=== PATIENT | male | born 1955 | race Hispanic/Latino ===

== ENCOUNTER → 2018-03-30 | Outpatient (CLI) | payer MEDICARE ==
[~2018-03-30] VITALS: Ht 175.3 cm; Wt 90.7 kg
[~2018-03-30] MED LIST: ASPI-1181 PO; CARV3.12 PO; CLOP75TA14 PO; DOXY100T2 PO; INSLAN SQ; LINA5TAB PO; LISI-617 PO; METF-444 PO; METO10TA41 PO; PANT40TA25 PO; PRAV80TA21 PO; REGADENOSON 0.4 MG/5 ML PF SYG IVP SCH; TAMS0.4C32 PO; TRAM50TA4 PO
== END | disposition home or self-care (01) ==
LOC: SHCH 08:31
PROVIDERS: ATTEND Internal Medicine Cardiovascular Disease
DX: I25.119 Atherosclerotic heart disease of native coronary artery with unspecified angina pectoris (principal)
CPT/HCPCS: 78452; 93017; 96374; A9500 ×2; J2785

== ENCOUNTER 2018-04-05 10:32 | Day surgery (SDC) | payer MEDICARE ==
[2018-04-03 17:13] VITALS: BP 111/73
[2018-04-03 17:26] LABS: BASOPHILS % (AUTO) 0.8 % (0.0-5.0); EOSINOPHILS % (AUTO) 2.6 % (0.0-8.0); HEMATOCRIT 47.6 % (42-54); LYMPHOCYTES % (AUTO) 16.3 % (21.0-51.0); MEAN CORPUSCULAR HGB CONC 32.9 g/dL (32.0-36.0); MEAN CORPUSCULAR VOLUME 94.1 fL (79-99); MONOCYTES % (AUTO) 9.7 % (3.0-13.0); NEUTROPHILS % (AUTO) 70.6 % (40.0-77.0); PLATELET COUNT (AUTO) 307 K/uL (130-400); RED BLOOD CELL COUNT(AUTO) 5.06 MIL/uL (4.50-6.20)
[2018-04-03 17:40] LABS: CREATININE 1.5 mg/dL (0.5-1.5); POTASSIUM 4.6 mmol/L (3.5-5.1)
[2018-04-03 17:42] LABS: INR 0.92 (0.85-1.15); PROTHROMBIN TIME 9.7 SEC (9.6-11.6)
[2018-04-03 17:58] LABS: APPEARANCE,URINE SL CLOUDY (CLEAR); BILIRUBIN,URINE NEGATIVE (NEGATIVE); COLOR,URINE YELLOW (YELLOW); GLUCOSE, URINE (UA) NEGATIVE (NEGATIVE); KETONES,URINE 5 mg/dL (NEGATIVE); LEUKOCYTE ESTERASE ,URINE SMALL (NEGATIVE); NITRATE,URINE NEGATIVE (NEGATIVE); OCCULT BLOOD,URINE TRACE-INTACT (NEGATIVE); PROTEIN,URINE 30 (NEGATIVE); UROBILINOGEN,URINE 0.2 mg/dL (0.2-1.0)
[2018-04-03 18:08] LABS: BACTERIA,URINE Few /HPF (None Seen); CALCIUM PHOSPHATE CRYSTALS,UR Few /LPF (None Seen); SQUAMOUS EPITHELIAL CELL,UR Few /HPF (0-2)
[2018-04-03 18:09] LABS: MUCUS,URINE Few LPF (None Seen)
[~2018-04-05] VITALS: Ht 175.3 cm; Wt 92.1 kg
[2018-04-05] VITALS (10 sets, daily range): BP systolic 98–121; BP diastolic 62–79
[~2018-04-05 10:32] MED LIST changes: -DOXY100T2 PO; -REGADENOSON 0.4 MG/5 ML PF SYG IVP SCH; -TRAM50TA4 PO
[2018-04-05 10:57] LABS: BASOPHILS % (AUTO) 0.9 % (0.0-5.0); EOSINOPHILS % (AUTO) 2.3 % (0.0-8.0); HEMATOCRIT 44.7 % (42-54); LYMPHOCYTES % (AUTO) 14.9 % (21.0-51.0); MEAN CORPUSCULAR HEMOGLOBIN 31.6 pg (27.0-33.0); MEAN CORPUSCULAR HGB CONC 33.9 g/dL (32.0-36.0); MEAN CORPUSCULAR VOLUME 93.2 fL (79-99); NEUTROPHILS % (AUTO) 74.9 % (40.0-77.0); PLATELET COUNT (AUTO) 259 K/uL (130-400); RED CELL DISTRIBUTION WIDTH 13.9 % (11.0-15.5); WHITE BLOOD COUNT (AUTO) 10.2 K/uL (4.8-10.8)
[2018-04-05] MEDS ORDERED: SODIUM CHLORIDE 0.9% 1000ML 1,000 ML IV ONE (12:40)
[2018-04-05] MEDS ORDERED: LIDOCAINE HCL-MPF 2% 5ML VIAL ONE ×2 (14:34→15:04)
[2018-04-05] MEDS ORDERED: IOHEXOL 350 MG/ML 100ML INFUS..BTL IV ONE (14:35)
[2018-04-05] MEDS ORDERED: HEPARIN SODIUM 1000UNIT/ML 10ML VIAL ONE (14:35)
[2018-04-05] MEDS ORDERED: BIVALIRUDIN 250 MG/VIAL IV ONE (14:35)
[2018-04-05] MEDS ORDERED: IOHEXOL-350 50ML VIAL IV ONE (14:35)
[2018-04-05] MEDS ORDERED: NITROGLYCERIN 5 MG/ML 10 ML VIAL IV ONE (14:35)
[2018-04-05] MEDS ORDERED: MIDAZOLAM HCL 1 MG/ML 2ML VIAL ONE (14:58)
[2018-04-05] MEDS ORDERED: FENTANYL CITRATE PF 50 MCG/1 ML 2ML VIAL ONE (14:58)
[2018-04-05] MEDS ORDERED: SODIUM CHLORIDE 0.9% 1000ML 1,000 ML IV SCH (15:34)
[2018-04-05] MEDS ORDERED: NITROGLYCERIN 0.4 MG SL TAB SL PRN (15:45)
[2018-04-05] MEDS ORDERED: DEXTROSE 50%-WATER 50 ML DISP.SYRIN IV PRN (15:45)
[2018-04-05] MEDS ORDERED: GLUCAGON 1MG KIT 1 MG ML IM PRN (15:45)
[2018-04-05] MEDS ORDERED: INSULIN HUMULIN R 100 UNIT/ML 3ML SQ SCH (16:30)
== END 2018-04-05 20:12 | disposition home or self-care (01) ==
LOC: DAH 10:32
PROVIDERS: ATTEND Internal Medicine Cardiovascular Disease
DX: I25.10 Atherosclerotic heart disease of native coronary artery without angina pectoris (principal); Z98.890 Other specified postprocedural states; E11.9 Type 2 diabetes mellitus without complications; E78.5 Hyperlipidemia, unspecified; Z93.2 Ileostomy status; I25.2 Old myocardial infarction
CPT/HCPCS: 36415 ×2; 71045; 80048; 81001; 82948 ×2; 85025 ×2; 85610; 85730; 93005; 93458; A4606; C1894 ×2; J1644; J2250; J3490 ×3; J7030; Q9965; Q9967 ×2; 99156; 99157; J0583; J3010

== ENCOUNTER 2018-04-07 21:51 | Observation (INO) | payer MEDICARE ==
[~2018-04-07] VITALS: Ht 175.3 cm; Wt 89.1 kg
[2018-04-07 22:05] LABS: BASOPHILS % (AUTO) 0.6 % (0.0-5.0); EOSINOPHILS % (AUTO) 1.4 % (0.0-8.0); HEMATOCRIT 41.1 % (42-54); LYMPHOCYTES % (AUTO) 11.7 % (21.0-51.0); MEAN CORPUSCULAR HEMOGLOBIN 31.2 pg (27.0-33.0); MEAN CORPUSCULAR HGB CONC 33.6 g/dL (32.0-36.0); MEAN CORPUSCULAR VOLUME 92.9 fL (79-99); MONOCYTES % (AUTO) 6.7 % (3.0-13.0); NEUTROPHILS % (AUTO) 79.6 % (40.0-77.0); NUCLEATED RED BLOOD CELLS 0.1 % (0.0-0.19); PLATELET COUNT (AUTO) 284 K/uL (130-400); RED BLOOD CELL COUNT(AUTO) 4.42 MIL/uL (4.50-6.20); RED CELL DISTRIBUTION WIDTH 13.8 % (11.0-15.5); WHITE BLOOD COUNT (AUTO) 14.1 K/uL (4.8-10.8)
[2018-04-07 22:18] LABS: CREATININE 1.8 mg/dL (0.5-1.5); POTASSIUM 3.9 mmol/L (3.5-5.1)
[2018-04-07 22:22] LABS: BILIRUBIN,TOTAL 0.2 mg/dL (0.2-1.0)
[2018-04-07 22:24] LABS: INR 0.89 (0.85-1.15); PARTIAL THROMBOPLASTIN TIME 28.8 SEC (26.3-35.5); PROTHROMBIN TIME 9.4 SEC (9.6-11.6)
[2018-04-07] MEDS: SODIUM CHLORIDE 0.9% 1000ML 1,000 ML IV SCH (23:15)
[2018-04-07] MEDS ORDERED: ONDANSETRON HCL 4 MG/2 ML VIAL IVP PRN (23:15)
[2018-04-07] MEDS ORDERED: PANTOPRAZOLE 40 MG/VIAL IVP SCH (23:15)
[2018-04-08] VITALS (23 sets, daily range): BP systolic 86–118; BP diastolic 50–100
[2018-04-08] MEDS ORDERED: METOCLOPRAMIDE 10 MG TABLET PO PRN
[2018-04-08] MEDS ORDERED: INSULIN GLARGINE 100 UNITS/ML 10 ML VIAL SQ PRN
[2018-04-08] MEDS ORDERED: SODIUM CHLORIDE 0.9% 100 ML IV ONE (00:17)
[2018-04-08 01:17] LABS: HEMATOCRIT 38.1 % (42-54)
[2018-04-08] MEDS: SODIUM CHLORIDE 0.9% 1000ML 1,000 ML IV SCH (07:15)
[2018-04-08] MEDS ORDERED: PROPOFOL 10 MG/ML 20ML VIAL IV ONE (08:00)
[2018-04-08] MEDS: METFORMIN HCL 500 MG TABLET PO SCH (08:00)
[2018-04-08] MEDS: CARVEDILOL 3.125 MG TABLET PO SCH (09:00)
[2018-04-08] MEDS: LISINOPRIL 5 MG TABLET PO SCH (09:00)
[2018-04-08] MEDS: PANTOPRAZOLE SODIUM 80 MG in NS 100ML IVP SCH ×3 (10:00)
[2018-04-08 10:20] LABS: HEMATOCRIT 32.7 % (42-54)
[2018-04-08] MEDS ORDERED: MORPHINE SULFATE 2 MG/ML 1ML SYG IVP PRN (12:00)
[2018-04-08] MEDS ORDERED: ACETAMINOPHEN EXTENDED RELEASE 650 MG TABLET PO PRN (12:00)
[2018-04-08] MEDS: ATORVASTATIN CALCIUM 20 MG TABLET PO SCH ×2 (12:18→20:27)
[2018-04-08] MEDS: TAMSULOSIN HCL 0.4 MG CAP.ER.24H PO SCH (12:29)
[2018-04-08] MEDS: LINAGLIPTIN 5 MG TABLET PO SCH (12:29)
[2018-04-08] MEDS: PEG 3350/NA SULF,BICARB,CL/KCL 4000 ML SOLN PO SCH ×2 (20:27)
[2018-04-09] VITALS (14 sets, daily range): BP systolic 83–117; BP diastolic 55–73
[2018-04-09 03:57] LABS: HEMATOCRIT 29.8 % (42-54); MEAN CORPUSCULAR HEMOGLOBIN 31.6 pg (27.0-33.0); PLATELET COUNT (AUTO) 209 K/uL (130-400); RED BLOOD CELL COUNT(AUTO) 3.21 MIL/uL (4.50-6.20); RED CELL DISTRIBUTION WIDTH 13.8 % (11.0-15.5); WHITE BLOOD COUNT (AUTO) 14.1 K/uL (4.8-10.8)
[2018-04-09 04:01] LABS: CREATININE 1.2 mg/dL (0.5-1.5); POTASSIUM 4.1 mmol/L (3.5-5.1)
[2018-04-09] MEDS: METFORMIN HCL 500 MG TABLET PO SCH (08:00)
[2018-04-09] MEDS: LINAGLIPTIN 5 MG TABLET PO SCH (08:06)
[2018-04-09] MEDS: LISINOPRIL 5 MG TABLET PO SCH (08:46)
[2018-04-09] MEDS: PANTOPRAZOLE SODIUM 40 MG TABLET.DR PO SCH (08:46)
[2018-04-09] MEDS: TAMSULOSIN HCL 0.4 MG CAP.ER.24H PO SCH (08:47)
[2018-04-09] MEDS: CARVEDILOL 3.125 MG TABLET PO SCH (08:47)
[2018-04-09] MEDS ORDERED: SODIUM CHLORIDE 0.9% 1000ML 1,000 ML IV ONE (11:56)
[2018-04-09] MEDS ORDERED: PROPOFOL 10 MG/ML 20ML VIAL IV ONE (13:18)
[2018-04-09] MEDS ORDERED: PHENYLEPHRINE HCL 10 MG/ML 1ML VIAL IV ONE (13:36)
[2018-04-09] MEDS: ATORVASTATIN CALCIUM 20 MG TABLET PO SCH (21:20)
[2018-04-10 03:14] VITALS: BP 94/66
[2018-04-10 07:25] VITALS: BP 98/68
[2018-04-10] MEDS: LINAGLIPTIN 5 MG TABLET PO SCH (07:42)
[2018-04-10] MEDS: TAMSULOSIN HCL 0.4 MG CAP.ER.24H PO SCH (07:42)
[2018-04-10] MEDS: PANTOPRAZOLE SODIUM 40 MG TABLET.DR PO SCH (07:42)
[2018-04-10] MEDS: METFORMIN HCL 500 MG TABLET PO SCH (07:42)
[2018-04-10] MEDS: LISINOPRIL 5 MG TABLET PO SCH (07:43)
[2018-04-10] MEDS: CARVEDILOL 3.125 MG TABLET PO SCH (07:43)
[2018-04-10 11:30] VITALS: BP 110/70
[2018-05-03] MEDS ORDERED: NITR0.4T50 SL (16:19)
[2018-05-08] MEDS ORDERED: LISI-617 PO (09:58)
[2018-05-08] MEDS ORDERED: CARV3.12 PO (09:58)
[2018-05-13] MEDS ORDERED: CARV3.1262 PO (16:28)
[2018-05-13] MEDS ORDERED: FURO20TA6 PO (16:28)
[2018-05-13] MEDS ORDERED: ATOR20TA65 PO (16:28)
[2018-05-13] MEDS ORDERED: ASPI-891 PO (16:28)
[2018-05-13] MEDS ORDERED: LEVO500T2 PO (16:28)
[2018-05-13] MEDS ORDERED: TRAM50TA4 PO (16:30)
== END 2018-04-10 15:15 | disposition home or self-care (01) ==
LOC: EDH 21:51 → INTOOBSV 22:55 → EDHIP 22:55 → 2AH 04-08 00:50
PROVIDERS: ADMIT Hospitalist; ATTEND Hospitalist
DX: K21.0 Gastro-esophageal reflux disease with esophagitis (principal); K29.01 Acute gastritis with bleeding; D62 Acute posthemorrhagic anemia; N17.9 Acute kidney failure, unspecified; I25.10 Atherosclerotic heart disease of native coronary artery without angina pectoris; E11.65 Type 2 diabetes mellitus with hyperglycemia; I10 Essential (primary) hypertension; D72.829 Elevated white blood cell count, unspecified; E78.5 Hyperlipidemia, unspecified; M10.9 Gout, unspecified; F12.90 Cannabis use, unspecified, uncomplicated; Z95.1 Presence of aortocoronary bypass graft; Z95.5 Presence of coronary angioplasty implant and graft; Z93.3 Colostomy status; Z93.2 Ileostomy status; Z79.4 Long term (current) use of insulin; Z83.3 Family history of diabetes mellitus; Z82.5 Family history of asthma and other chronic lower respiratory diseases; Z82.49 Family history of ischemic heart disease and other diseases of the circulatory system; Z82.0 Family history of epilepsy and other diseases of the nervous system; Z82.3 Family history of stroke
CPT/HCPCS: 36415 ×5; 43235; 44360; 71045 ×2; 80048 ×2; 80053; 81001; 82948 ×7; 83880; 84484; 85014 ×2; 85018 ×2; 85025 ×3; 85027; 85610 ×2; 85730 ×2; 86677; 86850; 86900; 86901; 93005 ×2; 93458; 96374; 99291; A4606; C1894 ×2; C9113 ×2; G0378 ×64; J1644; J2250; J2370; J2704 ×2; J3490 ×3; J7030 ×2; Q9965; Q9967 ×2; 99156; 99157; J0583; J3010

== ENCOUNTER 2018-11-21 08:38 | Emergency (ER) | payer MEDICARE ==
[~2018-11-21 08:38] MED LIST changes: -ASPI-1181 PO; +ASPI-891 PO; +ATOR20TA65 PO; -CARV3.12 PO; +CARV3.1262 PO; +FURO20TA6 PO; +LEVO500T2 PO; -LISI-617 PO; +NITR0.4T50 SL; -PRAV80TA21 PO; +TRAM50TA4 PO
[2018-11-21] MEDS ORDERED: ONDANSETRON HCL 4 MG/2 ML VIAL ONE (08:55)
[2018-11-21] MEDS ORDERED: MORPHINE SULFATE 4 MG/1ML SYG ONE (08:55)
[2018-11-21] MEDS ORDERED: SODIUM CHLORIDE 0.9% 1000ML 1,000 ML IV ONE (08:56)
[2018-11-21 08:59] LABS: BASOPHILS % (AUTO) 0.4 % (0.0-5.0); EOSINOPHILS % (AUTO) 0.2 % (0.0-8.0); HEMATOCRIT 37.8 % (42-54); LYMPHOCYTES % (AUTO) 6.9 % (21.0-51.0); MEAN CORPUSCULAR HEMOGLOBIN 21.2 pg (27.0-33.0); MEAN CORPUSCULAR HGB CONC 30.3 g/dL (32.0-36.0); MEAN CORPUSCULAR VOLUME 69.8 fL (79-99); MONOCYTES % (AUTO) 3.7 % (3.0-13.0); NEUTROPHILS % (AUTO) 88.8 % (40.0-77.0); PLATELET COUNT (AUTO) 283 K/uL (130-400); RED BLOOD CELL COUNT(AUTO) 5.41 MIL/uL (4.50-6.20); RED CELL DISTRIBUTION WIDTH 22.5 % (11.0-15.5); WHITE BLOOD COUNT (AUTO) 11.5 K/uL (4.8-10.8)
[2018-11-21 09:09] LABS: CREATININE 1.2 mg/dL (0.5-1.5); INR 0.93 (0.85-1.15); PARTIAL THROMBOPLASTIN TIME 27.7 SEC (26.3-35.5); POTASSIUM 4.1 mmol/L (3.5-5.1); PROTHROMBIN TIME 9.8 SEC (9.6-11.6)
[2018-11-21 09:14] LABS: ALBUMIN 3.7 g/dL (3.5-5.0); BILIRUBIN,DIRECT 0.1 mg/dL (0.0-0.3); BILIRUBIN,TOTAL 0.6 mg/dL (0.2-1.0); TOTAL PROTEIN, SERUM 8.2 g/dL (6.0-8.3)
== END 2018-11-21 11:16 | disposition home or self-care (01) ==
LOC: EDH 08:38
DX: R10.9 Unspecified abdominal pain (principal); R11.2 Nausea with vomiting, unspecified; I10 Essential (primary) hypertension; E11.9 Type 2 diabetes mellitus without complications
CPT/HCPCS: 36415; 74176; 80048; 80076; 83690; 84484; 85025; 85610; 85730; 93005; 96361; 96374; 96375; 99285; J2270; J2405; J7030

== ENCOUNTER → 2019-03-08 | Outpatient (CLI) | payer MEDICARE ==
[2019-03-08 15:17] LABS: BASOPHILS % (AUTO) 0.9 % (0.0-5.0); HEMATOCRIT 40.3 % (42-54); LYMPHOCYTES % (AUTO) 15.7 % (21.0-51.0); MEAN CORPUSCULAR HEMOGLOBIN 24.3 pg (27.0-33.0); MEAN CORPUSCULAR HGB CONC 31.5 g/dL (32.0-36.0); MEAN CORPUSCULAR VOLUME 77.1 fL (79-99); MONOCYTES % (AUTO) 7.7 % (3.0-13.0); NEUTROPHILS % (AUTO) 71.7 % (40.0-77.0); PLATELET COUNT (AUTO) 307 K/uL (130-400); RED BLOOD CELL COUNT(AUTO) 5.23 MIL/uL (4.50-6.20); RED CELL DISTRIBUTION WIDTH 21.8 % (11.0-15.5); WHITE BLOOD COUNT (AUTO) 11.4 K/uL (4.8-10.8)
[2019-03-08 15:29] LABS: ALBUMIN 3.7 g/dL (3.5-5.0); BILIRUBIN,TOTAL 0.3 mg/dL (0.2-1.0); CREATININE 1.6 mg/dL (0.5-1.5); POTASSIUM 4.1 mmol/L (3.5-5.1)
== END | disposition home or self-care (01) ==
LOC: LAB 14:58
PROVIDERS: ATTEND Internal Medicine Gastroenterology
DX: K43.2 Incisional hernia without obstruction or gangrene (principal)
CPT/HCPCS: 36415; 80053; 85025

== ENCOUNTER 2019-03-12 07:05 | Day surgery (SDC) | payer MEDICARE ==
[~2019-03-12 07:05] MED LIST changes: +SODIUM CHLORIDE 0.9% 1000ML 1,000 ML IV SCH
[2019-03-12] MEDS ORDERED: SODIUM CHLORIDE 0.9% 1000ML 1,000 ML IV ONE (07:17)
[2019-03-12 08:10] VITALS: BP 148/86
[2019-03-12] MEDS ORDERED: IOHEXOL-350 75 ML VIAL IV ONE (13:29)
[2019-03-12 13:55] VITALS: BP 134/66
== END 2019-03-12 15:00 | disposition home or self-care (01) ==
LOC: DAH 07:05 → RAH 07:16 → EDSTATUS 09:00 → DAH 15:00
PROVIDERS: ATTEND Internal Medicine Gastroenterology
DX: K43.2 Incisional hernia without obstruction or gangrene (principal); M47.895 Other spondylosis, thoracolumbar region; K43.9 Ventral hernia without obstruction or gangrene; N13.30 Unspecified hydronephrosis; I10 Essential (primary) hypertension; E11.9 Type 2 diabetes mellitus without complications
CPT/HCPCS: 74178; 82948 ×2; A4215; A4216; A4221; A4222; A4223 ×3; J7030; Q9967; 96360; 96361

== ENCOUNTER 2019-10-03 04:11 | Inpatient (IN) | payer OTHER, MEDICARE ==
[~2019-10-03] VITALS: Ht 170.2 cm; Wt 79.8 kg
[~2019-10-03 04:11] MED LIST changes: +AMOX-429 PO; -LEVO500T2 PO; -SODIUM CHLORIDE 0.9% 1000ML 1,000 ML IV SCH; -TRAM50TA4 PO
[2019-10-03] MEDS ORDERED: METOCLOPRAMIDE 10 MG/2 ML VIAL ONE (04:17)
[2019-10-03 04:50] LABS: BASOPHILS % (AUTO) 0.3 % (0.0-5.0); EOSINOPHILS % (AUTO) 0.1 % (0.0-8.0); HEMATOCRIT 46.8 % (42-54); MEAN CORPUSCULAR HEMOGLOBIN 27.7 pg (27.0-33.0); MEAN CORPUSCULAR VOLUME 81.7 fL (79-99); MONOCYTES % (AUTO) 7.6 % (3.0-13.0); NEUTROPHILS % (AUTO) 84.4 % (40.0-77.0); PLATELET COUNT (AUTO) 366 K/uL (130-400); RED BLOOD CELL COUNT(AUTO) 5.73 MIL/uL (4.50-6.20); RED CELL DISTRIBUTION WIDTH 15.9 % (11.0-15.5); WHITE BLOOD COUNT (AUTO) 18.8 K/uL (4.8-10.8)
[2019-10-03] MEDS ORDERED: ONDANSETRON HCL 4 MG/2 ML VIAL ONE ×2 (04:56→08:27)
[2019-10-03] MEDS ORDERED: FAMOTIDINE/PF 20 MG/2 ML VIAL IV ONE ×2 (04:58→08:28)
[2019-10-03 05:04] LABS: INR 0.93 (0.85-1.15); PROTHROMBIN TIME 10.1 SEC (9.6-11.6)
[2019-10-03 05:09] LABS: ALANINE AMINOTRANSFERASE 28 U/L (12-78); ALBUMIN 3.9 g/dL (3.5-5.0); ASPARTATE AMINOTRANSFERASE 22 U/L (10-37); BILIRUBIN,TOTAL 0.6 mg/dL (0.2-1.0); CARBON DIOXIDE 20 mmol/L (21-32); CREATINE KINASE, TOTAL 199 U/L (21-232); CREATININE 4.9 mg/dL (0.5-1.5); GLOMERULAR FILTR. RATE CALC 13 mL/min (>60); GLUCOSE,RANDOM 197 mg/dL (70-105); LIPASE 176 U/L (114-286); POTASSIUM 3.5 mmol/L (3.5-5.1); SODIUM SERUM 129 mmol/L (136-145); TOTAL PROTEIN, SERUM 8.2 g/dL (6.0-8.3); UREA NITROGEN, BLOOD 52 mg/dL (7-18)
[2019-10-03 05:13] LABS: ALCOHOL, BLOOD < 3 mg/dL (0-10); CHLORIDE 90 mmol/L (101-111)
[2019-10-03] MEDS ORDERED: IOHEXOL-350 75 ML VIAL IV ONE (05:14)
[2019-10-03 05:23] LABS: B-TYPE NATRIURETIC PEPTIDE 29 pg/mL (0-100)
[2019-10-03 05:51] LABS: APPEARANCE,URINE Turbid (CLEAR); BILIRUBIN,URINE Negative (NEGATIVE); COLOR,URINE Dark Yellow (YELLOW); GLUCOSE, URINE (UA) Negative (NEGATIVE); KETONES,URINE Trace mg/dL (NEGATIVE); LEUKOCYTE ESTERASE ,URINE Moderate (NEGATIVE); NITRATE,URINE Negative (NEGATIVE); OCCULT BLOOD,URINE Large (NEGATIVE); PROTEIN,URINE POS 1+ mg/dL (NEGATIVE)
[2019-10-03 05:57] LABS: BACTERIA,URINE Few /HPF (None Seen)
[2019-10-03 05:58] LABS: SQUAMOUS EPITHELIAL CELL,UR Moderate /HPF (0-2)
[2019-10-03 06:13] LABS: AMPHET/METH SCREEN,URINE NEGATIVE (NEGATIVE); BARBITURATE SCREEN, URINE NEGATIVE (NEGATIVE); BENZODIAZEPINES SCREEN,URINE NEGATIVE (NEGATIVE); CANNABINOID SCREEN,URINE POSITIVE (NEGATIVE); COCAINE SCREEN,URINE POSITIVE (NEGATIVE); OPIATE SCREEN,URINE POSITIVE (NEGATIVE); PHENCYCLIDINE SCREEN,URINE NEGATIVE (NEGATIVE)
[2019-10-03] MEDS: SODIUM CHLORIDE 0.9% 1000ML 1,000 ML IV SCH ×2 (07:30→17:37)
[2019-10-03] MEDS ORDERED: ONDANSETRON HCL 4 MG/2 ML VIAL IVP PRN (07:30)
[2019-10-03] MEDS ORDERED: ZOSYN 3.375GM+NS 50ML 50 ML IV SCH (07:30)
[2019-10-03] MEDS ORDERED: SODIUM CHLORIDE 0.9% 1000ML 1,000 ML IV SCH (07:30)
[2019-10-03] MEDS ORDERED: DEXTROSE 50%-WATER 50 ML DISP.SYRIN IV PRN (07:45)
[2019-10-03] MEDS ORDERED: CHLORDIAZEPOXIDE HCL 25 MG CAP PO PRN (07:45)
[2019-10-03] MEDS ORDERED: PHARMACY COMMUNICATION MISC PRN (07:45)
[2019-10-03] MEDS ORDERED: GLUCAGON 1MG KIT 1 MG ML IM PRN (07:45)
[2019-10-03] MEDS ORDERED: LORAZEPAM 2 MG/ML 1 ML VIAL IVP PRN (07:45)
[2019-10-03] MEDS ORDERED: LIDOCAINE HCL 2% VISCOUS 15 ML UDCUP ONE (08:26)
[2019-10-03] MEDS ORDERED: ZOSYN 3.375GM+NS 50ML 50 ML IV ONE (08:27)
[2019-10-03] MEDS: FAMOTIDINE/PF 20 MG/2 ML VIAL IV SCH (09:00)
[2019-10-03 09:15] VITALS: BP 104/72
--- NOTE | 2019-10-03 09:20 | NUR ---
DR RUBALCAVA IN TO SEE PT REGARDING CONSULT. STATED CONTINUE FLUIDS AND HE WILL MONITOR LABS
--- NOTE | 2019-10-03 09:20 | NUR ---
dr juan PAGED REGARDING CONSULT. PENDING CB
--- NOTE | 2019-10-03 09:27 | NUR ---
DR MORAN IS EDITOR CONTINUITY AND SCRIPT. STATED HE WILL BE BY TO SEE PATIENT.
[2019-10-03] MEDS: INSULIN HUMULIN R 100 UNIT/ML 3ML SQ SCH ×3 (11:30→21:10)
[2019-10-03 11:33] VITALS: BP 115/66
[2019-10-03 14:29] LABS: SODIUM,URINE RANDOM 27 mmol/l (40-220)
[2019-10-03 14:44] LABS: CREATININE,URINE RANDOM 383 mg/dL (30-135)
--- NOTE | 2019-10-03 15:48 | NUR ---
CM NOTE/INITIAL ASSESSMENT MEET WITH PATIENT IN ROOM. PER PATIENT, IS INDEPENDENT WITH ADLS, LIVES WITH SON, HAS WHEELCHAIR, WALKER AND CANE IN USE, NO HH OR PROVIDER SERVICES, AND FEELS SAFE TO RETURN HOME ONCE MEDICALLY CLEARED. Addendum: 10/03/19 at 1549 by MAYURI MCCARTHY RN CM Amended: Links added.
[2019-10-03] MEDS ORDERED: POTASSIUM CHLORIDE 20MEQ/100ML 100 ML IV PRN (16:00)
--- NOTE | 2019-10-03 16:01 | NUR ---
POTASSIUM SPOKE WITH Adriel FARFAN FILTER BED PLACER REGARDING BORDERLINE POTASSIUM OF 3.5. PER BRENNAN CANTU TO PLACE PT ON PROTOCOL AND ADMINISTER 20MEQ IV DUE TO NPO STATUS
[2019-10-03 17:08] VITALS: BP 121/75
[2019-10-03] MEDS: LIDOCAINE HCL-MPF 1% 2ML VIAL IV PRN (17:44)
[2019-10-03 19:49] VITALS: BP 96/68
[2019-10-03] MEDS: ZOSYN 3.375GM+NS 50ML 50 ML IV SCH (21:46)
[2019-10-03] MEDS: PHENOL 177 ML BOTTLE PO PRN ×2 (22:11→23:57)
[2019-10-03 23:39] VITALS: BP 96/55
--- NOTE | 2019-10-04 02:32 | NUR ---
10/03/19 4450: HAD PAGED JM BROOKE TO INFORMED HER OF PATIENT COMPLAINING OF SORE THROAT, RETURNED CALL AT THIS TIME. INFORMED JM BROOKE OF PATIENT'S COMPLAIN, ORDERS FOR THROAT SPRAY FOR PAIN, ENTERED AND PATIENT MADE AWARE, WOULD ADMINISTER SOON AVAILABLE, VERBALIZED UNDERSTANDING. 10/04/19 0232: INFORMED JM DECORATIVE CUTTING MACHINE TENDER OF PATIENT BLOOD CULTURE CALLED IN BY LAB RESULT OF GRAM + COCCI IN CLUSTERS, AND PAIRS. NO NEW ORDERS, JUST STATED TO CONTINUE WITH THE ZOYSN. I INFORMED DR. PHAN IS ON THE CASE.
[2019-10-04 04:00] VITALS: BP 107/66
[2019-10-04] MEDS: SODIUM CHLORIDE 0.9% 1000ML 1,000 ML IV SCH ×3 (04:37→22:38)
[2019-10-04] MEDS: PHENOL 177 ML BOTTLE PO PRN ×2 (04:38→06:34)
[2019-10-04 05:09] LABS: BASOPHILS % (AUTO) 0.4 % (0.0-5.0); EOSINOPHILS % (AUTO) 0.6 % (0.0-8.0); HEMATOCRIT 42.5 % (42-54); LYMPHOCYTES % (AUTO) 12.6 % (21.0-51.0); MEAN CORPUSCULAR HEMOGLOBIN 27.4 pg (27.0-33.0); MEAN CORPUSCULAR HGB CONC 31.8 g/dL (32.0-36.0); MEAN CORPUSCULAR VOLUME 86.2 fL (79-99); MONOCYTES % (AUTO) 9.6 % (3.0-13.0); NEUTROPHILS % (AUTO) 76.3 % (40.0-77.0); PLATELET COUNT (AUTO) 272 K/uL (130-400); RED BLOOD CELL COUNT(AUTO) 4.93 MIL/uL (4.50-6.20); RED CELL DISTRIBUTION WIDTH 16.6 % (11.0-15.5); WHITE BLOOD COUNT (AUTO) 10.6 K/uL (4.8-10.8)
[2019-10-04] MEDS: INSULIN HUMULIN R 100 UNIT/ML 3ML SQ SCH ×4 (05:31→20:11)
[2019-10-04 05:41] LABS: CREATININE 2.1 mg/dL (0.5-1.5); POTASSIUM 3.6 mmol/L (3.5-5.1)
[2019-10-04] MEDS: LIDOCAINE HCL-MPF 1% 2ML VIAL IV PRN (06:32)
[2019-10-04 08:17] VITALS: BP 95/53
[2019-10-04] MEDS: FAMOTIDINE/PF 20 MG/2 ML VIAL IV SCH (09:34)
[2019-10-04] MEDS: ZOSYN 3.375GM+NS 50ML 50 ML IV SCH ×2 (09:34→20:22)
[2019-10-04 11:30] VITALS: BP 116/69
--- NOTE | 2019-10-04 16:38 | NUR ---
RE: HOME MEDS REPORTS FAMILY WILL DROP OFF; INSTRUCTED TO TELL FAMILY TO DROP OFF HOME MEDICATIONS IN ER ENTRANCE WITH SECURITY, VERBALIZED UNDERSTANDING.
[2019-10-04 17:03] VITALS: BP 125/78
[2019-10-04] MEDS ORDERED: LISI40TA4 PO (19:17)
[2019-10-04] MEDS ORDERED: INSULIN (19:17)
[2019-10-04 20:00] VITALS: BP 126/77
[2019-10-04 23:57] VITALS: BP 113/60
[2019-10-05 04:00] VITALS: BP 107/60
[2019-10-05 05:54] LABS: BASOPHILS % (AUTO) 0.8 % (0.0-5.0); EOSINOPHILS % (AUTO) 1.7 % (0.0-8.0); HEMATOCRIT 39.6 % (42-54); LYMPHOCYTES % (AUTO) 15.9 % (21.0-51.0); MEAN CORPUSCULAR HEMOGLOBIN 27.2 pg (27.0-33.0); MEAN CORPUSCULAR HGB CONC 31.6 g/dL (32.0-36.0); MEAN CORPUSCULAR VOLUME 86.3 fL (79-99); MONOCYTES % (AUTO) 9.8 % (3.0-13.0); NEUTROPHILS % (AUTO) 71.5 % (40.0-77.0); PLATELET COUNT (AUTO) 229 K/uL (130-400); RED BLOOD CELL COUNT(AUTO) 4.59 MIL/uL (4.50-6.20); WHITE BLOOD COUNT (AUTO) 7.7 K/uL (4.8-10.8)
[2019-10-05 06:08] LABS: CREATININE 1.4 mg/dL (0.5-1.5); MAGNESIUM 1.5 mg/dL (1.80-2.40); POTASSIUM 3.6 mmol/L (3.5-5.1)
[2019-10-05] MEDS ORDERED: MAGNESIUM 2GM PREMIX 50ML 50 ML IV ONE (06:18)
[2019-10-05] MEDS: INSULIN HUMULIN R 100 UNIT/ML 3ML SQ SCH ×4 (06:40→21:00)
[2019-10-05 08:00] VITALS: BP 117/71
[2019-10-05] MEDS ORDERED: MAGNESIUM 2GM PREMIX 50ML 50 ML IV PRN (09:06)
[2019-10-05] MEDS: ZOSYN 3.375GM+NS 50ML 50 ML IV SCH (09:20)
[2019-10-05] MEDS: FAMOTIDINE/PF 20 MG/2 ML VIAL IV SCH (09:20)
[2019-10-05 11:30] VITALS: BP 138/73
[2019-10-05] MEDS: CEFUROXIME AXETIL 250 MG TABLET PO SCH ×2 (14:50→21:44)
[2019-10-05 16:00] VITALS: BP 128/94
[2019-10-05 20:00] VITALS: BP 114/76
[2019-10-05] MEDS ORDERED: LIDOCAINE HCL-MPF 1% 2ML VIAL IV PRN (20:15)
[2019-10-05] MEDS ORDERED: POTASSIUM CHLORIDE 10% ELIXIR 20 MEQ/15 ML UDCUP PO PRN (20:15)
[2019-10-05] MEDS ORDERED: POTASSIUM CHLORIDE 20MEQ/100ML 100 ML IV PRN (20:15)
[2019-10-05] MEDS: POTASSIUM CHLORIDE 20 MEQ ERTAB PO PRN (21:53)
[2019-10-06] VITALS: BP 90/60
[2019-10-06] MEDS: POTASSIUM CHLORIDE 20 MEQ ERTAB PO PRN ×2 (00:29→06:32)
[2019-10-06 04:48] VITALS: BP 123/67
[2019-10-06 06:02] LABS: CREATININE 1.4 mg/dL (0.5-1.5); MAGNESIUM 1.7 mg/dL (1.80-2.40); POTASSIUM 3.8 mmol/L (3.5-5.1)
[2019-10-06] MEDS: INSULIN HUMULIN R 100 UNIT/ML 3ML SQ SCH ×2 (07:08→11:57)
[2019-10-06] MEDS ORDERED: PANTOPRAZOLE SODIUM 40 MG TABLET.DR PO SCH (07:30)
--- NOTE | 2019-10-06 08:00 | NUR ---
AM ROUNDS, ASSESSMENT.
[2019-10-06 08:51] VITALS: BP 142/81
[2019-10-06] MEDS ORDERED: ASPIRIN 81MG TAB.CHEW PO SCH (09:00)
[2019-10-06] MEDS ORDERED: CLOPIDOGREL BISULFATE 75 MG TAB PO SCH (09:00)
[2019-10-06] MEDS: FAMOTIDINE/PF 20 MG/2 ML VIAL IV SCH (09:04)
[2019-10-06] MEDS: CEFUROXIME AXETIL 250 MG TABLET PO SCH (09:05)
--- NOTE | 2019-10-06 09:12 | NUR ---
ASST. TO BR. EMPTIED ILEOILEOSTOMY BAG.
[2019-10-06 12:04] VITALS: BP 149/77
[2019-10-06 17:44] VITALS: BP 121/85
--- NOTE | 2019-10-06 19:20 | NUR ---
discharged now using teach back. rx. for ceftin po given, inst to call dr. juan on tuesday for a 2 week appt. telemonitor removed, saline lock dcd.
== END 2019-10-06 19:45 | disposition home or self-care (01) | DRG 872 ==
LOC: EDH 04:11 → EDHIP 07:24 → 3CH 09:32
PROVIDERS: ADMIT Internal Medicine; ATTEND Internal Medicine
PROC: 0D9670Z Drainage of Stomach with Drainage Device, Via Natural or Artificial Opening (ICD-10-PCS; principal; 2019-10-03)
DX: A41.9 Sepsis, unspecified organism (principal); N39.0 Urinary tract infection, site not specified; E87.1 Hypo-osmolality and hyponatremia; N17.9 Acute kidney failure, unspecified; K56.609 Unspecified intestinal obstruction, unspecified as to partial versus complete obstruction; F10.10 Alcohol abuse, uncomplicated; E11.9 Type 2 diabetes mellitus without complications; K52.9 Noninfective gastroenteritis and colitis, unspecified; E86.9 Volume depletion, unspecified; E86.0 Dehydration; I10 Essential (primary) hypertension; Y90.0 Blood alcohol level of less than 20 mg/100 ml; F14.10 Cocaine abuse, uncomplicated; F12.10 Cannabis abuse, uncomplicated; I25.10 Atherosclerotic heart disease of native coronary artery without angina pectoris; Z82.0 Family history of epilepsy and other diseases of the nervous system; Z82.3 Family history of stroke; Z82.49 Family history of ischemic heart disease and other diseases of the circulatory system; Z82.5 Family history of asthma and other chronic lower respiratory diseases; Z83.3 Family history of diabetes mellitus; Z90.49 Acquired absence of other specified parts of digestive tract; Z93.3 Colostomy status; Z95.1 Presence of aortocoronary bypass graft
CPT/HCPCS: 36415; 71045; 74176; 80048; 80053; 80305; 81001; 82550; 82570; 82948; 83605; 83690; 83735; 83880; 84300; 84484; 85025; 85610; 85730; 87040; 87077; 87088; 87186; 87804; 93005; 99291; G0378; G0480; J1815; J2405; J2543; J2765; J3475; J3480; J3490; J7030; Q9967

== ENCOUNTER 2019-10-22 19:32 | Inpatient (IN) | payer OTHER, MEDICARE ==
[2019-10-22] VITALS (7 sets, daily range): BP systolic 80–98; BP diastolic 54–67
[~2019-10-22] VITALS: Ht 170.2 cm; Wt 79.7 kg
[~2019-10-22 19:32] MED LIST changes: -AMOX-429 PO; -ASPI-891 PO; -ATOR20TA65 PO; -CARV3.1262 PO; -FURO20TA6 PO; -INSLAN SQ; +INSULIN; -LINA5TAB PO; -NITR0.4T50 SL; -PANT40TA25 PO; +PANT40TA54 PO
[2019-10-22] MEDS ORDERED: HEPARIN SODIUM 5000UNIT/ML 1ML VIAL ONE (19:37)
[2019-10-22] MEDS ORDERED: CLOPIDOGREL BISULFATE 300 MG TAB ONE (19:43)
[2019-10-22] MEDS ORDERED: IOHEXOL-350 50ML VIAL IV ONE (19:47)
[2019-10-22] MEDS ORDERED: LIDOCAINE HCL 2% 20ML ONE (19:47)
[2019-10-22] MEDS ORDERED: BIVALIRUDIN 250 MG/VIAL IV ONE (19:47)
[2019-10-22] MEDS ORDERED: NITROGLYCERIN 2 MG/VIAL VIAL IV ONE ×2 (19:47→19:56)
[2019-10-22] MEDS ORDERED: HEPARIN SODIUM 1000UNIT/ML 10ML VIAL ONE (19:47)
[2019-10-22] MEDS ORDERED: ATROPINE SULFATE 0.1 MG/ML 10 ML SYG IVP ONE (19:47)
[2019-10-22] MEDS ORDERED: IOHEXOL 350 MG/ML 100ML INFUS..BTL IV ONE (19:47)
[2019-10-22] MEDS ORDERED: EPTIFIBATIDE 2 MG/ML 10 ML VIAL IVP ONE (19:48)
[2019-10-22] MEDS ORDERED: EPTIFIBATIDE 75MG/100ML BOTTLE 0 ML IV ONE (19:48)
[2019-10-22] MEDS ORDERED: DOPAMINE HCL 400 MG/D5%-WATER 250 ML IV ONE (19:48)
[2019-10-22 19:59] LABS: BASOPHILS % (AUTO) 0.2 % (0.0-5.0); EOSINOPHILS % (AUTO) 0.1 % (0.0-8.0); HEMATOCRIT 50.1 % (42-54); LYMPHOCYTES % (AUTO) 6.8 % (21.0-51.0); MEAN CORPUSCULAR HEMOGLOBIN 28.8 pg (27.0-33.0); MEAN CORPUSCULAR HGB CONC 34.3 g/dL (32.0-36.0); MEAN CORPUSCULAR VOLUME 83.9 fL (79-99); MONOCYTES % (AUTO) 3.8 % (3.0-13.0); NEUTROPHILS % (AUTO) 88.3 % (40.0-77.0); PLATELET COUNT (AUTO) 345 K/uL (130-400); RED BLOOD CELL COUNT(AUTO) 5.97 MIL/uL (4.50-6.20); RED CELL DISTRIBUTION WIDTH 15.8 % (11.0-15.5); WHITE BLOOD COUNT (AUTO) 21.5 K/uL (4.8-10.8)
[2019-10-22 20:21] LABS: INR 1.04 (0.85-1.15); PROTHROMBIN TIME 11.2 SEC (9.6-11.6)
[2019-10-22 20:23] LABS: ALBUMIN 3.6 g/dL (3.5-5.0); BILIRUBIN,TOTAL 0.7 mg/dL (0.2-1.0); CREATININE 4.1 mg/dL (0.5-1.5); POTASSIUM 3.3 mmol/L (3.5-5.1); TOTAL PROTEIN, SERUM 7.6 g/dL (6.0-8.3)
[2019-10-22 20:37] LABS: PARTIAL THROMBOPLASTIN TIME > 120.0 SEC (26.3-35.5)
[2019-10-22] MEDS ORDERED: GLUCAGON 1MG KIT 1 MG ML IM PRN (21:30)
[2019-10-22] MEDS ORDERED: DEXTROSE 50%-WATER 50 ML DISP.SYRIN IV PRN (21:30)
[2019-10-22 23:25] LABS: APPEARANCE,URINE Clear (CLEAR); BILIRUBIN,URINE Negative (NEGATIVE); COLOR,URINE Yellow (YELLOW); GLUCOSE, URINE (UA) 250 mg/dL (NEGATIVE); KETONES,URINE Negative (NEGATIVE); LEUKOCYTE ESTERASE ,URINE Small (NEGATIVE); NITRATE,URINE Negative (NEGATIVE); OCCULT BLOOD,URINE Small (NEGATIVE); PROTEIN,URINE Trace mg/dL (NEGATIVE); UROBILINOGEN,URINE 0.2 mg/dL (0.2-1.0)
--- NOTE | 2019-10-22 23:25 | NUR ---
MD CALL DR PHAN BEEPED AND INFORMED OF CONSULT. ORDER RECEIVED TO PLACE ON [facility] AND IT WAS CARRIED OUT.
--- NOTE | 2019-10-22 23:30 | NUR ---
MD CALL CALL PLACED TO DR HUBBARD AND INFORMED OF CONSULT AND AND ORDER RECEIVED TO PLACE ON HIS CENSUS AND HE WILL SEE IN AM.
[2019-10-22 23:32] LABS: AMPHET/METH SCREEN,URINE NEGATIVE (NEGATIVE); BARBITURATE SCREEN, URINE NEGATIVE (NEGATIVE); BENZODIAZEPINES SCREEN,URINE NEGATIVE (NEGATIVE); CANNABINOID SCREEN,URINE POSITIVE (NEGATIVE); COCAINE SCREEN,URINE POSITIVE (NEGATIVE); OPIATE SCREEN,URINE NEGATIVE (NEGATIVE); PHENCYCLIDINE SCREEN,URINE NEGATIVE (NEGATIVE)
[2019-10-22 23:40] LABS: BACTERIA,URINE Rare /HPF (None Seen); MUCUS,URINE Rare LPF (None Seen); SQUAMOUS EPITHELIAL CELL,UR 0-2 /HPF (0-2)
--- NOTE | 2019-10-22 23:55 | NUR ---
STAFF DEVELOPMENT COORDINATOR CALL LACTIC ACID OF 4 CALLED TO AJ,STAFF DEVELOPMENT COORDINATOR AND ORDERS RECEIVED
[2019-10-23] VITALS (38 sets, daily range): BP systolic 71–118; BP diastolic 45–78
[2019-10-23] MEDS: ZOSYN 3.375GM+NS 50ML 50 ML IV SCH ×3 (00:04→23:26)
[2019-10-23] MEDS ORDERED: OMEG100014 PO (01:35)
[2019-10-23] MEDS ORDERED: LISI40TA4 PO (01:35)
[2019-10-23] MEDS: SODIUM CHLORIDE 0.9% 1000ML 1,000 ML IV SCH ×3 (01:52→06:38)
[2019-10-23] MEDS: DOPAMINE HCL 400 MG/D5%-WATER 250 ML IV PRN ×4 (01:53→21:55)
[2019-10-23 03:41] LABS: HEMATOCRIT 47.3 % (42-54); MEAN CORPUSCULAR HEMOGLOBIN 27.8 pg (27.0-33.0); MEAN CORPUSCULAR HGB CONC 34.7 g/dL (32.0-36.0); MEAN CORPUSCULAR VOLUME 80.3 fL (79-99); RED BLOOD CELL COUNT(AUTO) 5.89 MIL/uL (4.50-6.20); RED CELL DISTRIBUTION WIDTH 15.2 % (11.0-15.5); WHITE BLOOD COUNT (AUTO) 22.8 K/uL (4.8-10.8)
[2019-10-23 03:54] LABS: CREATININE 3.1 mg/dL (0.5-1.5); POTASSIUM 3.1 mmol/L (3.5-5.1)
--- NOTE | 2019-10-23 04:10 | NUR ---
ORDERLY CALL NAUSEA VOMITING CALL PLACED TO AJ,ORDERLY AND INFORMED OF THIS AND ORDERS RECEIVED.
[2019-10-23] MEDS ORDERED: ONDANSETRON HCL 4 MG/2 ML VIAL ONE (04:14)
--- NOTE | 2019-10-23 06:00 | NUR ---
SHEATH REMOVAL DONE AT THIS TIME AFTER VOMITING CONTROLLED. EXPLAINED PROCEDURE TO HIM. SHEATH PULLED AND PRESSURE HELD AND D STAT APPLIED. SEE POST CATH FLOW SHEET.
--- NOTE | 2019-10-23 07:05 | NUR ---
STATUS RT GROIN REMAINS WITH D STAT AND NO BLEEDING OR HEMATOMA NOTED. VSS REMAINS ON DOPAMINE DRIP.
[2019-10-23] MEDS: PANTOPRAZOLE SODIUM 40 MG TABLET.DR PO SCH (07:54)
[2019-10-23] MEDS: ASPIRIN 81MG TAB.CHEW PO SCH (07:54)
[2019-10-23] MEDS: CLOPIDOGREL BISULFATE 75 MG TAB PO SCH (07:55)
[2019-10-23] MEDS: INSULIN HUMULIN R 100 UNIT/ML 3ML SQ SCH ×4 (08:04→21:02)
[2019-10-23] MEDS ORDERED: ALBU90AE IH (09:31)
[2019-10-23] MEDS ORDERED: OMEG-148 PO (09:31)
[2019-10-23] MEDS ORDERED: SODIUM CHLORIDE 0.9% 500ML 500 ML IV ONE (12:26)
[2019-10-23] MEDS ORDERED: SODIUM CHLORIDE 0.9% 500ML 500 ML IV SCH (13:30)
[2019-10-23 13:41] LABS: CREATININE,URINE RANDOM 127 mg/dL (30-135); SODIUM,URINE RANDOM 22 mmol/l (40-220)
[2019-10-23] MEDS: ONDANSETRON HCL 4 MG/2 ML VIAL IVP PRN (15:17)
--- NOTE | 2019-10-23 16:11 | NUR ---
DC PLAN VISITED WITH PATIENT. PATIENT LIVES WITH SON. INDEPENDENT ABLE TO PERFORM ADL'S. PATIENT HAS NO SERVICES OR DME'S. POSITIVE FOR COCAINE ASKED IF HE WANTED INFO REGARDING STOPPING OR PLACES TO GO FOR MEETINGS. SAID NO DOES NOT WANT. HE JUST GOT ANGRY AND THAT IS WHY HE DID IT. Addendum: 10/23/19 at 1613 by SANDRA SERRANO RN CM Amended: Links added.
[2019-10-23] MEDS ORDERED: POTASSIUM CHLORIDE 20 MEQ ERTAB PO SCH (17:15)
[2019-10-24] VITALS (32 sets, daily range): BP systolic 76–148; BP diastolic 35–85
[2019-10-24] MEDS ORDERED: DOPAMINE 800MG/D5 250ML 250 ML IV ONE ×2 (03:33→20:45)
[2019-10-24] MEDS ORDERED: PHARMACY COMMUNICATION MISC SCH (04:15)
[2019-10-24 04:17] LABS: EOSINOPHILS % (AUTO) 0.1 % (0.0-8.0); HEMATOCRIT 40.9 % (42-54); LYMPHOCYTES % (AUTO) 7.2 % (21.0-51.0); MEAN CORPUSCULAR HEMOGLOBIN 28.5 pg (27.0-33.0); MEAN CORPUSCULAR HGB CONC 34.5 g/dL (32.0-36.0); MEAN CORPUSCULAR VOLUME 82.6 fL (79-99); MONOCYTES % (AUTO) 6.1 % (3.0-13.0); NEUTROPHILS % (AUTO) 86.1 % (40.0-77.0); PLATELET COUNT (AUTO) 289 K/uL (130-400); RED BLOOD CELL COUNT(AUTO) 4.95 MIL/uL (4.50-6.20); RED CELL DISTRIBUTION WIDTH 15.7 % (11.0-15.5); WHITE BLOOD COUNT (AUTO) 20.1 K/uL (4.8-10.8)
[2019-10-24 04:45] LABS: ALBUMIN 2.9 g/dL (3.5-5.0); BILIRUBIN,TOTAL 0.7 mg/dL (0.2-1.0); CREATININE 2.2 mg/dL (0.5-1.5); MAGNESIUM 1.8 mg/dL (1.80-2.40); PHOSPHORUS 3.2 mg/dL (2.5-4.9); THYROID STIMULATING HORMONE 0.2 uIU/mL (0.36-3.74); TOTAL PROTEIN, SERUM 6.6 g/dL (6.0-8.3)
[2019-10-24 04:52] LABS: POTASSIUM 2.9 mmol/L (3.5-5.1)
[2019-10-24] MEDS: INSULIN HUMULIN R 100 UNIT/ML 3ML SQ SCH ×4 (05:45→21:00)
[2019-10-24] MEDS ORDERED: POTASSIUM CHLORIDE 10% ELIXIR 20 MEQ/15 ML UDCUP PO PRN (09:00)
[2019-10-24] MEDS ORDERED: LIDOCAINE HCL-MPF 1% 2ML VIAL IV PRN (09:00)
[2019-10-24] MEDS ORDERED: POTASSIUM CHLORIDE 20MEQ/100ML 100 ML IV PRN (09:00)
[2019-10-24] MEDS: ONDANSETRON HCL 4 MG/2 ML VIAL IVP PRN (09:23)
[2019-10-24] MEDS: Vitamin B Complex/Vit C/Folic Acid PO SCH (09:23)
[2019-10-24] MEDS: ASPIRIN 81MG TAB.CHEW PO SCH (09:23)
[2019-10-24] MEDS: POTASSIUM CHLORIDE 20 MEQ ERTAB PO PRN ×2 (09:24→11:25)
[2019-10-24] MEDS: PANTOPRAZOLE SODIUM 40 MG TABLET.DR PO SCH (09:24)
[2019-10-24] MEDS: CLOPIDOGREL BISULFATE 75 MG TAB PO SCH (09:25)
[2019-10-24] MEDS: THIAMINE HCL 100 MG/ML 2ML VIAL IVP SCH (09:28)
[2019-10-24] MEDS: MAGNESIUM 2GM PREMIX 50ML 50 ML IV PRN (11:24)
[2019-10-24] MEDS ORDERED: LACTATED RINGERS 1000ML IV SCH ×2 (11:30→13:00)
[2019-10-24] MEDS: ZOSYN 3.375GM+NS 50ML 50 ML IV SCH ×2 (12:28→23:44)
[2019-10-24 14:29] LABS: MAGNESIUM 2.7 mg/dL (1.80-2.40); POTASSIUM 3.5 mmol/L (3.5-5.1)
[2019-10-24] MEDS: SIMETHICONE 80 MG TAB.CHEW PO PRN ×2 (14:56→21:51)
[2019-10-25] VITALS (37 sets, daily range): BP systolic 82–128; BP diastolic 45–75
[2019-10-25 04:27] LABS: BASOPHILS % (AUTO) 0.1 % (0.0-5.0); EOSINOPHILS % (AUTO) 1.2 % (0.0-8.0); HEMATOCRIT 25.8 % (42-54); LYMPHOCYTES % (AUTO) 8.7 % (21.0-51.0); MEAN CORPUSCULAR HEMOGLOBIN 30.9 pg (27.0-33.0); MEAN CORPUSCULAR HGB CONC 33.3 g/dL (32.0-36.0); MEAN CORPUSCULAR VOLUME 92.8 fL (79-99); MONOCYTES % (AUTO) 11.4 % (3.0-13.0); NEUTROPHILS % (AUTO) 78.1 % (40.0-77.0); PLATELET COUNT (AUTO) 138 K/uL (130-400); RED BLOOD CELL COUNT(AUTO) 2.78 MIL/uL (4.50-6.20); RED CELL DISTRIBUTION WIDTH 15.8 % (11.0-15.5); WHITE BLOOD COUNT (AUTO) 7.7 K/uL (4.8-10.8)
[2019-10-25 04:36] LABS: CREATININE 2.4 mg/dL (0.5-1.5); MAGNESIUM 1.7 mg/dL (1.80-2.40); URIC ACID 3.9 mg/dL (2.6-7.2)
[2019-10-25 05:08] LABS: POTASSIUM 2.9 mmol/L (3.5-5.1)
[2019-10-25] MEDS: INSULIN HUMULIN R 100 UNIT/ML 3ML SQ SCH ×4 (05:59→21:00)
[2019-10-25] MEDS: MAGNESIUM 2GM PREMIX 50ML 50 ML IV PRN (06:23)
[2019-10-25 09:48] LABS: BASOPHILS % (AUTO) 0.2 % (0.0-5.0); EOSINOPHILS % (AUTO) 0.4 % (0.0-8.0); HEMATOCRIT 38.3 % (42-54); LYMPHOCYTES % (AUTO) 8.3 % (21.0-51.0); MEAN CORPUSCULAR HEMOGLOBIN 28.7 pg (27.0-33.0); MEAN CORPUSCULAR HGB CONC 33.7 g/dL (32.0-36.0); MEAN CORPUSCULAR VOLUME 85.3 fL (79-99); MONOCYTES % (AUTO) 4.7 % (3.0-13.0); PLATELET COUNT (AUTO) 229 K/uL (130-400); RED BLOOD CELL COUNT(AUTO) 4.49 MIL/uL (4.50-6.20); WHITE BLOOD COUNT (AUTO) 12.4 K/uL (4.8-10.8)
--- NOTE | 2019-10-25 10:10 | NUR ---
MD ROUNDS in to see pt - updated. Made aware of current CBC result, dose of dopamine gtt and collection of stool specimen. Will hold on administration of additional IVF's for hypotension as pt has (+) fluid balance. Plan of care discussed. No new orders received.
[2019-10-25] MEDS: Vitamin B Complex/Vit C/Folic Acid PO SCH (10:26)
[2019-10-25] MEDS: ASPIRIN 81MG TAB.CHEW PO SCH (10:26)
[2019-10-25] MEDS: PANTOPRAZOLE SODIUM 40 MG TABLET.DR PO SCH (10:26)
[2019-10-25] MEDS: THIAMINE HCL 100 MG/ML 2ML VIAL IVP SCH (10:27)
[2019-10-25] MEDS: CLOPIDOGREL BISULFATE 75 MG TAB PO SCH (10:27)
[2019-10-25] MEDS: ZOSYN 3.375GM+NS 50ML 50 ML IV SCH (13:08)
[2019-10-25] MEDS: SODIUM CHLORIDE 0.9% 500ML 500 ML IV PRN (18:03)
[2019-10-26] VITALS (18 sets, daily range): BP systolic 96–124; BP diastolic 43–76
[2019-10-26] MEDS: ZOSYN 3.375GM+NS 50ML 50 ML IV SCH ×2 (00:57→11:51)
[2019-10-26] MEDS: SIMETHICONE 80 MG TAB.CHEW PO PRN (02:57)
[2019-10-26] MEDS: SODIUM CHLORIDE 0.9% 500ML 500 ML IV PRN (03:03)
[2019-10-26] MEDS: INSULIN HUMULIN R 100 UNIT/ML 3ML SQ SCH ×4 (05:54→20:38)
[2019-10-26 06:00] LABS: CREATININE 1.6 mg/dL (0.5-1.5); MAGNESIUM 1.7 mg/dL (1.80-2.40)
[2019-10-26] MEDS: MAGNESIUM 2GM PREMIX 50ML 50 ML IV PRN (06:45)
[2019-10-26] MEDS: CLOPIDOGREL BISULFATE 75 MG TAB PO SCH (08:18)
[2019-10-26] MEDS: PANTOPRAZOLE SODIUM 40 MG TABLET.DR PO SCH (08:18)
[2019-10-26] MEDS: Vitamin B Complex/Vit C/Folic Acid PO SCH (08:18)
[2019-10-26] MEDS: ASPIRIN 81MG TAB.CHEW PO SCH (08:18)
[2019-10-26] MEDS: THIAMINE HCL 100 MG/ML 2ML VIAL IVP SCH (08:19)
[2019-10-26 08:21] LABS: HEMATOCRIT 35.7 % (42-54); MEAN CORPUSCULAR HEMOGLOBIN 27.9 pg (27.0-33.0); MEAN CORPUSCULAR HGB CONC 32.5 g/dL (32.0-36.0); MEAN CORPUSCULAR VOLUME 85.8 fL (79-99); RED BLOOD CELL COUNT(AUTO) 4.16 MIL/uL (4.50-6.20); RED CELL DISTRIBUTION WIDTH 16.3 % (11.0-15.5); WHITE BLOOD COUNT (AUTO) 8.7 K/uL (4.8-10.8)
--- NOTE | 2019-10-26 16:45 | NUR ---
RECEIVED PT FROM ICU S/P LHC/ ASSESSMENT PT IN BED AAOX3, DENIES ANY PAIN OR DISTRESS AT THIS TIME. NO SOB, LUNGS CLEAR. RIGHT GROIN SITE PURPLE DISCOLORATION, +1 EDEMA, TENDER, PER NURSE NO CHANGES TO RIGHT GROIN. IV INTACT, NO BLEEDING OR SWELLING. DENIES NEEDS. PEDAL PULSE PRESENT LACEY. .
[2019-10-27] MEDS: ZOSYN 3.375GM+NS 50ML 50 ML IV SCH (02:18)
[2019-10-27] MEDS: SODIUM CHLORIDE 0.9% 500ML 500 ML IV PRN (02:18)
[2019-10-27 03:49] LABS: BASOPHILS % (AUTO) 0.2 % (0.0-5.0); EOSINOPHILS % (AUTO) 2.9 % (0.0-8.0); HEMATOCRIT 31.9 % (42-54); LYMPHOCYTES % (AUTO) 15.9 % (21.0-51.0); MEAN CORPUSCULAR HEMOGLOBIN 28.4 pg (27.0-33.0); MEAN CORPUSCULAR HGB CONC 32.9 g/dL (32.0-36.0); MEAN CORPUSCULAR VOLUME 86.2 fL (79-99); MONOCYTES % (AUTO) 6.3 % (3.0-13.0); NEUTROPHILS % (AUTO) 74.2 % (40.0-77.0); PLATELET COUNT (AUTO) 163 K/uL (130-400); RED CELL DISTRIBUTION WIDTH 16.2 % (11.0-15.5); WHITE BLOOD COUNT (AUTO) 8.4 K/uL (4.8-10.8)
[2019-10-27 04:03] LABS: CARBON DIOXIDE 22 mmol/L (21-32); CHLORIDE 108 mmol/L (101-111); CREATININE 1.5 mg/dL (0.5-1.5); GLOMERULAR FILTR. RATE CALC 50 mL/min (>60); GLUCOSE,RANDOM 97 mg/dL (70-105); PHOSPHORUS 2.3 mg/dL (2.5-4.9); POTASSIUM 4.1 mmol/L (3.5-5.1); SODIUM SERUM 136 mmol/L (136-145); UREA NITROGEN, BLOOD 21 mg/dL (7-18)
[2019-10-27 04:06] VITALS: BP 102/64
--- NOTE | 2019-10-27 04:24 | NUR ---
PATIENT A/OX3, DENIES CHEST PAIN OR SOB. RESTING IN BED. BRUISING TO GROIN. ILEOSTOMY BEEFY RED. BOLUS GIVEN FOR OUTPUT PER ORDER. BP WNL. PATIENT TOLERATING ANTIBIOTICS WELL.
[2019-10-27] MEDS: INSULIN HUMULIN R 100 UNIT/ML 3ML SQ SCH ×4 (05:47→20:52)
[2019-10-27] MEDS: CLOPIDOGREL BISULFATE 75 MG TAB PO SCH (07:30)
[2019-10-27] MEDS: PANTOPRAZOLE SODIUM 40 MG TABLET.DR PO SCH (07:30)
[2019-10-27] MEDS: Vitamin B Complex/Vit C/Folic Acid PO SCH (07:30)
[2019-10-27] MEDS: ASPIRIN 81MG TAB.CHEW PO SCH (07:32)
[2019-10-27] MEDS: THIAMINE HCL 100 MG/ML 2ML VIAL IVP SCH (07:32)
[2019-10-27 07:57] VITALS: BP 125/76
--- NOTE | 2019-10-27 08:00 | NUR ---
ASSESSMENT PT IS AAOX3 DENIES CP DENIES NV DENIES SOB. BREATHING PATTERN IS EVEN AND UNLABORED. NO VISIBLE SIGNS OF DISTRESS NOTED, CALL LIGHT WITHIN REACH.
[2019-10-27] MEDS: CEFUROXIME AXETIL 250 MG TABLET PO SCH ×2 (11:27→23:19)
[2019-10-27 12:00] VITALS: BP 120/66
[2019-10-27 16:00] VITALS: BP 113/71
[2019-10-27 19:30] VITALS: BP 109/76
[2019-10-27 23:00] VITALS: BP_SYST 109; BP_SYST 120; BP_DIAS 69; BP_DIAS 72
[2019-10-28 04:00] VITALS: BP 119/75
--- NOTE | 2019-10-28 04:14 | NUR ---
PATIENT DENIES CHEST OR SOB. ILEOSTOMY OUTPUT 200, Bp REMAINS WNL. NO BOLUS GIVEN AT THIS TIME.
[2019-10-28] MEDS: INSULIN HUMULIN R 100 UNIT/ML 3ML SQ SCH ×3 (05:45→16:30)
[2019-10-28 08:00] VITALS: BP 114/69
[2019-10-28] MEDS: PANTOPRAZOLE SODIUM 40 MG TABLET.DR PO SCH (09:46)
[2019-10-28] MEDS: ASPIRIN 81MG TAB.CHEW PO SCH (09:46)
[2019-10-28] MEDS: CLOPIDOGREL BISULFATE 75 MG TAB PO SCH (09:46)
[2019-10-28] MEDS: Vitamin B Complex/Vit C/Folic Acid PO SCH (09:46)
[2019-10-28] MEDS: CEFUROXIME AXETIL 250 MG TABLET PO SCH (09:46)
[2019-10-28] MEDS: THIAMINE HCL 100 MG/ML 2ML VIAL IVP SCH (09:52)
[2019-10-28 11:57] VITALS: BP 133/78
[2019-10-28] MEDS ORDERED: Folic Acid/Vitamin B Comp W-C PO (13:34)
[2019-10-28] MEDS ORDERED: Cefuroxime Axetil PO (13:34)
[2019-10-28] MEDS ORDERED: ASPI-1005 PO (17:09)
[2019-10-28 18:00] VITALS: BP 132/72
--- NOTE | 2019-10-28 18:00 | NUR ---
DISCHARGE INSTRUCTIONS GIVEN TO PATIENT, MADE AWARE OF NEED TO SCHEDULE FOLLOW UP APPOINTMENT WITH PULMO, GI, CARDIO, AND PCP. PATIENT VOICED UNDERSTANDING. INSTRUCTED AND EDUCATED ON NEW PRESCRIPTIONS. PATIENT AT THIS TIME IS AAOX3, DENIES ANY CHEST PAIN OR SHORTNESS OF BREATH. IV AND TELE PACK REMOVED. AWAITING HIS SON TO PICK HIM UP. BELONGINGS RETURNED BY SECURITY
== END 2019-10-28 19:00 | disposition home or self-care (01) | DRG 917 ==
LOC: EDH 19:32 → EDHIP 19:55 → OBSVTOIN 19:55 → PAH.CVR 22:17 → DAHIP 10-23 04:29 → 4BH 10-26 15:50
PROVIDERS: ADMIT Internal Medicine; ATTEND Internal Medicine
PROC: B2111ZZ Fluoroscopy of Multiple Coronary Arteries using Low Osmolar Contrast (ICD-10-PCS; principal; 2019-10-22)
PROC: 4A023N7 Measurement of Cardiac Sampling and Pressure, Left Heart, Percutaneous Approach (ICD-10-PCS; 2019-10-22)
PROC: B2181ZZ Fluoroscopy of Left Internal Mammary Bypass Graft using Low Osmolar Contrast (ICD-10-PCS; 2019-10-22)
PROC: B2131ZZ Fluoroscopy of Multiple Coronary Artery Bypass Grafts using Low Osmolar Contrast (ICD-10-PCS; 2019-10-22)
DX: T40.5X1A Poisoning by cocaine, accidental (unintentional), initial encounter (principal); A41.9 Sepsis, unspecified organism; I21.19 ST elevation (STEMI) myocardial infarction involving other coronary artery of inferior wall; R57.0 Cardiogenic shock; R57.1 Hypovolemic shock; T82.855A Stenosis of coronary artery stent, initial encounter; N17.9 Acute kidney failure, unspecified; N39.0 Urinary tract infection, site not specified; E87.1 Hypo-osmolality and hyponatremia; Q24.5 Malformation of coronary vessels; F32.9 Major depressive disorder, single episode, unspecified; D64.9 Anemia, unspecified; E11.22 Type 2 diabetes mellitus with diabetic chronic kidney disease; E78.5 Hyperlipidemia, unspecified; E83.42 Hypomagnesemia; E87.6 Hypokalemia; F12.10 Cannabis abuse, uncomplicated; F14.10 Cocaine abuse, uncomplicated; F17.210 Nicotine dependence, cigarettes, uncomplicated; G47.00 Insomnia, unspecified; I12.9 Hypertensive chronic kidney disease with stage 1 through stage 4 chronic kidney disease, or unspecified chronic kidney disease; I25.10 Atherosclerotic heart disease of native coronary artery without angina pectoris; I25.5 Ischemic cardiomyopathy; I34.0 Nonrheumatic mitral (valve) insufficiency; I49.3 Ventricular premature depolarization; K59.00 Constipation, unspecified; N18.9 Chronic kidney disease, unspecified; Z79.82 Long term (current) use of aspirin; Z93.3 Colostomy status; Z93.2 Ileostomy status; Z95.1 Presence of aortocoronary bypass graft; Z91.19 Patient's noncompliance with other medical treatment and regimen; Z91.14 Patient's other noncompliance with medication regimen; Z90.49 Acquired absence of other specified parts of digestive tract; Y83.8 Other surgical procedures as the cause of abnormal reaction of the patient, or of later complication, without mention of misadventure at the time of the procedure; Z83.3 Family history of diabetes mellitus; Z82.3 Family history of stroke; Z82.0 Family history of epilepsy and other diseases of the nervous system; Z82.5 Family history of asthma and other chronic lower respiratory diseases; Z82.49 Family history of ischemic heart disease and other diseases of the circulatory system; Y92.89 Other specified places as the place of occurrence of the external cause; T40.7X1A Poisoning by cannabis (derivatives), accidental (unintentional), initial encounter
CPT/HCPCS: 36415; 71045; 76770; 80048; 80053; 80305; 81001; 82270; 82550; 82570; 82948; 83605; 83690; 83735; 83880; 83935; 84100; 84132; 84145; 84300; 84436; 84443; 84484; 84550; 85018; 85025; 85027; 85347; 85610; 85730; 87040; 87088; 93005; 93306; 93454; 93455; 97039; 99291; C1894; G0378; G0480; J0461; J0583; J1265; J1327; J1644; J1815; J2405; J2543; J3411; J3475; J3480; J3490; J7040; J7120; Q9967

== ENCOUNTER 2019-11-01 13:09 | Inpatient (IN) | payer OTHER, MEDICARE ==
[~2019-11-01] VITALS: Ht 170.2 cm; Wt 77.8 kg
[~2019-11-01 13:09] MED LIST changes: +ALBU90AE IH; +ASPI-1005 PO; +Cefuroxime Axetil PO; +Folic Acid/Vitamin B Comp W-C PO; +LISI40TA4 PO; +OMEG100014 PO
[2019-11-01] MEDS ORDERED: ONDANSETRON HCL 4 MG/2 ML VIAL ONE ×3 (13:20→22:53)
[2019-11-01 13:31] LABS: BASOPHILS % (AUTO) 0.2 % (0.0-5.0); EOSINOPHILS % (AUTO) 0.1 % (0.0-8.0); HEMATOCRIT 48.6 % (42-54); LYMPHOCYTES % (AUTO) 4.8 % (21.0-51.0); MEAN CORPUSCULAR HGB CONC 32.9 g/dL (32.0-36.0); MEAN CORPUSCULAR VOLUME 85.1 fL (79-99); MONOCYTES % (AUTO) 6.9 % (3.0-13.0); NEUTROPHILS % (AUTO) 87.4 % (40.0-77.0); PLATELET COUNT (AUTO) 413 K/uL (130-400); RED BLOOD CELL COUNT(AUTO) 5.71 MIL/uL (4.50-6.20); RED CELL DISTRIBUTION WIDTH 18.4 % (11.0-15.5)
[2019-11-01 13:44] LABS: CREATININE 5.1 mg/dL (0.5-1.5); POTASSIUM 5.3 mmol/L (3.5-5.1)
[2019-11-01 13:48] LABS: BILIRUBIN,TOTAL 0.8 mg/dL (0.2-1.0)
[2019-11-01 14:06] LABS: AMYLASE 169 U/L (25-115); CREATINE KINASE, TOTAL 34 U/L (21-232); LIPASE 301 U/L (114-286)
[2019-11-01] MEDS ORDERED: MORPHINE SULFATE 2 MG/ML 1ML SYG ONE ×2 (14:48→22:54)
[2019-11-01] MEDS ORDERED: ZOSYN 3.375GM+NS 50ML 50 ML IV ONE (15:02)
[2019-11-01] MEDS ORDERED: VANCOMYCIN 1GM+NS 250ML 250 ML IV ONE (15:03)
[2019-11-01 16:44] LABS: APPEARANCE,URINE Cloudy (CLEAR); BILIRUBIN,URINE Small (NEGATIVE); COLOR,URINE Dark Yellow (YELLOW); GLUCOSE, URINE (UA) Negative (NEGATIVE); KETONES,URINE Trace mg/dL (NEGATIVE); LEUKOCYTE ESTERASE ,URINE Moderate (NEGATIVE); NITRATE,URINE Negative (NEGATIVE); OCCULT BLOOD,URINE Negative (NEGATIVE); PROTEIN,URINE Trace mg/dL (NEGATIVE)
[2019-11-01 16:50] LABS: AMPHET/METH SCREEN,URINE NEGATIVE (NEGATIVE); BARBITURATE SCREEN, URINE NEGATIVE (NEGATIVE); BENZODIAZEPINES SCREEN,URINE NEGATIVE (NEGATIVE); CANNABINOID SCREEN,URINE POSITIVE (NEGATIVE); COCAINE SCREEN,URINE POSITIVE (NEGATIVE); OPIATE SCREEN,URINE NEGATIVE (NEGATIVE); PHENCYCLIDINE SCREEN,URINE NEGATIVE (NEGATIVE)
[2019-11-01 17:00] LABS: BACTERIA,URINE Few /HPF (None Seen); RBC,URINE None Seen /HPF (0-1)
[2019-11-01 18:40] LABS: CREATININE 4.6 mg/dL (0.5-1.5)
[2019-11-01 18:46] LABS: BILIRUBIN,TOTAL 1.1 mg/dL (0.2-1.0)
[2019-11-01 18:47] LABS: ALBUMIN 3.1 g/dL (3.5-5.0); TOTAL PROTEIN, SERUM 7.5 g/dL (6.0-8.3)
[2019-11-01 18:50] LABS: POTASSIUM 5.7 mmol/L (3.5-5.1)
[2019-11-01] MEDS ORDERED: VANCOMYCIN PROTOCOL PER PHARMACY IV PRN (21:15)
[2019-11-01] MEDS ORDERED: VANCOMYCIN 500MG+NS 100ML 100 ML IV ONE (21:45)
[2019-11-01 22:03] LABS: HEMOGLOBIN A1C 6.8 % (4.0-6.0)
[2019-11-02 00:10] VITALS: BP 97/67
[2019-11-02] MEDS: SODIUM CHLORIDE 0.9% 1000ML 1,000 ML IV SCH ×2 (00:42→05:30)
[2019-11-02] MEDS ORDERED: SODIUM POLYSTYRENE SULFONATE 15 GM/60 ML ML ONE (01:27)
[2019-11-02] MEDS: SODIUM POLYSTYRENE SULFONATE 15 GM/60 ML ML PO SCH (01:44)
[2019-11-02] MEDS ORDERED: ONDANSETRON HCL 4 MG/2 ML VIAL ONE ×2 (03:05→04:26)
[2019-11-02] MEDS ORDERED: FAMOTIDINE/PF 20 MG/2 ML VIAL IV ONE ×2 (03:06→10:11)
[2019-11-02] MEDS: FAMOTIDINE/PF 20 MG/2 ML VIAL IV SCH (03:08)
[2019-11-02 03:53] VITALS: BP 85/64
[2019-11-02 04:19] VITALS: BP 91/62
[2019-11-02] MEDS ORDERED: ZOSYN 3.375GM+NS 50ML 50 ML IV ONE (04:27)
[2019-11-02] MEDS: ONDANSETRON HCL 4 MG/2 ML VIAL IVP PRN (04:28)
[2019-11-02] MEDS ORDERED: ZOSYN 3.375GM+NS 50ML 50 ML IV SCH (05:00)
[2019-11-02 05:29] LABS: BASOPHILS % (AUTO) 0.1 % (0.0-5.0); HEMATOCRIT 41.4 % (42-54); LYMPHOCYTES % (AUTO) 5.1 % (21.0-51.0); MEAN CORPUSCULAR HEMOGLOBIN 28.9 pg (27.0-33.0); MEAN CORPUSCULAR HGB CONC 33.8 g/dL (32.0-36.0); MEAN CORPUSCULAR VOLUME 85.5 fL (79-99); NEUTROPHILS % (AUTO) 87.2 % (40.0-77.0); PLATELET COUNT (AUTO) 360 K/uL (130-400); RED BLOOD CELL COUNT(AUTO) 4.84 MIL/uL (4.50-6.20); RED CELL DISTRIBUTION WIDTH 17.5 % (11.0-15.5); WHITE BLOOD COUNT (AUTO) 22.6 K/uL (4.8-10.8)
[2019-11-02 05:34] VITALS: BP 88/57
[2019-11-02 05:46] LABS: ALBUMIN 3.2 g/dL (3.5-5.0); BILIRUBIN,TOTAL 0.7 mg/dL (0.2-1.0); CREATININE 3.3 mg/dL (0.5-1.5); POTASSIUM 4.3 mmol/L (3.5-5.1); TOTAL PROTEIN, SERUM 7.4 g/dL (6.0-8.3)
[2019-11-02] MEDS: INSULIN HUMULIN R 100 UNIT/ML 3ML SQ SCH ×4 (07:30→21:00)
[2019-11-02] MEDS: FISH OIL 1000 MG/CAP PO SCH (09:00)
[2019-11-02] MEDS ORDERED: LISINOPRIL 40 MG TABLET PO SCH (09:00)
[2019-11-02] MEDS: ASPIRIN 81MG TAB.CHEW PO SCH (09:00)
[2019-11-02] MEDS: CLOPIDOGREL BISULFATE 75 MG TAB PO SCH (09:00)
[2019-11-02] MEDS: TAMSULOSIN HCL 0.4 MG CAP.ER.24H PO SCH (09:00)
--- NOTE | 2019-11-02 09:10 | NUR ---
DCP: HOME met with pt who lives with jennifer Monique [phone]. Pt states he is on SSD, has ileostomy, was approved for providers, but currently has none. Pt reports daughter in law was provider but she moved at the end of the month and [facility] has not found replacement provider. Jennifer Mclaughlin assists as needed and transports. Pt has no DME or HH services, does ileostomy care himself. PCP is Dr Diaz and he uses [facility]. Plan is home [place] Addendum: 11/02/19 at 0913 by YANELIS FLORES Amended: Links added.
[2019-11-02] MEDS ORDERED: TAMSULOSIN HCL 0.4 MG CAP.ER.24H ONE (10:10)
[2019-11-02] MEDS: MEROPENEM 1 GM VIAL IVP SCH (13:00)
--- NOTE | 2019-11-02 16:35 | NUR ---
RD NOTIFICATION Pt remains in ED. Pt with Full Liquid diet order in place. Altered renal function. BMI 26.2 (Overwt status). Pt is well nourished as per EMR. Alb 3.2. No overt signs of Malnutrition. Recommend 60mL Promod TID Recommend LINING REPAIRER consult As medically feasible, Rec to advance diet as tolerated to Renal Non Dialysis, 75gm CCD Addendum: 11/02/19 at [address] Amended: Links added. Addendum: 11/02/19 at [address] RD NOTIFICATION RD Screened. Pt remains in ED. Pt with Full Liquid diet order in place. Altered renal function. BMI 26.2 (Overwt status). Pt is well nourished as per EMR. Alb 3.2. No overt signs of Malnutrition. Recommend 60mL Promod TID Recommend LINING REPAIRER consult As medically feasible, Rec to advance diet as tolerated to Renal Non Dialysis, 75gm CCD
[2019-11-02 17:24] VITALS: BP 92/64
[2019-11-02 20:20] VITALS: BP 114/75
[2019-11-02] MEDS: MIDODRINE HCL 5 MG TABLET PO SCH (21:25)
[2019-11-02] MEDS: LINEZOLID 600 MG/ISO-OSM 300 ML IV SCH (21:25)
[2019-11-03] VITALS (7 sets, daily range): BP systolic 88–114; BP diastolic 62–70
[2019-11-03] MEDS: LOPERAMIDE HCL 2 MG CAP PO SCH (01:18)
[2019-11-03] MEDS: SODIUM CHLORIDE 0.9% 1000ML 1,000 ML IV SCH ×3 (01:18→16:29)
[2019-11-03] MEDS: ONDANSETRON HCL 4 MG/2 ML VIAL IVP PRN ×2 (01:18→06:56)
[2019-11-03] MEDS: MEROPENEM 1 GM VIAL IVP SCH ×2 (01:18→13:39)
[2019-11-03] MEDS: SODIUM POLYSTYRENE SULFONATE 15 GM/60 ML ML PO SCH (01:30)
[2019-11-03 04:32] LABS: HEMATOCRIT 37.5 % (42-54); MEAN CORPUSCULAR HEMOGLOBIN 28.3 pg (27.0-33.0); MEAN CORPUSCULAR HGB CONC 33.1 g/dL (32.0-36.0); MEAN CORPUSCULAR VOLUME 85.6 fL (79-99); PLATELET COUNT (AUTO) 319 K/uL (130-400); RED BLOOD CELL COUNT(AUTO) 4.38 MIL/uL (4.50-6.20); RED CELL DISTRIBUTION WIDTH 17.2 % (11.0-15.5); WHITE BLOOD COUNT (AUTO) 14.7 K/uL (4.8-10.8)
[2019-11-03 05:00] LABS: BAND NEUTROPHILS % (MANUAL) 1 % (0-2); EOSINOPHILS % (MANUAL) 2 % (1-6); LYMPHOCYTES % (MANUAL) 11 % (22-44); MAN.DIFF COMMENT-IMPRESSION MANUAL DIFFERENTIAL; MONOCYTES % (MANUAL) 8 % (2-9); SEGMENTED NEUTROPHILS % 78 % (40-70)
[2019-11-03] MEDS ORDERED: MIDODRINE HCL 5 MG TABLET PO STA (05:15)
--- NOTE | 2019-11-03 05:17 | NUR ---
MELISSA GAME PROGRAMER CALLED AT THIS TIME RELATED TO PT BP OF 85/57 WITH A MAP OF 66. NEW ORDER: MIDODRINE 5MG PO X 1 NOW.
[2019-11-03 05:34] LABS: PHOSPHORUS 3.4 mg/dL (2.5-4.9); POTASSIUM 4.1 mmol/L (3.5-5.1)
[2019-11-03] MEDS: INSULIN HUMULIN R 100 UNIT/ML 3ML SQ SCH ×4 (06:44→20:39)
[2019-11-03] MEDS: SIMETHICONE 80 MG TAB.CHEW PO SCH (06:56)
[2019-11-03] MEDS ORDERED: LOPERAMIDE HCL 2 MG CAP PO PRN (07:00)
[2019-11-03] MEDS ORDERED: VANCOMYCIN 1GM+NS 250ML 250 ML IV SCH (09:00)
[2019-11-03] MEDS: LINEZOLID 600 MG/ISO-OSM 300 ML IV SCH ×2 (09:17→21:04)
[2019-11-03] MEDS: FAMOTIDINE/PF 20 MG/2 ML VIAL IV SCH (09:19)
[2019-11-03] MEDS: CLOPIDOGREL BISULFATE 75 MG TAB PO SCH (09:19)
[2019-11-03] MEDS: FISH OIL 1000 MG/CAP PO SCH (09:19)
[2019-11-03] MEDS: MIDODRINE HCL 5 MG TABLET PO SCH ×3 (09:19→21:04)
[2019-11-03] MEDS: TAMSULOSIN HCL 0.4 MG CAP.ER.24H PO SCH (09:19)
[2019-11-03] MEDS: ASPIRIN 81MG TAB.CHEW PO SCH (09:20)
[2019-11-03] MEDS: LOPERAMIDE HCL 2 MG CAP PO PRN (21:04)
[2019-11-04] MEDS: LOPERAMIDE HCL 2 MG CAP PO SCH ×2 (00:15→12:48)
[2019-11-04] MEDS: LOPERAMIDE HCL 2 MG CAP PO PRN (01:25)
[2019-11-04] MEDS: MEROPENEM 1 GM VIAL IVP SCH ×2 (01:25→12:48)
[2019-11-04] MEDS: SODIUM CHLORIDE 0.9% 1000ML 1,000 ML IV SCH ×3 (01:27→19:01)
[2019-11-04] MEDS: SODIUM POLYSTYRENE SULFONATE 15 GM/60 ML ML PO SCH (01:30)
[2019-11-04] MEDS: SIMETHICONE 80 MG TAB.CHEW PO SCH ×3 (02:27→17:07)
[2019-11-04 03:51] VITALS: BP 119/72
[2019-11-04 05:04] LABS: BASOPHILS % (AUTO) 0.4 % (0.0-5.0); EOSINOPHILS % (AUTO) 1.3 % (0.0-8.0); HEMATOCRIT 33.6 % (42-54); LYMPHOCYTES % (AUTO) 13.9 % (21.0-51.0); MEAN CORPUSCULAR HEMOGLOBIN 29.2 pg (27.0-33.0); MEAN CORPUSCULAR HGB CONC 32.7 g/dL (32.0-36.0); MEAN CORPUSCULAR VOLUME 89.1 fL (79-99); MONOCYTES % (AUTO) 8.1 % (3.0-13.0); PLATELET COUNT (AUTO) 259 K/uL (130-400); RED BLOOD CELL COUNT(AUTO) 3.77 MIL/uL (4.50-6.20); RED CELL DISTRIBUTION WIDTH 16.9 % (11.0-15.5); WHITE BLOOD COUNT (AUTO) 9.4 K/uL (4.8-10.8)
[2019-11-04 05:26] LABS: CREATININE 1.4 mg/dL (0.5-1.5); MAGNESIUM 1.5 mg/dL (1.80-2.40); POTASSIUM 3.9 mmol/L (3.5-5.1)
[2019-11-04] MEDS: INSULIN HUMULIN R 100 UNIT/ML 3ML SQ SCH ×4 (05:38→20:55)
[2019-11-04 08:00] VITALS: BP 112/72
[2019-11-04] MEDS: FAMOTIDINE/PF 20 MG/2 ML VIAL IV SCH (09:16)
[2019-11-04] MEDS: CLOPIDOGREL BISULFATE 75 MG TAB PO SCH (09:16)
[2019-11-04] MEDS: FISH OIL 1000 MG/CAP PO SCH (09:16)
[2019-11-04] MEDS: MIDODRINE HCL 5 MG TABLET PO SCH ×3 (09:16→20:54)
[2019-11-04] MEDS: ASPIRIN 81MG TAB.CHEW PO SCH (09:16)
[2019-11-04] MEDS: TAMSULOSIN HCL 0.4 MG CAP.ER.24H PO SCH (09:16)
[2019-11-04] MEDS: LINEZOLID 600 MG/ISO-OSM 300 ML IV SCH (09:17)
[2019-11-04 11:53] VITALS: BP_SYST 112; BP_SYST 125; BP_DIAS 67; BP_DIAS 77
[2019-11-04] MEDS ORDERED: MAGNESIUM 2GM PREMIX 50ML 50 ML IV SCH (15:00)
[2019-11-04 16:00] VITALS: BP 139/80
--- NOTE | 2019-11-04 17:00 | NUR ---
Sploke with Dr. Shannon regarding pt's discharge, stated pt does not need to be sent home on abx.
[2019-11-04 19:48] VITALS: BP 122/72
--- NOTE | 2019-11-04 20:30 | NUR ---
ASSESSMENT PT PENDING DISCHARGE. ASSESSMENT COMPLETED. SEE FLOW SHEET.
[2019-11-04] MEDS ORDERED: ZYVOX 600 MG TAB PO SCH (21:00)
--- NOTE | 2019-11-04 21:30 | NUR ---
DISCHARGED PT DISCHARGE. PT INFORMED HE NEEDED TO MAKE FOLLOW UP APPT, VERBALIZED UNDERSTANDING OF SAME. PT LEFT FLOOR VIA WHEEL CHAIR AAOX4, PLEASANT AND COOPERATIVE. NO DISTRESS NOTED. IV AND TELE PACK REMOVED. ALL PERSONAL OBTAINED FROM SECURITY AND WITH PATIENT INCLUDING CELL PHONE AND NEWBORN HEARING SCREENER.
== END 2019-11-04 21:36 | disposition home or self-care (01) | DRG 872 ==
LOC: EDH 13:09 → EDHIP 21:12 → 4CH 11-02 16:46
PROVIDERS: ADMIT Internal Medicine; ATTEND Internal Medicine
DX: A41.50 Gram-negative sepsis, unspecified (principal); N12 Tubulo-interstitial nephritis, not specified as acute or chronic; N17.9 Acute kidney failure, unspecified; E78.5 Hyperlipidemia, unspecified; R65.20 Severe sepsis without septic shock; F12.10 Cannabis abuse, uncomplicated; E86.1 Hypovolemia; F14.10 Cocaine abuse, uncomplicated; E87.5 Hyperkalemia; E11.22 Type 2 diabetes mellitus with diabetic chronic kidney disease; E66.9 Obesity, unspecified; Z68.26 Body mass index [BMI] 26.0-26.9, adult; E83.42 Hypomagnesemia; F17.200 Nicotine dependence, unspecified, uncomplicated; G89.29 Other chronic pain; I12.9 Hypertensive chronic kidney disease with stage 1 through stage 4 chronic kidney disease, or unspecified chronic kidney disease; I25.10 Atherosclerotic heart disease of native coronary artery without angina pectoris; I25.2 Old myocardial infarction; I25.5 Ischemic cardiomyopathy; N18.9 Chronic kidney disease, unspecified; Z74.01 Bed confinement status; Z82.0 Family history of epilepsy and other diseases of the nervous system; Z82.3 Family history of stroke; Z82.49 Family history of ischemic heart disease and other diseases of the circulatory system; Z82.5 Family history of asthma and other chronic lower respiratory diseases; Z83.3 Family history of diabetes mellitus; Z91.19 Patient's noncompliance with other medical treatment and regimen; Z93.2 Ileostomy status; Z95.1 Presence of aortocoronary bypass graft; Z95.5 Presence of coronary angioplasty implant and graft
CPT/HCPCS: 36415; 71045; 74176; 80048; 80053; 80305; 81001; 82150; 82550; 82948; 83036; 83605; 83690; 83735; 84100; 84145; 84484; 85025; 87040; 87088; 93005; 99291; A5061; G0378; J1815; J2020; J2185; J2405; J2543; J3370; J3475; J3490; J7030

== ENCOUNTER 2020-09-01 13:42 | Inpatient (IN) | payer MEDICARE ==
[~2020-09-01] VITALS: Ht 170.2 cm; Wt 84.6 kg
[2020-09-01] MEDS: INSULIN HUMULIN R 100 UNIT/ML 3ML SQ SCH (12:08)
[~2020-09-01 13:42] MED LIST changes: -ALBU90AE IH; -Cefuroxime Axetil PO; -Folic Acid/Vitamin B Comp W-C PO; -INSULIN; -LISI40TA4 PO; -TAMS0.4C32 PO
[2020-09-01] MEDS ORDERED: 0.9%NACL 1000ML 1,000 ML IV ONE (14:11)
[2020-09-01 14:47] LABS: PROTHROMBIN TIME 10.9 SEC (9.6-11.6)
[2020-09-01 14:48] LABS: BASOPHILS % (AUTO) 0.6 % (0.0-5.0); EOSINOPHILS % (AUTO) 0.2 % (0.0-8.0); HEMATOCRIT 26.5 % (42-54); MEAN CORPUSCULAR HEMOGLOBIN 17.3 pg (27.0-33.0); MEAN CORPUSCULAR HGB CONC 26.8 g/dL (32.0-36.0); MEAN CORPUSCULAR VOLUME 64.6 fL (79-99); MONOCYTES % (AUTO) 4.5 % (3.0-13.0); NEUTROPHILS % (AUTO) 89.2 % (40.0-77.0); PARTIAL THROMBOPLASTIN TIME 24.7 SEC (26.3-35.5); PLATELET COUNT (AUTO) 345 K/uL (130-400); RED CELL DISTRIBUTION WIDTH 22.3 % (11.0-15.5); WHITE BLOOD COUNT (AUTO) 9.5 K/uL (4.8-10.8)
[2020-09-01 14:52] LABS: CREATININE 2.6 mg/dL (0.5-1.5); POTASSIUM 4.3 mmol/L (3.5-5.1)
[2020-09-01 14:56] LABS: ALBUMIN 4.5 g/dL (3.5-5.0); BILIRUBIN,TOTAL 0.5 mg/dL (0.2-1.0); TOTAL PROTEIN, SERUM 8.8 g/dL (6.0-8.3)
[2020-09-01 14:59] LABS: B-TYPE NATRIURETIC PEPTIDE 70 pg/mL (0-100)
[2020-09-01 15:46] LABS: APPEARANCE,URINE SL CLOUDY (CLEAR); BILIRUBIN,URINE NEGATIVE (NEGATIVE); COLOR,URINE YELLOW (YELLOW); GLUCOSE, URINE (UA) NEGATIVE (NEGATIVE); KETONES,URINE NEGATIVE (NEGATIVE); LEUKOCYTE ESTERASE ,URINE MODERATE (NEGATIVE); NITRATE,URINE POSITIVE (NEGATIVE); OCCULT BLOOD,URINE TRACE-INTACT (NEGATIVE); PROTEIN,URINE TRACE mg/dL (NEGATIVE); UROBILINOGEN,URINE 0.2 mg/dL (0.2-1.0)
[2020-09-01 15:52] LABS: BACTERIA,URINE Few /HPF (None Seen); RBC,URINE 0-1 /HPF (0-1); SQUAMOUS EPITHELIAL CELL,UR Few /HPF (0-2); WBC,URINE 26-50 /HPF (0-1)
[2020-09-01] MEDS ORDERED: CEFTRIAXONE 1G VIAL ONE (16:06)
[2020-09-01] MEDS ORDERED: DEXTROSE 50%-WATER 50 ML DISP.SYRIN IV PRN (16:15)
[2020-09-01] MEDS: 0.9%NACL 1000ML 1,000 ML IV SCH (16:15)
[2020-09-01] MEDS ORDERED: ONDANSETRON 4MG INJ IVP PRN (16:15)
[2020-09-01] MEDS ORDERED: GLUCAGON 1MG KIT 1 MG ML IM PRN (16:15)
[2020-09-01] MEDS ORDERED: ACETAMINOPHEN 325 MG TAB PO PRN (16:15)
[2020-09-01] MEDS: CEFTRIAXONE 1G VIAL IVP SCH (16:15)
[2020-09-01 18:19] LABS: AMPHET/METH SCREEN,URINE NEGATIVE (NEGATIVE); BARBITURATE SCREEN, URINE NEGATIVE (NEGATIVE); BENZODIAZEPINES SCREEN,URINE NEGATIVE (NEGATIVE); CANNABINOID SCREEN,URINE POSITIVE (NEGATIVE); COCAINE SCREEN,URINE POSITIVE (NEGATIVE); OPIATE SCREEN,URINE NEGATIVE (NEGATIVE); PHENCYCLIDINE SCREEN,URINE NEGATIVE (NEGATIVE)
[2020-09-01] MEDS ORDERED: TRAMADOL HCL 50 MG TABLET ONE (20:04)
[2020-09-01 20:11] LABS: RETICULOCYTE % (AUTO) 1.52 % (0.42-2.23)
[2020-09-01 20:24] LABS: % IRON SATURATION 2.8 % (30-44)
[2020-09-01 20:28] LABS: MAGNESIUM 1.7 mg/dL (1.80-2.40); THYROID STIMULATING HORMONE 0.49 uIU/mL (0.36-3.74)
[2020-09-01] MEDS ORDERED: 0.9% NACL 500ML IV.SOLN 500 ML IV ONE (22:39)
[2020-09-02] MEDS ORDERED: CEFTRIAXONE 1G VIAL ONE (04:10)
[2020-09-02] MEDS: CEFTRIAXONE 1G VIAL IVP SCH ×2 (04:15→17:30)
[2020-09-02 04:53] LABS: BASOPHILS % (AUTO) 0.9 % (0.0-5.0); EOSINOPHILS % (AUTO) 3.2 % (0.0-8.0); HEMATOCRIT 23.7 % (42-54); LYMPHOCYTES % (AUTO) 12.7 % (21.0-51.0); MEAN CORPUSCULAR HEMOGLOBIN 18.7 pg (27.0-33.0); MEAN CORPUSCULAR HGB CONC 28.3 g/dL (32.0-36.0); MONOCYTES % (AUTO) 8.5 % (3.0-13.0); NEUTROPHILS % (AUTO) 74.3 % (40.0-77.0); PLATELET COUNT (AUTO) 260 K/uL (130-400); RED BLOOD CELL COUNT(AUTO) 3.59 MIL/uL (4.50-6.20); RED CELL DISTRIBUTION WIDTH 22.5 % (11.0-15.5); WHITE BLOOD COUNT (AUTO) 8.6 K/uL (4.8-10.8)
[2020-09-02 04:54] LABS: CREATININE 1.7 mg/dL (0.5-1.5)
[2020-09-02] MEDS: 0.9%NACL 1000ML 1,000 ML IV SCH ×2 (05:35→17:31)
[2020-09-02] MEDS: INSULIN HUMULIN R 100 UNIT/ML 3ML SQ SCH ×5 (07:30→21:00)
[2020-09-02 08:30] VITALS: BP 105/71
[2020-09-02] MEDS ORDERED: COMPOUND IV MISC 1 EACH IVSOLN MISC PRN (09:00)
[2020-09-02] MEDS ORDERED: PANTOPRAZOLE 40 MG TAB DR PO SCH (09:00)
[2020-09-02] MEDS: ENOXAPARIN SODIUM 30 MG/0.3 ML SQ SCH ×2 (09:00→09:02)
[2020-09-02 09:03] LABS: CREATININE,URINE RANDOM 170 mg/dL (30-135); SODIUM,URINE RANDOM 26 mmol/l (40-220)
[2020-09-02] MEDS: IRON SUCROSE COMPLEX 100 MG in 0.9%NACL 50ML 50 ML IV SCH (09:03)
[2020-09-02] MEDS ORDERED: [UNRECOGNIZED DRUG - REMARK] MISC SCH (10:00)
[2020-09-02] MEDS ORDERED: IBUP-2784 PO (10:42)
[2020-09-02] MEDS ORDERED: ALBU1.252 IH (10:42)
[2020-09-02] MEDS ORDERED: LISI5TAB21 PO (10:42)
[2020-09-02] MEDS ORDERED: TAMS-1 PO (10:42)
[2020-09-02 11:43] VITALS: BP 126/76
[2020-09-02 16:49] LABS: BASOPHILS % (AUTO) 0.8 % (0.0-5.0); EOSINOPHILS % (AUTO) 2.4 % (0.0-8.0); HEMATOCRIT 31.3 % (42-54); LYMPHOCYTES % (AUTO) 12.8 % (21.0-51.0); MEAN CORPUSCULAR HEMOGLOBIN 20.4 pg (27.0-33.0); MEAN CORPUSCULAR HGB CONC 29.4 g/dL (32.0-36.0); MEAN CORPUSCULAR VOLUME 69.6 fL (79-99); MONOCYTES % (AUTO) 8.6 % (3.0-13.0); NEUTROPHILS % (AUTO) 75.1 % (40.0-77.0); PLATELET COUNT (AUTO) 227 K/uL (130-400); RED CELL DISTRIBUTION WIDTH 22.4 % (11.0-15.5); WHITE BLOOD COUNT (AUTO) 8.6 K/uL (4.8-10.8)
[2020-09-02 20:03] VITALS: BP 119/71
[2020-09-02] MEDS: PANTOPRAZOLE 40 MG/VIAL IVP SCH (21:12)
[2020-09-02 23:56] VITALS: BP 135/70
[2020-09-03 03:46] VITALS: BP 127/74
[2020-09-03] MEDS: CEFTRIAXONE 1G VIAL IVP SCH (04:00)
[2020-09-03 05:24] LABS: BASOPHILS % (AUTO) 1.2 % (0.0-5.0); EOSINOPHILS % (AUTO) 3.8 % (0.0-8.0); HEMATOCRIT 30.7 % (42-54); LYMPHOCYTES % (AUTO) 10.8 % (21.0-51.0); MEAN CORPUSCULAR HEMOGLOBIN 19.8 pg (27.0-33.0); MEAN CORPUSCULAR HGB CONC 28.7 g/dL (32.0-36.0); MEAN CORPUSCULAR VOLUME 69.1 fL (79-99); MONOCYTES % (AUTO) 8.9 % (3.0-13.0); NEUTROPHILS % (AUTO) 74.9 % (40.0-77.0); PLATELET COUNT (AUTO) 228 K/uL (130-400); RED BLOOD CELL COUNT(AUTO) 4.44 MIL/uL (4.50-6.20); RED CELL DISTRIBUTION WIDTH 22.1 % (11.0-15.5); WHITE BLOOD COUNT (AUTO) 8.4 K/uL (4.8-10.8)
[2020-09-03 05:34] LABS: CREATININE 1.2 mg/dL (0.5-1.5); PHOSPHORUS 2.4 mg/dL (2.5-4.9); POTASSIUM 3.8 mmol/L (3.5-5.1)
[2020-09-03] MEDS: INSULIN HUMULIN R 100 UNIT/ML 3ML SQ SCH ×2 (07:30→11:30)
[2020-09-03 08:00] VITALS: BP 151/75
[2020-09-03] MEDS: PANTOPRAZOLE 40 MG/VIAL IVP SCH (08:10)
[2020-09-03] MEDS: IRON SUCROSE COMPLEX 100 MG in 0.9%NACL 50ML 50 ML IV SCH (08:10)
[2020-09-03] MEDS: 0.9%NACL 1000ML 1,000 ML IV SCH (08:15)
[2020-09-03 12:00] VITALS: BP 131/61
[2021-01-09] MEDS ORDERED: ASPI-1197 PO (18:20)
[2021-01-09] MEDS ORDERED: FERR-72 PO (18:20)
[2021-01-09] MEDS ORDERED: INSLAN SQ (18:20)
[2021-01-09] MEDS ORDERED: FISH1CAP27 PO (18:20)
[2021-01-11] MEDS ORDERED: CEPH500T PO (11:22)
[2021-01-21] MEDS ORDERED: CEPH500B PO (14:57)
== END 2020-09-03 16:00 | disposition left against medical advice (07) | DRG 378 ==
LOC: EDH 13:42 → EDHIP 16:06 → 4CH 09-02 07:50
PROVIDERS: ADMIT Internal Medicine; ATTEND Internal Medicine
PROC: 30233N1 Transfusion of Nonautologous Red Blood Cells into Peripheral Vein, Percutaneous Approach (ICD-10-PCS; principal; 2020-09-01)
DX: K92.2 Gastrointestinal hemorrhage, unspecified (principal); N17.9 Acute kidney failure, unspecified; N39.0 Urinary tract infection, site not specified; E87.1 Hypo-osmolality and hyponatremia; E87.2 Acidosis; D50.9 Iron deficiency anemia, unspecified; E11.65 Type 2 diabetes mellitus with hyperglycemia; R62.7 Adult failure to thrive; N18.9 Chronic kidney disease, unspecified; I25.10 Atherosclerotic heart disease of native coronary artery without angina pectoris; I12.9 Hypertensive chronic kidney disease with stage 1 through stage 4 chronic kidney disease, or unspecified chronic kidney disease; K43.9 Ventral hernia without obstruction or gangrene; E11.22 Type 2 diabetes mellitus with diabetic chronic kidney disease; E66.9 Obesity, unspecified; E78.5 Hyperlipidemia, unspecified; F12.10 Cannabis abuse, uncomplicated; F14.10 Cocaine abuse, uncomplicated; R19.5 Other fecal abnormalities; E86.9 Volume depletion, unspecified; B96.20 Unspecified Escherichia coli [E. coli] as the cause of diseases classified elsewhere; Z20.822 Contact with and (suspected) exposure to COVID-19; Z95.5 Presence of coronary angioplasty implant and graft; Z53.29 Procedure and treatment not carried out because of patient's decision for other reasons; Z95.1 Presence of aortocoronary bypass graft; Z82.5 Family history of asthma and other chronic lower respiratory diseases; Z82.49 Family history of ischemic heart disease and other diseases of the circulatory system; Z83.3 Family history of diabetes mellitus; Z82.3 Family history of stroke; Z82.0 Family history of epilepsy and other diseases of the nervous system; Z91.19 Patient's noncompliance with other medical treatment and regimen; Z85.038 Personal history of other malignant neoplasm of large intestine; Z68.29 Body mass index [BMI] 29.0-29.9, adult; Z93.2 Ileostomy status
CPT/HCPCS: 36415; 36430; 71045; 74176; 80048; 80053; 80305; 81001; 82270; 82550; 82570; 82948; 83540; 83550; 83605; 83690; 83735; 83880; 84100; 84105; 84145; 84300; 84443; 84484; 85025; 85045; 85610; 85730; 86850; 86900; 86901; 86923; 87040; 87077; 87088; 87186; 87426; 93005; 99291; C9113; G0378; J0696; J1650; J1756; J7030; J7040; P9016; U0003

== ENCOUNTER 2020-09-24 13:53 | Inpatient (IN) | payer MEDICARE ==
[~2020-09-24] VITALS: Ht 170.2 cm; Wt 84.4 kg
[~2020-09-24 13:53] MED LIST changes: +ALBU1.252 IH; +IBUP-2784 PO; +LISI5TAB21 PO; -OMEG100014 PO; +TAMS-1 PO
[2020-09-24 14:49] LABS: BASOPHILS % (AUTO) 0.4 % (0.0-5.0); EOSINOPHILS % (AUTO) 0.9 % (0.0-8.0); HEMATOCRIT 41.2 % (42-54); LYMPHOCYTES % (AUTO) 8.2 % (21.0-51.0); MEAN CORPUSCULAR HEMOGLOBIN 22.4 pg (27.0-33.0); MEAN CORPUSCULAR HGB CONC 29.6 g/dL (32.0-36.0); MEAN CORPUSCULAR VOLUME 75.7 fL (79-99); MONOCYTES % (AUTO) 5.4 % (3.0-13.0); NEUTROPHILS % (AUTO) 84.8 % (40.0-77.0); PLATELET COUNT (AUTO) 310 K/uL (130-400); RED BLOOD CELL COUNT(AUTO) 5.44 MIL/uL (4.50-6.20); RED CELL DISTRIBUTION WIDTH 28.5 % (11.0-15.5); WHITE BLOOD COUNT (AUTO) 13.7 K/uL (4.8-10.8)
[2020-09-24 15:15] LABS: ALBUMIN 3.7 g/dL (3.5-5.0); BILIRUBIN,TOTAL 0.5 mg/dL (0.2-1.0); CREATININE 1.8 mg/dL (0.5-1.5); POTASSIUM 4.7 mmol/L (3.5-5.1); TOTAL PROTEIN, SERUM 7.7 g/dL (6.0-8.3)
[2020-09-24 15:25] LABS: B-TYPE NATRIURETIC PEPTIDE 104 pg/mL (0-100)
[2020-09-24] MEDS ORDERED: 0.9%NACL 1000ML 1,000 ML IV ONE (17:24)
[2020-09-24] MEDS ORDERED: ONDANSETRON 4MG INJ IVP PRN (17:30)
[2020-09-24 20:20] VITALS: BP 99/68
[2020-09-24] MEDS: 0.9%NACL 1000ML 1,000 ML IV SCH (21:14)
[2020-09-24] MEDS: PANTOPRAZOLE 40 MG/VIAL IVP SCH (21:14)
[2020-09-25 00:16] VITALS: BP 106/70
[2020-09-25 04:00] VITALS: BP 99/54
[2020-09-25 05:20] LABS: HEMATOCRIT 37.9 % (42-54); MEAN CORPUSCULAR HEMOGLOBIN 22.1 pg (27.0-33.0); MEAN CORPUSCULAR VOLUME 76.1 fL (79-99); RED BLOOD CELL COUNT(AUTO) 4.98 MIL/uL (4.50-6.20); RED CELL DISTRIBUTION WIDTH 28.4 % (11.0-15.5); WHITE BLOOD COUNT (AUTO) 10.5 K/uL (4.8-10.8)
[2020-09-25 05:35] LABS: CREATININE 1.7 mg/dL (0.5-1.5); POTASSIUM 4.5 mmol/L (3.5-5.1)
[2020-09-25 08:06] VITALS: BP 118/71
[2020-09-25] MEDS ORDERED: METOCLOPRAMIDE 10 MG TABLET PO PRN (09:00)
[2020-09-25] MEDS: 0.9%NACL 1000ML 1,000 ML IV SCH ×2 (09:15→17:26)
[2020-09-25] MEDS: PANTOPRAZOLE 40 MG/VIAL IVP SCH (12:10)
[2020-09-25] MEDS: ASPIRIN 81MG CHEW TAB PO SCH (12:10)
[2020-09-25 12:11] VITALS: BP 110/67
[2020-09-25] MEDS: CLOPIDOGREL 75MG TAB PO SCH (12:11)
[2020-09-25] MEDS: TAMSULOSIN HCL 0.4 MG CAP.ER.24H PO SCH (12:11)
[2020-09-25 16:00] VITALS: BP 132/69
[2020-09-25] MEDS: METFORMIN HCL 500 MG TABLET PO SCH (17:25)
[2020-09-25] MEDS: ALBUTEROL 0.042% 1.25MG/3ML IH PRN (18:41)
[2020-09-25 20:00] VITALS: BP 104/65
[2020-09-26] VITALS: BP 95/51
[2020-09-26 04:00] VITALS: BP 107/68
[2020-09-26] MEDS: 0.9%NACL 1000ML 1,000 ML IV SCH ×2 (04:25→08:43)
[2020-09-26 05:13] LABS: BASOPHILS % (AUTO) 0.6 % (0.0-5.0); EOSINOPHILS % (AUTO) 3.6 % (0.0-8.0); HEMATOCRIT 34.1 % (42-54); LYMPHOCYTES % (AUTO) 14.7 % (21.0-51.0); MEAN CORPUSCULAR HEMOGLOBIN 22.3 pg (27.0-33.0); MEAN CORPUSCULAR HGB CONC 29.3 g/dL (32.0-36.0); MEAN CORPUSCULAR VOLUME 75.9 fL (79-99); MONOCYTES % (AUTO) 6.8 % (3.0-13.0); NEUTROPHILS % (AUTO) 73.9 % (40.0-77.0); PLATELET COUNT (AUTO) 238 K/uL (130-400); RED BLOOD CELL COUNT(AUTO) 4.49 MIL/uL (4.50-6.20); RED CELL DISTRIBUTION WIDTH 27.8 % (11.0-15.5); WHITE BLOOD COUNT (AUTO) 8.4 K/uL (4.8-10.8)
[2020-09-26 05:30] LABS: CREATININE 1.4 mg/dL (0.5-1.5); PHOSPHORUS 3.2 mg/dL (2.5-4.9); POTASSIUM 4.5 mmol/L (3.5-5.1)
[2020-09-26] MEDS: ALBUTEROL 0.042% 1.25MG/3ML IH PRN (06:49)
[2020-09-26 07:12] VITALS: BP 118/65
[2020-09-26] MEDS: ASPIRIN 81MG CHEW TAB PO SCH (08:40)
[2020-09-26] MEDS: PANTOPRAZOLE 40 MG/VIAL IVP SCH (08:42)
[2020-09-26] MEDS: TAMSULOSIN HCL 0.4 MG CAP.ER.24H PO SCH (08:42)
[2020-09-26] MEDS: METFORMIN HCL 500 MG TABLET PO SCH (08:42)
[2020-09-26] MEDS: CLOPIDOGREL 75MG TAB PO SCH (08:42)
[2020-09-26 10:45] VITALS: BP 122/65
[2021-01-09] MEDS ORDERED: FISH1CAP27 PO (18:20)
[2021-01-09] MEDS ORDERED: ASPI-1197 PO (18:20)
[2021-01-09] MEDS ORDERED: INSLAN SQ (18:20)
[2021-01-09] MEDS ORDERED: FERR-72 PO (18:20)
[2021-01-11] MEDS ORDERED: CEPH500T PO (11:22)
[2021-01-21] MEDS ORDERED: CEPH500B PO (14:57)
== END 2020-09-26 11:50 | disposition home or self-care (01) | DRG 439 ==
LOC: EDH 13:53 → EDHIP 16:26 → 3AH 20:14
PROVIDERS: ADMIT Internal Medicine Nephrology; ATTEND Internal Medicine Nephrology
DX: K85.90 Acute pancreatitis without necrosis or infection, unspecified (principal); E87.1 Hypo-osmolality and hyponatremia; E11.9 Type 2 diabetes mellitus without complications; I10 Essential (primary) hypertension; I25.10 Atherosclerotic heart disease of native coronary artery without angina pectoris; Z95.1 Presence of aortocoronary bypass graft; Z83.3 Family history of diabetes mellitus; Z82.49 Family history of ischemic heart disease and other diseases of the circulatory system
CPT/HCPCS: 36415; 71045; 76700; 80048; 80053; 82550; 82948; 83605; 83690; 83880; 84100; 84145; 84484; 85025; 85027; 93005; 94640; 94664; C9113; G0378; J7030

== ENCOUNTER 2021-07-25 13:15 | Emergency (ER) | payer MEDICARE ==
[~2021-07-25] VITALS: Ht 170.2 cm; Wt 86.2 kg
[~2021-07-25 13:15] MED LIST changes: -ASPI-1005 PO; +ASPI-1197 PO; +FISH1CAP27 PO; -IBUP-2784 PO; +INSLAN SQ; +LEVO750T46 PO; -LISI5TAB21 PO
[2021-07-25 13:45] LABS: BASOPHILS % (AUTO) 0.3 % (0.0-5.0); EOSINOPHILS % (AUTO) 0.2 % (0.0-8.0); HEMATOCRIT 43.3 % (42-54); LYMPHOCYTES % (AUTO) 6.1 % (21.0-51.0); MEAN CORPUSCULAR HEMOGLOBIN 33.4 pg (27.0-33.0); MEAN CORPUSCULAR VOLUME 101.2 fL (79-99); MONOCYTES % (AUTO) 2.9 % (3.0-13.0); PLATELET COUNT (AUTO) 294 K/uL (130-400); RED BLOOD CELL COUNT(AUTO) 4.28 MIL/uL (4.50-6.20); RED CELL DISTRIBUTION WIDTH 14.6 % (11.0-15.5); WHITE BLOOD COUNT (AUTO) 13.3 K/uL (4.8-10.8)
[2021-07-25 13:51] LABS: CREATININE 1.5 mg/dL (0.5-1.5); POTASSIUM 4.3 mmol/L (3.5-5.1)
[2021-07-25 13:52] LABS: APPEARANCE,URINE CLOUDY (CLEAR); BILIRUBIN,URINE SMALL (NEGATIVE); COLOR,URINE DARK YELLOW (YELLOW); GLUCOSE, URINE (UA) NEGATIVE (NEGATIVE); KETONES,URINE 15 mg/dL (NEGATIVE); LEUKOCYTE ESTERASE ,URINE SMALL (NEGATIVE); NITRATE,URINE POSITIVE (NEGATIVE); OCCULT BLOOD,URINE TRACE-INTACT (NEGATIVE); PROTEIN,URINE 100 mg/dL (NEGATIVE); UROBILINOGEN,URINE 0.2 mg/dL (0.2-1.0)
[2021-07-25 13:56] LABS: ALBUMIN 3.9 g/dL (3.5-5.0); BILIRUBIN,TOTAL 0.8 mg/dL (0.2-1.0)
[2021-07-25 14:00] LABS: AMPHET/METH SCREEN,URINE NEGATIVE (NEGATIVE); BARBITURATE SCREEN, URINE NEGATIVE (NEGATIVE); BENZODIAZEPINES SCREEN,URINE NEGATIVE (NEGATIVE); CANNABINOID SCREEN,URINE POSITIVE (NEGATIVE); COCAINE SCREEN,URINE POSITIVE (NEGATIVE); OPIATE SCREEN,URINE NEGATIVE (NEGATIVE); PHENCYCLIDINE SCREEN,URINE NEGATIVE (NEGATIVE)
[2021-07-25] MEDS ORDERED: FAMOTIDINE 20MG VIAL IV ONE ×2 (14:00→15:16)
[2021-07-25] MEDS ORDERED: 0.9%NACL 1000ML 1,000 ML IV ONE (14:00)
[2021-07-25] MEDS ORDERED: MAG/ALUM/SIMETH 30 ML UDCUP PO ONE (14:00)
[2021-07-25] MEDS ORDERED: THIAMINE HCL 100 MG/ML 2ML VIAL IVP SCH (14:00)
[2021-07-25] MEDS ORDERED: PROMETHAZINE HCL 25 MG/ML 1ML AMPULE IM ONE (14:00)
[2021-07-25 14:04] LABS: BACTERIA,URINE Moderate /HPF (None Seen); RBC,URINE 0-1 /HPF (0-1)
[2021-07-25] MEDS ORDERED: CEFTRIAXONE 1G VIAL IVP ONE (15:00)
[2021-07-25] MEDS ORDERED: FOLIC ACID IV SCH (15:00)
[2021-07-25] MEDS ORDERED: DIAZEPAM 5 MG/ML 2 ML SYG IVP ONE (15:00)
[2021-07-25] MEDS ORDERED: [UNRECOGNIZED DRUG - OTHER] IV SCH (15:00)
[2021-07-25] MEDS ORDERED: THIAMINE HCL IV SCH (15:00)
[2021-07-25] MEDS ORDERED: MAG/ALUM/SIMETH 30 ML UDCUP ONE (15:17)
[2021-07-25] MEDS ORDERED: METOCLOPRAMIDE 10 MG/2 ML VIAL IVP ONE (15:30)
[2021-07-25] MEDS ORDERED: DICYCLOMINE 20MG (10MG/ML) AMP IM STA (15:57)
[2021-07-25] MEDS ORDERED: ACETAMINOPHEN 500 MG TABLET PO ONE (16:00)
[2021-07-25] MEDS ORDERED: DICY20TA2 PO (16:53)
[2021-07-25] MEDS ORDERED: ONDA4TAB10 PO (16:53)
[2021-07-25] MEDS ORDERED: CEPH500B PO (16:53)
[2021-07-25 17:02] VITALS: BP 143/89
== END 2021-07-25 17:00 | disposition home or self-care (01) ==
LOC: EDH 13:15
DX: N39.0 Urinary tract infection, site not specified (principal); R11.2 Nausea with vomiting, unspecified; F14.10 Cocaine abuse, uncomplicated; F12.10 Cannabis abuse, uncomplicated; E11.9 Type 2 diabetes mellitus without complications; F17.200 Nicotine dependence, unspecified, uncomplicated; I25.10 Atherosclerotic heart disease of native coronary artery without angina pectoris; I25.2 Old myocardial infarction; Z79.4 Long term (current) use of insulin; Z79.82 Long term (current) use of aspirin; Z93.2 Ileostomy status; Z95.1 Presence of aortocoronary bypass graft
CPT/HCPCS: 36415; 71045; 74176; 80053; 80305; 81001; 82010; 83690; 84484; 85025; 87077; 87088; 87186; 96365; 96366; 96372 ×2; 96375; 99285; J0500; J0696; J3360; J3411; J3490 ×2; J7030

== ENCOUNTER 2021-09-10 13:54 | Emergency (ER) | payer MEDICARE ==
[~2021-09-10] VITALS: Ht 167.6 cm; Wt 81.6 kg
[~2021-09-10 13:54] MED LIST changes: +CEFU500T67 PO; +CHOL-34 PO; +DICY20TA2 PO; +FOLI0.8T2 PO; -LEVO750T46 PO; -METO10TA41 PO; +METO5TAB2 PO; +ONDA4TAB10 PO; +SERT-438 PO
[2021-09-10 14:20] LABS: BASOPHILS % (AUTO) 0.3 % (0.0-5.0); EOSINOPHILS % (AUTO) 0.1 % (0.0-8.0); HEMATOCRIT 44.4 % (42-54); LYMPHOCYTES % (AUTO) 4.8 % (21.0-51.0); MEAN CORPUSCULAR HEMOGLOBIN 33.8 pg (27.0-33.0); MEAN CORPUSCULAR VOLUME 93.7 fL (79-99); MONOCYTES % (AUTO) 3.2 % (3.0-13.0); NEUTROPHILS % (AUTO) 91.2 % (40.0-77.0); PLATELET COUNT (AUTO) 290 K/uL (130-400); RED BLOOD CELL COUNT(AUTO) 4.74 MIL/uL (4.50-6.20); RED CELL DISTRIBUTION WIDTH 11.6 % (11.0-15.5)
[2021-09-10] MEDS ORDERED: 0.9%NACL 1000ML 1,000 ML IV SCH (14:30)
[2021-09-10] MEDS ORDERED: DICYCLOMINE HCL 10 MG/5 ML ML PO ONE (14:30)
[2021-09-10] MEDS ORDERED: MAG/ALUM/SIMETH 30 ML UDCUP PO ONE (14:30)
[2021-09-10] MEDS ORDERED: PROMETHAZINE HCL 25 MG/ML 1ML AMPULE IM ONE (14:30)
[2021-09-10] MEDS ORDERED: LIDOCAINE HCL 2% VISCOUS 15 ML UDCUP PO ONE (14:30)
[2021-09-10] MEDS ORDERED: FAMOTIDINE 20MG VIAL IV ONE (14:30)
[2021-09-10 14:38] LABS: CREATININE 1.8 mg/dL (0.5-1.5); POTASSIUM 4.1 mmol/L (3.5-5.1)
[2021-09-10 14:42] LABS: ALBUMIN 3.8 g/dL (3.5-5.0); BILIRUBIN,TOTAL 0.7 mg/dL (0.2-1.0)
[2021-09-10 15:01] LABS: BILIRUBIN,URINE Small (NEGATIVE); COLOR,URINE Dark Yellow (YELLOW); GLUCOSE, URINE (UA) Negative (NEGATIVE); KETONES,URINE Trace mg/dL (NEGATIVE); LEUKOCYTE ESTERASE ,URINE Moderate (NEGATIVE); NITRATE,URINE Negative (NEGATIVE); OCCULT BLOOD,URINE Negative (NEGATIVE); PROTEIN,URINE POS 2+ mg/dL (NEGATIVE)
[2021-09-10 15:08] LABS: AMPHET/METH SCREEN,URINE NEGATIVE (NEGATIVE); BARBITURATE SCREEN, URINE NEGATIVE (NEGATIVE); BENZODIAZEPINES SCREEN,URINE NEGATIVE (NEGATIVE); CANNABINOID SCREEN,URINE POSITIVE (NEGATIVE); COCAINE SCREEN,URINE NEGATIVE (NEGATIVE); OPIATE SCREEN,URINE NEGATIVE (NEGATIVE); PHENCYCLIDINE SCREEN,URINE NEGATIVE (NEGATIVE)
[2021-09-10 15:13] LABS: APPEARANCE,URINE CLOUDY (CLEAR)
[2021-09-10 15:15] LABS: BACTERIA,URINE Few /HPF (None Seen); RBC,URINE 0-1 /HPF (0-1)
[2021-09-10 15:16] LABS: MUCUS,URINE Few LPF (None Seen); SQUAMOUS EPITHELIAL CELL,UR Few /HPF (0-2)
[2021-09-10] MEDS ORDERED: CEFTRIAXONE 1G VIAL IVP ONE (15:30)
[2021-09-10] MEDS ORDERED: CEFTRIAXONE 1G VIAL ONE (15:30)
[2021-09-10] MEDS ORDERED: CEPH500B PO (15:43)
[2021-09-10] MEDS ORDERED: ONDA4TAB10 PO (15:43)
[2021-09-10 16:03] VITALS: BP 119/56
== END 2021-09-10 15:00 | disposition home or self-care (01) ==
LOC: EDH 13:54
DX: N39.0 Urinary tract infection, site not specified (principal); E86.0 Dehydration; R11.2 Nausea with vomiting, unspecified; J44.9 Chronic obstructive pulmonary disease, unspecified; E11.9 Type 2 diabetes mellitus without complications; F17.200 Nicotine dependence, unspecified, uncomplicated; Z79.4 Long term (current) use of insulin; Z79.82 Long term (current) use of aspirin; Z95.1 Presence of aortocoronary bypass graft
CPT/HCPCS: 36415; 71045; 80053; 80305; 81001; 83690; 84484; 85025; 87088; 96361; 96372; 96374; 96375; 99284; J0696; J2550; J3490; J7030

== ENCOUNTER 2021-11-20 14:16 | Emergency (ER) | payer OTHER, MEDICARE ==
[~2021-11-20] VITALS: Ht 170.2 cm; Wt 77.1 kg
[~2021-11-20 14:16] MED LIST changes: +CEPH500B PO
[2021-11-20] MEDS ORDERED: ONDANSETRON 4MG INJ ONE (14:37)
[2021-11-20] MEDS ORDERED: ONDANSETRON 4MG INJ IVP ONE (15:00)
[2021-11-20 15:28] LABS: BASOPHILS % (AUTO) 0.2 % (0.0-5.0); HEMATOCRIT 52.9 % (42-54); MEAN CORPUSCULAR HEMOGLOBIN 32.3 pg (27.0-33.0); MEAN CORPUSCULAR HGB CONC 34.2 g/dL (32.0-36.0); MEAN CORPUSCULAR VOLUME 94.5 fL (79-99); MONOCYTES % (AUTO) 2.2 % (3.0-13.0); NEUTROPHILS % (AUTO) 93.2 % (40.0-77.0); PLATELET COUNT (AUTO) 309 K/uL (130-400); RED CELL DISTRIBUTION WIDTH 13.7 % (11.0-15.5); WHITE BLOOD COUNT (AUTO) 16.1 K/uL (4.8-10.8)
[2021-11-20] MEDS ORDERED: 0.9%NACL 1000ML 1,000 ML IV SCH (15:30)
[2021-11-20 15:43] LABS: POTASSIUM 4.6 mmol/L (3.5-5.1)
[2021-11-20 15:47] LABS: ALBUMIN 4.3 g/dL (3.5-5.0); BILIRUBIN,TOTAL 0.9 mg/dL (0.2-1.0); TOTAL PROTEIN, SERUM 8.9 g/dL (6.0-8.3)
[2021-11-20 16:35] VITALS: BP 125/87
[2021-11-20] MEDS ORDERED: ONDA4TAB10 PO (16:57)
== END 2021-11-20 17:15 | disposition home or self-care (01) ==
LOC: EDH 14:16
DX: E86.0 Dehydration (principal); F19.20 Other psychoactive substance dependence, uncomplicated; E11.9 Type 2 diabetes mellitus without complications; I10 Essential (primary) hypertension; F17.200 Nicotine dependence, unspecified, uncomplicated; I25.10 Atherosclerotic heart disease of native coronary artery without angina pectoris; Z79.82 Long term (current) use of aspirin; Z95.1 Presence of aortocoronary bypass graft
CPT/HCPCS: 36415; 80053; 85025; 93005; 96374; 99284; J2405

== ENCOUNTER 2022-04-26 16:03 | Inpatient (IN) | payer OTHER, MEDICARE ==
[~2022-04-26] VITALS: Ht 170.2 cm; Wt 72.3 kg
[~2022-04-26 16:03] MED LIST changes: +CLOP-31 PO; -CLOP75TA14 PO
[2022-04-26 16:31] LABS: BASOPHILS % (AUTO) 0.4 % (0.0-5.0); EOSINOPHILS % (AUTO) 0.5 % (0.0-8.0); HEMATOCRIT 45.5 % (42-54); LYMPHOCYTES % (AUTO) 9.4 % (21.0-51.0); MEAN CORPUSCULAR HEMOGLOBIN 33.1 pg (27.0-33.0); MEAN CORPUSCULAR HGB CONC 34.9 g/dL (32.0-36.0); MEAN CORPUSCULAR VOLUME 94.8 fL (79-99); NEUTROPHILS % (AUTO) 81.2 % (40.0-77.0); PLATELET COUNT (AUTO) 256 K/uL (130-400); RED CELL DISTRIBUTION WIDTH 12.8 % (11.0-15.5); WHITE BLOOD COUNT (AUTO) 19.9 K/uL (4.8-10.8)
[2022-04-26 16:54] LABS: TOTAL PROTEIN, SERUM 8.3 g/dL (6.0-8.3)
[2022-04-26 16:56] LABS: POTASSIUM 2.9 mmol/L (3.5-5.1)
[2022-04-26] MEDS ORDERED: POTASSIUM CHLORIDE 10% ELIXIR 20 MEQ/15 ML UDCUP PO ONE (17:00)
[2022-04-26 17:46] LABS: PLATELET MORPHOLOGY LARGE PLTS PRESENT
[2022-04-26] MEDS ORDERED: ZOSYN 3.375GM +NS 50ML IV ONE (18:30)
[2022-04-26] MEDS ORDERED: 0.9%NACL 1000ML 2,000 ML IV ONE (18:30)
[2022-04-26] MEDS ORDERED: MORPHINE 2 MG SYG IVP ONE (19:30)
[2022-04-26] MEDS: DEXTROSE 5 % AND 0.9 % NACL 1,000 ML IV SCH (23:04)
[2022-04-26] MEDS: ZOSYN 3.375GM +NS 50ML IV SCH (23:04)
[2022-04-27] MEDS ORDERED: LIDOCAINE HCL 1% 10 ML VIAL ONE (01:03)
[2022-04-27] MEDS: POTASSIUM CHLORIDE 20MEQ/100ML 100 ML IV PRN (01:06)
[2022-04-27] MEDS: LIDOCAINE HCL-MPF 1% 2ML VIAL IV PRN (01:07)
[2022-04-27 04:25] LABS: APPEARANCE,URINE TURBID (CLEAR); BILIRUBIN,URINE NEGATIVE (NEGATIVE); COLOR,URINE YELLOW (YELLOW); GLUCOSE, URINE (UA) NEGATIVE (NEGATIVE); KETONES,URINE NEGATIVE (NEGATIVE); LEUKOCYTE ESTERASE ,URINE 500 Leu/uL (NEGATIVE); NITRATE,URINE NEGATIVE (NEGATIVE); OCCULT BLOOD,URINE SMALL (NEGATIVE); PH,URINE 5.5 (5.0-8.0); PROTEIN,URINE 50 mg/dL (NEGATIVE); UROBILINOGEN,URINE 0.2 mg/dL (0.2-1.0)
[2022-04-27 04:31] LABS: BACTERIA,URINE FEW /HPF (None Seen); CALCIUM OXALATE CRYSTALS,UR RARE /LPF (None Seen); MUCUS,URINE RARE LPF (None Seen); SQUAMOUS EPITHELIAL CELL,UR FEW /HPF (0-2); WBC,URINE TNTC /HPF (0-1)
[2022-04-27] MEDS ORDERED: FISH1CAP27 PO (04:52)
[2022-04-27] MEDS ORDERED: FERR-72 PO (04:55)
[2022-04-27] MEDS ORDERED: DAPA10TA PO (04:56)
[2022-04-27] MEDS ORDERED: LISI5TAB21 PO (04:58)
[2022-04-27] MEDS ORDERED: ATOR40TA69 PO (05:00)
[2022-04-27 05:39] LABS: BASOPHILS % (AUTO) 0.3 % (0.0-5.0); EOSINOPHILS % (AUTO) 0.4 % (0.0-8.0); HEMATOCRIT 42.7 % (42-54); LYMPHOCYTES % (AUTO) 7.2 % (21.0-51.0); MEAN CORPUSCULAR HEMOGLOBIN 33.6 pg (27.0-33.0); MEAN CORPUSCULAR HGB CONC 34.4 g/dL (32.0-36.0); MEAN CORPUSCULAR VOLUME 97.5 fL (79-99); MONOCYTES % (AUTO) 7.8 % (3.0-13.0); NEUTROPHILS % (AUTO) 83.8 % (40.0-77.0); PLATELET COUNT (AUTO) 209 K/uL (130-400); RED BLOOD CELL COUNT(AUTO) 4.38 MIL/uL (4.50-6.20); RED CELL DISTRIBUTION WIDTH 12.9 % (11.0-15.5); WHITE BLOOD COUNT (AUTO) 18.3 K/uL (4.8-10.8)
[2022-04-27 05:49] LABS: CREATININE 2.6 mg/dL (0.5-1.5); POTASSIUM 3.6 mmol/L (3.5-5.1)
[2022-04-27 05:53] LABS: ALBUMIN 3.3 g/dL (3.5-5.0); MAGNESIUM 1.3 mg/dL (1.80-2.40); PHOSPHORUS 4.1 mg/dL (2.5-4.9); TOTAL PROTEIN, SERUM 7.1 g/dL (6.0-8.3)
[2022-04-27] MEDS: ZOSYN 3.375GM +NS 50ML IV SCH ×3 (06:44→20:46)
[2022-04-27] MEDS: MORPHINE 4 MG SYG IVP PRN ×2 (10:51→17:33)
[2022-04-27] MEDS: ONDANSETRON 4MG INJ IVP PRN ×2 (10:51→17:32)
[2022-04-27 11:29] VITALS: BP 92/65
[2022-04-27] MEDS: MAGNESIUM 2GM PREMIX 50ML 50 ML IV PRN (11:31)
[2022-04-27] MEDS: DEXTROSE 5 % AND 0.9 % NACL 1,000 ML IV SCH ×2 (11:50→17:29)
[2022-04-27 15:41] VITALS: BP 98/56
[2022-04-27 20:58] VITALS: BP 125/84
[2022-04-27 21:28] VITALS: BP 125/84
[2022-04-28] VITALS (7 sets, daily range): BP systolic 92–113; BP diastolic 57–84
[2022-04-28] MEDS: ONDANSETRON 4MG INJ IVP PRN ×2 (00:27→05:45)
[2022-04-28] MEDS: MORPHINE 4 MG SYG IVP PRN (00:27)
[2022-04-28] MEDS: PANTOPRAZOLE 40 MG/VIAL IVP SCH ×2 (04:13→09:30)
[2022-04-28 05:08] LABS: HEMATOCRIT 47.1 % (42-54); MEAN CORPUSCULAR HEMOGLOBIN 33.1 pg (27.0-33.0); MEAN CORPUSCULAR HGB CONC 34.4 g/dL (32.0-36.0); MEAN CORPUSCULAR VOLUME 96.3 fL (79-99); RED BLOOD CELL COUNT(AUTO) 4.89 MIL/uL (4.50-6.20); RED CELL DISTRIBUTION WIDTH 12.6 % (11.0-15.5); WHITE BLOOD COUNT (AUTO) 18.2 K/uL (4.8-10.8)
[2022-04-28 05:23] LABS: CREATININE 2.1 mg/dL (0.5-1.5)
[2022-04-28 05:35] LABS: POTASSIUM 2.8 mmol/L (3.5-5.1)
[2022-04-28] MEDS: DEXTROSE 5 % AND 0.9 % NACL 1,000 ML IV SCH ×2 (05:46→21:07)
[2022-04-28] MEDS: ZOSYN 3.375GM +NS 50ML IV SCH ×3 (05:46→20:39)
[2022-04-28] MEDS: POTASSIUM CHLORIDE 20MEQ/100ML 100 ML IV PRN ×2 (05:46→09:42)
[2022-04-28] MEDS: LIDOCAINE HCL-MPF 1% 2ML VIAL IV PRN (09:42)
[2022-04-28] MEDS: THIAMINE HCL 100 MG/ML 2ML VIAL IVP SCH (14:00)
[2022-04-29 03:32] VITALS: BP 128/68
[2022-04-29 04:01] LABS: HEMATOCRIT 39.8 % (42-54); MEAN CORPUSCULAR HEMOGLOBIN 33.5 pg (27.0-33.0); MEAN CORPUSCULAR HGB CONC 34.4 g/dL (32.0-36.0); MEAN CORPUSCULAR VOLUME 97.3 fL (79-99); RED BLOOD CELL COUNT(AUTO) 4.09 MIL/uL (4.50-6.20); RED CELL DISTRIBUTION WIDTH 12.5 % (11.0-15.5)
[2022-04-29 04:11] LABS: CREATININE 1.7 mg/dL (0.5-1.5); MAGNESIUM 1.6 mg/dL (1.80-2.40); POTASSIUM 3.3 mmol/L (3.5-5.1)
[2022-04-29] MEDS: ZOSYN 3.375GM +NS 50ML IV SCH ×3 (05:13→21:27)
[2022-04-29 08:00] VITALS: BP 110/68
[2022-04-29] MEDS: PANTOPRAZOLE 40 MG/VIAL IVP SCH (08:22)
[2022-04-29 11:00] VITALS: BP 97/71
[2022-04-29] MEDS: POTASSIUM CHLORIDE 10% ELIXIR 20 MEQ/15 ML UDCUP PO PRN ×3 (13:01→15:21)
[2022-04-29] MEDS: THIAMINE HCL 100 MG/ML 2ML VIAL IVP SCH (13:02)
[2022-04-29] MEDS: MAGNESIUM 2GM PREMIX 50ML 50 ML IV PRN (13:02)
[2022-04-29 16:00] VITALS: BP 131/57
[2022-04-29] MEDS: DEXTROSE 5 % AND 0.9 % NACL 1,000 ML IV SCH (16:01)
[2022-04-29 20:00] VITALS: BP 101/66
[2022-04-30] VITALS: BP 103/62
[2022-04-30 03:56] VITALS: BP 108/69
[2022-04-30] MEDS: DEXTROSE 5 % AND 0.9 % NACL 1,000 ML IV SCH (04:51)
[2022-04-30] MEDS: ZOSYN 3.375GM +NS 50ML IV SCH (04:52)
[2022-04-30 07:30] VITALS: BP_SYST 123; BP_SYST 175; BP_DIAS 76
[2022-04-30] MEDS: PANTOPRAZOLE 40 MG/VIAL IVP SCH (09:47)
[2022-04-30 11:30] VITALS: BP 134/68
== END 2022-04-30 14:50 | disposition home or self-care (01) | DRG 389 ==
LOC: EDH 16:03 → EDHIP 19:46 → 4BH 04-27 11:45
PROVIDERS: ADMIT Internal Medicine Infectious Disease; ATTEND Internal Medicine Infectious Disease
DX: K56.699 Other intestinal obstruction unspecified as to partial versus complete obstruction (principal); N17.9 Acute kidney failure, unspecified; N39.0 Urinary tract infection, site not specified; E87.6 Hypokalemia; F12.90 Cannabis use, unspecified, uncomplicated; E86.0 Dehydration; F10.90 Alcohol use, unspecified, uncomplicated; E11.9 Type 2 diabetes mellitus without complications; E66.9 Obesity, unspecified; E78.00 Pure hypercholesterolemia, unspecified; I10 Essential (primary) hypertension; I25.10 Atherosclerotic heart disease of native coronary artery without angina pectoris; Z95.5 Presence of coronary angioplasty implant and graft; Z95.1 Presence of aortocoronary bypass graft; Z83.3 Family history of diabetes mellitus
CPT/HCPCS: 36415; 74176; 80048; 80053; 81001; 83690; 83735; 84100; 84132; 85025; 85027; 87088; C9113; G0378; J2270; J2405; J2543; J3411; J3475; J3480; J3490; J7042

== ENCOUNTER 2022-08-13 17:35 | Inpatient (IN) | payer MEDICARE ==
[~2022-08-13] VITALS: Ht 170.2 cm; Wt 78.7 kg
[~2022-08-13 17:35] MED LIST changes: -ALBU1.252 IH; -ASPI-1197 PO; -CEFU500T67 PO; -CEPH500B PO; -CHOL-34 PO; -DICY20TA2 PO; +FERR-72 PO; -FOLI0.8T2 PO; +FOLI1TAB85 PO; +IBUP-2076 PO; -INSLAN SQ; -METF-444 PO; -METO5TAB2 PO; -ONDA4TAB10 PO; -PANT40TA54 PO; +TEMA15CA PO
[2022-08-13] MEDS ORDERED: 0.9%NACL 1000ML 1,000 ML IV ONE ×2 (18:00→18:30)
[2022-08-13 18:02] LABS: HEMATOCRIT 42.6 % (42-54); MEAN CORPUSCULAR HEMOGLOBIN 31.8 pg (27.0-33.0); MEAN CORPUSCULAR HGB CONC 35.9 g/dL (32.0-36.0); MEAN CORPUSCULAR VOLUME 88.6 fL (79-99); NUCLEATED RED BLOOD CELLS 0.1 % (0.0-0.19); RED BLOOD CELL COUNT(AUTO) 4.81 MIL/uL (4.50-6.20); RED CELL DISTRIBUTION WIDTH 14.2 % (11.0-15.5); WHITE BLOOD COUNT (AUTO) 15.9 K/uL (4.8-10.8)
[2022-08-13 18:23] LABS: ALBUMIN 2.8 g/dL (3.5-5.0); CREATININE 5.3 mg/dL (0.5-1.5); POTASSIUM 3.6 mmol/L (3.5-5.1); TOTAL PROTEIN, SERUM 8.1 g/dL (6.0-8.3)
[2022-08-13] MEDS ORDERED: ONDANSETRON 4MG INJ ONE (18:29)
[2022-08-13] MEDS ORDERED: ONDANSETRON 4MG INJ IVP ONE (18:30)
[2022-08-13] MEDS ORDERED: ALPRAZOLAM 0.5 MG TABLET PO PRN (21:30)
[2022-08-13] MEDS ORDERED: ARTIFICAL TEARS SOL 15 ML OP PRN (21:30)
[2022-08-13 22:22] LABS: PROTHROMBIN TIME 10.9 SEC (9.6-11.6)
[2022-08-13 22:24] LABS: PARTIAL THROMBOPLASTIN TIME 28.4 SEC (26.3-35.5)
[2022-08-13] MEDS: 0.9%NACL 1000ML 1,000 ML IV SCH ×2 (23:36)
[2022-08-13] MEDS: ZOSYN 3.375GM +NS 50ML IVPB SCH (23:36)
[2022-08-14] VITALS (27 sets, daily range): BP systolic 81–127; BP diastolic 43–81
[2022-08-14] MEDS: NOREPINEPHRIN 4MG/NS 250ML 250 ML IV PRN ×5 (00:50→20:49)
[2022-08-14 01:09] LABS: BASOPHILS % (AUTO) 0.1 % (0.0-5.0); EOSINOPHILS % (AUTO) 0.1 % (0.0-8.0); HEMATOCRIT 36.5 % (42-54); LYMPHOCYTES % (AUTO) 4.9 % (21.0-51.0); MEAN CORPUSCULAR HEMOGLOBIN 32.6 pg (27.0-33.0); MEAN CORPUSCULAR HGB CONC 36.2 g/dL (32.0-36.0); MEAN CORPUSCULAR VOLUME 90.1 fL (79-99); MONOCYTES % (AUTO) 8.3 % (3.0-13.0); NEUTROPHILS % (AUTO) 85.9 % (40.0-77.0); PLATELET COUNT (AUTO) 400 K/uL (130-400); RED BLOOD CELL COUNT(AUTO) 4.05 MIL/uL (4.50-6.20); RED CELL DISTRIBUTION WIDTH 14.3 % (11.0-15.5); WHITE BLOOD COUNT (AUTO) 15.4 K/uL (4.8-10.8)
[2022-08-14 01:18] LABS: ALBUMIN 2.3 g/dL (3.5-5.0); CREATININE 4.1 mg/dL (0.5-1.5); MAGNESIUM 1.4 mg/dL (1.80-2.40); POTASSIUM 3.9 mmol/L (3.5-5.1); TOTAL PROTEIN, SERUM 5.9 g/dL (6.0-8.3)
[2022-08-14] MEDS: MAGNESIUM 2GM PREMIX 50ML 50 ML IV SCH (01:45)
[2022-08-14 02:28] LABS: B-TYPE NATRIURETIC PEPTIDE 523 pg/mL (0-100)
[2022-08-14] MEDS: ACETAMINOPHEN 325 MG TAB PO PRN ×2 (05:25→21:40)
[2022-08-14] MEDS ORDERED: HYDRALAZINE 20MG/ML VIAL IV PRN (05:30)
[2022-08-14] MEDS ORDERED: LACTULOSE 20 GM/30 ML UDCUP PO PRN (05:30)
[2022-08-14] MEDS ORDERED: LABETALOL 20MG SYG IV PRN (05:30)
[2022-08-14] MEDS: METRONIDAZOLE 500MG/100ML BAG 100 ML IVPB SCH ×3 (05:42→20:48)
[2022-08-14] MEDS: 0.9%NACL 1000ML 1,000 ML IV SCH ×5 (05:42→23:21)
[2022-08-14] MEDS: IPRATROPIUM/ALBUTEROL SULFATE 3 ML SOLUTION IH SCH ×5 (06:00→22:00)
[2022-08-14 06:05] LABS: APPEARANCE,URINE CLOUDY (CLEAR); BILIRUBIN,URINE NEGATIVE (NEGATIVE); COLOR,URINE LIGHT-YELLOW (YELLOW); GLUCOSE, URINE (UA) NEGATIVE (NEGATIVE); KETONES,URINE 5 mg/dL (NEGATIVE); LEUKOCYTE ESTERASE ,URINE 500 Leu/uL (NEGATIVE); NITRATE,URINE NEGATIVE (NEGATIVE); OCCULT BLOOD,URINE NEGATIVE (NEGATIVE); PH,URINE 5.5 (5.0-8.0); PROTEIN,URINE 10 mg/dL (NEGATIVE); UROBILINOGEN,URINE 0.2 mg/dL (0.2-1.0)
[2022-08-14] MEDS ORDERED: IPRATROPIUM 0.5 MG/2.5 ML INH IH ONE ×5 (06:10→22:15)
[2022-08-14] MEDS ORDERED: ALBUTEROL 0.083% 2.5 MG/3 ML INH IH ONE ×5 (06:10→22:15)
[2022-08-14 06:14] LABS: BACTERIA,URINE MANY /HPF (None Seen); MUCUS,URINE RARE LPF (None Seen); WBC,URINE TNTC /HPF (0-1)
[2022-08-14] MEDS: INSULIN HUMULIN R 100 UNIT/ML 3ML SQ SCH ×4 (07:38→20:49)
[2022-08-14] MEDS: PANTOPRAZOLE 40 MG/VIAL IVP SCH (08:35)
[2022-08-14] MEDS: MIDODRINE HCL 5 MG TABLET PO SCH ×3 (09:23→20:47)
[2022-08-14 10:17] LABS: AMPHET/METH SCREEN,URINE NEGATIVE (NEGATIVE); BARBITURATE SCREEN, URINE NEGATIVE (NEGATIVE); BENZODIAZEPINES SCREEN,URINE NEGATIVE (NEGATIVE); CANNABINOID SCREEN,URINE NEGATIVE (NEGATIVE); COCAINE SCREEN,URINE NEGATIVE (NEGATIVE); OPIATE SCREEN,URINE POSITIVE (NEGATIVE); PHENCYCLIDINE SCREEN,URINE NEGATIVE (NEGATIVE)
[2022-08-14] MEDS: ZOSYN 3.375GM +NS 50ML IVPB SCH ×2 (11:30→23:16)
[2022-08-14] MEDS ORDERED: 0.9%NACL 1000ML 1,000 ML IV ONE (12:15)
[2022-08-14] MEDS ORDERED: 0.9%NACL 1000ML 1,000 ML IV SCH (13:00)
[2022-08-14 13:14] LABS: CREATININE,URINE RANDOM 39 mg/dL (30-135); SODIUM,URINE RANDOM 27 mmol/l (40-220)
[2022-08-14 16:24] LABS: INR 1.03 (0.85-1.15); PROTHROMBIN TIME 11.2 SEC (9.6-11.6)
[2022-08-14 16:25] LABS: PARTIAL THROMBOPLASTIN TIME 32.8 SEC (26.3-35.5)
[2022-08-15] VITALS (67 sets, daily range): BP systolic 78–135; BP diastolic 35–90
[2022-08-15] MEDS: 0.9%NACL 10ML VIAL IV SCH ×4 (00:30→23:02)
[2022-08-15] MEDS: IPRATROPIUM/ALBUTEROL SULFATE 3 ML SOLUTION IH SCH ×2 (02:00→06:00)
[2022-08-15] MEDS ORDERED: IPRATROPIUM 0.5 MG/2.5 ML INH IH ONE ×2 (02:13→06:15)
[2022-08-15] MEDS ORDERED: ALBUTEROL 0.083% 2.5 MG/3 ML INH IH ONE ×2 (02:13→06:15)
[2022-08-15] MEDS: NOREPINEPHRIN 4MG/NS 250ML 250 ML IV PRN ×2 (04:01→13:18)
[2022-08-15 04:10] LABS: BASOPHILS % (AUTO) 0.2 % (0.0-5.0); EOSINOPHILS % (AUTO) 0.3 % (0.0-8.0); HEMATOCRIT 29.6 % (42-54); LYMPHOCYTES % (AUTO) 6.5 % (21.0-51.0); MEAN CORPUSCULAR HGB CONC 33.4 g/dL (32.0-36.0); MEAN CORPUSCULAR VOLUME 95.8 fL (79-99); MONOCYTES % (AUTO) 8.6 % (3.0-13.0); NEUTROPHILS % (AUTO) 83.7 % (40.0-77.0); PLATELET COUNT (AUTO) 310 K/uL (130-400); RED BLOOD CELL COUNT(AUTO) 3.09 MIL/uL (4.50-6.20); RED CELL DISTRIBUTION WIDTH 14.4 % (11.0-15.5); WHITE BLOOD COUNT (AUTO) 11.7 K/uL (4.8-10.8)
[2022-08-15 05:12] LABS: CREATININE 2.5 mg/dL (0.5-1.5); MAGNESIUM 1.3 mg/dL (1.80-2.40); PHOSPHORUS 4.4 mg/dL (2.5-4.9); THYROID STIMULATING HORMONE 0.6 uIU/mL (0.36-3.74)
[2022-08-15 05:18] LABS: POTASSIUM 2.3 mmol/L (3.5-5.1)
[2022-08-15] MEDS: METRONIDAZOLE 500MG/100ML BAG 100 ML IVPB SCH ×3 (05:27→21:17)
[2022-08-15] MEDS: INSULIN HUMULIN R 100 UNIT/ML 3ML SQ SCH ×4 (05:35→21:00)
[2022-08-15] MEDS: MAGNESIUM 2GM PREMIX 50ML 50 ML IV SCH ×2 (05:48→05:52)
[2022-08-15] MEDS ORDERED: KCL 20 MEQ ERTAB PO ONE (06:00)
[2022-08-15] MEDS ORDERED: IPRATROPIUM/ALBUTEROL SULFATE 3 ML SOLUTION IH PRN (08:00)
[2022-08-15] MEDS ORDERED: 0.9% NACL 500ML IV.SOLN 500 ML IV SCH (09:00)
[2022-08-15] MEDS: MIDODRINE HCL 5 MG TABLET PO SCH ×3 (10:38→21:17)
[2022-08-15] MEDS: PANTOPRAZOLE 40 MG/VIAL IVP SCH (10:38)
[2022-08-15] MEDS: 0.9%NACL 1000ML 1,000 ML IV SCH ×3 (12:08→22:38)
[2022-08-15] MEDS: ZOSYN 3.375GM +NS 50ML IVPB SCH ×2 (12:11→22:38)
[2022-08-15] MEDS ORDERED: SODIUM BICARB 50MEQ 50ML VIAL IV SCH (14:00)
[2022-08-15] MEDS: SODIUM BICARBONATE 650 MG TAB PO SCH ×2 (16:25→21:17)
[2022-08-16] VITALS (77 sets, daily range): BP systolic 70–156; BP diastolic 33–77
[2022-08-16] MEDS: 0.9%NACL 1000ML 1,000 ML IV SCH ×5 (02:37→20:55)
[2022-08-16 04:13] LABS: BASOPHILS % (AUTO) 0.1 % (0.0-5.0); EOSINOPHILS % (AUTO) 0.4 % (0.0-8.0); HEMATOCRIT 29.3 % (42-54); LYMPHOCYTES % (AUTO) 7.2 % (21.0-51.0); MEAN CORPUSCULAR HEMOGLOBIN 32.1 pg (27.0-33.0); MEAN CORPUSCULAR HGB CONC 33.8 g/dL (32.0-36.0); MEAN CORPUSCULAR VOLUME 95.1 fL (79-99); MONOCYTES % (AUTO) 6.9 % (3.0-13.0); NEUTROPHILS % (AUTO) 84.7 % (40.0-77.0); PLATELET COUNT (AUTO) 286 K/uL (130-400); RED BLOOD CELL COUNT(AUTO) 3.08 MIL/uL (4.50-6.20); RED CELL DISTRIBUTION WIDTH 14.6 % (11.0-15.5); WHITE BLOOD COUNT (AUTO) 10.7 K/uL (4.8-10.8)
[2022-08-16 04:25] LABS: CREATININE 1.7 mg/dL (0.5-1.5); PHOSPHORUS 2.3 mg/dL (2.5-4.9)
[2022-08-16 04:38] LABS: POTASSIUM 2.2 mmol/L (3.5-5.1)
[2022-08-16 04:43] LABS: % IRON SATURATION 19.3 % (30-44)
[2022-08-16] MEDS ORDERED: POTASSIUM CHLORIDE 10% ELIXIR 20 MEQ/15 ML UDCUP PO PRN (05:00)
[2022-08-16] MEDS ORDERED: POTASSIUM CHLORIDE 10MEQ/100ML 100 ML IV PRN (05:00)
[2022-08-16] MEDS ORDERED: LIDOCAINE HCL-MPF 1% 2ML VIAL IV PRN ×2 (05:00→12:00)
[2022-08-16] MEDS ORDERED: KCL 20 MEQ ERTAB PO PRN (05:00)
[2022-08-16] MEDS: METRONIDAZOLE 500MG/100ML BAG 100 ML IVPB SCH (05:50)
[2022-08-16] MEDS: INSULIN HUMULIN R 100 UNIT/ML 3ML SQ SCH ×4 (07:30→19:25)
[2022-08-16] MEDS: 0.9%NACL 10ML VIAL IV SCH ×2 (08:12→17:59)
[2022-08-16] MEDS: MIDODRINE HCL 5 MG TABLET PO SCH ×3 (08:13→20:55)
[2022-08-16] MEDS: PANTOPRAZOLE 40 MG/VIAL IVP SCH (08:13)
[2022-08-16] MEDS: SODIUM BICARBONATE 650 MG TAB PO SCH ×3 (08:13→20:55)
[2022-08-16] MEDS: MAGNESIUM 2GM PREMIX 50ML 50 ML IV SCH ×2 (08:14→15:53)
[2022-08-16] MEDS: POTASSIUM CHLORIDE 20MEQ/100ML 100 ML IV PRN ×3 (12:29→18:22)
[2022-08-16] MEDS: ZOSYN 3.375GM +NS 50ML IVPB SCH (12:29)
[2022-08-16] MEDS ORDERED: LINEZOLID 600 MG/ISO-OSM 300 ML IV ONE (17:58)
[2022-08-16] MEDS: LINEZOLID 600 MG/ISO-OSM 300 ML IV SCH (17:58)
[2022-08-16] MEDS ORDERED: POTASSIUM CHLORIDE 20MEQ/100ML 100 ML IV ONE ×2 (18:22→19:33)
[2022-08-16] MEDS ORDERED: SODIUM BICARBONATE 650 MG TAB ONE (19:40)
[2022-08-16] MEDS ORDERED: ACETAMINOPHEN 325 MG TAB ONE (19:41)
[2022-08-16] MEDS ORDERED: IRON SUCROSE COMPLEX 300 MG in 0.9% NACL 250ML 250 ML IV SCH (21:00)
[2022-08-17] VITALS (46 sets, daily range): BP systolic 82–120; BP diastolic 37–76
[2022-08-17] MEDS ORDERED: ACETAMINOPHEN 325 MG TAB ONE (01:32)
[2022-08-17] MEDS: ACETAMINOPHEN 325 MG TAB PO PRN ×2 (01:43→11:35)
[2022-08-17] MEDS ORDERED: LINEZOLID 600 MG/ISO-OSM 300 ML IV ONE (02:01)
[2022-08-17] MEDS: LINEZOLID 600 MG/ISO-OSM 300 ML IV SCH ×2 (02:06→12:56)
[2022-08-17] MEDS: 0.9%NACL 10ML VIAL IV SCH ×3 (02:07→16:08)
[2022-08-17 04:20] LABS: BASOPHILS % (AUTO) 0.1 % (0.0-5.0); EOSINOPHILS % (AUTO) 1.2 % (0.0-8.0); HEMATOCRIT 27.8 % (42-54); MEAN CORPUSCULAR HEMOGLOBIN 32.5 pg (27.0-33.0); MEAN CORPUSCULAR HGB CONC 33.5 g/dL (32.0-36.0); MEAN CORPUSCULAR VOLUME 97.2 fL (79-99); MONOCYTES % (AUTO) 7.1 % (3.0-13.0); NEUTROPHILS % (AUTO) 78.7 % (40.0-77.0); PLATELET COUNT (AUTO) 233 K/uL (130-400); RED BLOOD CELL COUNT(AUTO) 2.86 MIL/uL (4.50-6.20); RED CELL DISTRIBUTION WIDTH 14.5 % (11.0-15.5); WHITE BLOOD COUNT (AUTO) 10.9 K/uL (4.8-10.8)
[2022-08-17 04:51] LABS: CREATININE 1.5 mg/dL (0.5-1.5)
[2022-08-17 05:09] LABS: POTASSIUM 2.8 mmol/L (3.5-5.1)
[2022-08-17] MEDS ORDERED: POTASSIUM CHLORIDE 20MEQ/100ML 100 ML IV ONE (05:16)
[2022-08-17] MEDS: POTASSIUM CHLORIDE 20MEQ/100ML 100 ML IV PRN ×2 (05:19→07:51)
[2022-08-17] MEDS: INSULIN HUMULIN R 100 UNIT/ML 3ML SQ SCH ×4 (07:30→20:40)
[2022-08-17] MEDS: 0.9%NACL 1000ML 1,000 ML IV SCH ×4 (07:51→17:14)
[2022-08-17] MEDS: PANTOPRAZOLE 40 MG/VIAL IVP SCH (07:57)
[2022-08-17] MEDS: SODIUM BICARBONATE 650 MG TAB PO SCH ×3 (09:38→20:37)
[2022-08-17] MEDS: MIDODRINE HCL 5 MG TABLET PO SCH ×3 (09:38→20:37)
[2022-08-17] MEDS: ONDANSETRON 4MG INJ IVP PRN (10:13)
[2022-08-17] MEDS ORDERED: KCL 20 MEQ ERTAB PO ONE (10:30)
[2022-08-17] MEDS ORDERED: POTASSIUM CHLORIDE 10% ELIXIR 20 MEQ/15 ML UDCUP PO PRN (10:30)
[2022-08-17] MEDS ORDERED: LIDOCAINE HCL-MPF 1% 2ML VIAL IV PRN (10:30)
[2022-08-17 12:04] LABS: ABG BASE EXCESS -7.8 mmol/L (-2.0-3.0); ABG HCO3 14.6 mmol/L (21.0-28.0); ABG PCO2 24 mmHg (35-48)
[2022-08-17] MEDS: MORPHINE 2 MG SYG IVP PRN ×2 (12:56→20:45)
[2022-08-17] MEDS: MEROPENEM 1 GM VIAL IVP SCH (14:25)
[2022-08-17] MEDS: CHOLESTYRAMINE PACKET 4 GM PACKET PO SCH (14:30)
[2022-08-17] MEDS: KCL 20 MEQ ERTAB PO PRN ×2 (16:12→16:13)
[2022-08-17] MEDS: HYDROCODONE/ACETAMINOPHEN 5/325 MG TAB PO PRN (18:13)
[2022-08-17] MEDS: BALSAM PERU/CASTOR OIL 60 GM TUBE TP SCH (21:49)
[2022-08-17] MEDS ORDERED: POTASSIUM PHOS 15 mMOL+NS250ML 250 ML IV PRN (23:30)
[2022-08-18] VITALS (17 sets, daily range): BP systolic 81–116; BP diastolic 36–72
[2022-08-18] MEDS: LINEZOLID 600 MG/ISO-OSM 300 ML IV SCH ×2 (01:04→12:37)
[2022-08-18] MEDS: 0.9%NACL 1000ML 1,000 ML IV SCH ×3 (01:05→23:32)
[2022-08-18] MEDS: 0.9%NACL 10ML VIAL IV SCH ×4 (01:40→21:06)
[2022-08-18 03:40] LABS: HEMATOCRIT 30.6 % (42-54); MEAN CORPUSCULAR HEMOGLOBIN 32.1 pg (27.0-33.0); MEAN CORPUSCULAR HGB CONC 32.4 g/dL (32.0-36.0); MEAN CORPUSCULAR VOLUME 99.4 fL (79-99); RED BLOOD CELL COUNT(AUTO) 3.08 MIL/uL (4.50-6.20); RED CELL DISTRIBUTION WIDTH 14.7 % (11.0-15.5); WHITE BLOOD COUNT (AUTO) 9.7 K/uL (4.8-10.8)
[2022-08-18 03:55] LABS: ALBUMIN 1.5 g/dL (3.5-5.0); CREATININE 1.4 mg/dL (0.5-1.5); MAGNESIUM 1.3 mg/dL (1.80-2.40); PHOSPHORUS 1.6 mg/dL (2.5-4.9); POTASSIUM 3.8 mmol/L (3.5-5.1); TOTAL PROTEIN, SERUM 4.6 g/dL (6.0-8.3)
[2022-08-18] MEDS: MEROPENEM 1 GM VIAL IVP SCH ×2 (04:05→16:06)
[2022-08-18] MEDS: ONDANSETRON 4MG INJ IVP PRN ×2 (04:08→18:53)
[2022-08-18] MEDS: MAGNESIUM 2GM PREMIX 50ML 50 ML IV SCH (06:00)
[2022-08-18] MEDS: INSULIN HUMULIN R 100 UNIT/ML 3ML SQ SCH ×4 (07:30→20:39)
[2022-08-18] MEDS: MIDODRINE HCL 5 MG TABLET PO SCH ×3 (08:00→21:05)
[2022-08-18] MEDS: SODIUM BICARBONATE 650 MG TAB PO SCH ×3 (08:00→21:04)
[2022-08-18] MEDS: PANTOPRAZOLE 40 MG/VIAL IVP SCH (08:00)
[2022-08-18] MEDS: CHOLESTYRAMINE PACKET 4 GM PACKET PO SCH (08:01)
[2022-08-18] MEDS: BALSAM PERU/CASTOR OIL 60 GM TUBE TP SCH ×3 (08:06→21:08)
[2022-08-18] MEDS: HYDROCODONE/ACETAMINOPHEN 5/325 MG TAB PO PRN ×2 (08:15→18:53)
[2022-08-19] MEDS: LINEZOLID 600 MG/ISO-OSM 300 ML IV SCH ×2 (02:29→16:09)
[2022-08-19 04:00] VITALS: BP 102/53
[2022-08-19 05:01] LABS: HEMATOCRIT 29.9 % (42-54); MEAN CORPUSCULAR HEMOGLOBIN 32.2 pg (27.0-33.0); MEAN CORPUSCULAR HGB CONC 32.8 g/dL (32.0-36.0); MEAN CORPUSCULAR VOLUME 98.4 fL (79-99); RED BLOOD CELL COUNT(AUTO) 3.04 MIL/uL (4.50-6.20); RED CELL DISTRIBUTION WIDTH 14.6 % (11.0-15.5)
[2022-08-19] MEDS: MEROPENEM 1 GM VIAL IVP SCH ×2 (05:09→16:09)
[2022-08-19 05:19] LABS: ALBUMIN 1.5 g/dL (3.5-5.0); CREATININE 1.4 mg/dL (0.5-1.5); MAGNESIUM 1.2 mg/dL (1.80-2.40); POTASSIUM 3.8 mmol/L (3.5-5.1); TOTAL PROTEIN, SERUM 4.5 g/dL (6.0-8.3)
[2022-08-19] MEDS: MAGNESIUM 2GM PREMIX 50ML 50 ML IV SCH (05:49)
[2022-08-19] MEDS: ONDANSETRON 4MG INJ IVP PRN (06:06)
[2022-08-19] MEDS: INSULIN HUMULIN R 100 UNIT/ML 3ML SQ SCH ×2 (06:10→11:25)
[2022-08-19 08:00] VITALS: BP 106/68
[2022-08-19] MEDS: 0.9%NACL 10ML VIAL IV SCH ×2 (08:10→16:30)
[2022-08-19] MEDS: 0.9%NACL 1000ML 1,000 ML IV SCH ×3 (08:10→21:16)
[2022-08-19] MEDS: MIDODRINE HCL 5 MG TABLET PO SCH ×3 (08:32→21:16)
[2022-08-19] MEDS: PANTOPRAZOLE 40 MG/VIAL IVP SCH (08:32)
[2022-08-19] MEDS: CHOLESTYRAMINE PACKET 4 GM PACKET PO SCH (08:32)
[2022-08-19] MEDS: BALSAM PERU/CASTOR OIL 60 GM TUBE TP SCH ×4 (08:33→22:00)
[2022-08-19] MEDS ORDERED: NEUTRA-PHOS PACKET 1 EACH PO SCH (09:30)
[2022-08-19] MEDS: HYDROCODONE/ACETAMINOPHEN 5/325 MG TAB PO PRN (10:24)
[2022-08-19 12:00] VITALS: BP 98/41
[2022-08-19 16:00] VITALS: BP 112/67
[2022-08-19] MEDS: ACETAMINOPHEN 325 MG TAB PO PRN (16:08)
[2022-08-19] MEDS: SODIUM BICARBONATE 650 MG TAB PO SCH ×2 (16:08→21:17)
[2022-08-19] MEDS: MAG/AL/SIMETH 30 ML+LIDO2% VISC+DIPHEN 75MG 30ML PO SCH ×3 (16:09)
[2022-08-19] MEDS ORDERED: PHARMACY COMMUNICATION MISC SCH (16:30)
[2022-08-19 20:00] VITALS: BP 106/65
[2022-08-20] VITALS (7 sets, daily range): BP systolic 91–133; BP diastolic 52–76
[2022-08-20] MEDS: LINEZOLID 600 MG/ISO-OSM 300 ML IV SCH ×2 (01:37→13:22)
[2022-08-20] MEDS: MEROPENEM 1 GM VIAL IVP SCH ×2 (03:41→15:17)
[2022-08-20] MEDS: 0.9%NACL 10ML VIAL IV SCH ×4 (03:42→20:47)
[2022-08-20 05:31] LABS: HEMATOCRIT 30.1 % (42-54); MEAN CORPUSCULAR HEMOGLOBIN 32.1 pg (27.0-33.0); MEAN CORPUSCULAR HGB CONC 32.6 g/dL (32.0-36.0); MEAN CORPUSCULAR VOLUME 98.7 fL (79-99); RED BLOOD CELL COUNT(AUTO) 3.05 MIL/uL (4.50-6.20); RED CELL DISTRIBUTION WIDTH 14.5 % (11.0-15.5)
[2022-08-20] MEDS: SODIUM BICARBONATE 650 MG TAB PO SCH ×3 (05:42→20:46)
[2022-08-20] MEDS: MIDODRINE HCL 5 MG TABLET PO SCH ×3 (05:42→20:42)
[2022-08-20] MEDS: BALSAM PERU/CASTOR OIL 60 GM TUBE TP SCH ×3 (05:43→20:48)
[2022-08-20 05:49] LABS: ALBUMIN 1.5 g/dL (3.5-5.0); CREATININE 1.3 mg/dL (0.5-1.5); MAGNESIUM 1.2 mg/dL (1.80-2.40); PHOSPHORUS 1.7 mg/dL (2.5-4.9); POTASSIUM 3.7 mmol/L (3.5-5.1); TOTAL PROTEIN, SERUM 4.6 g/dL (6.0-8.3)
[2022-08-20] MEDS: PANTOPRAZOLE 40 MG/VIAL IVP SCH (09:55)
[2022-08-20] MEDS: CHOLESTYRAMINE PACKET 4 GM PACKET PO SCH (09:55)
[2022-08-20] MEDS ORDERED: NEUTRA-PHOS PACKET 1 EACH PO SCH (10:00)
[2022-08-20] MEDS: 0.9%NACL 1000ML 1,000 ML IV SCH ×2 (10:05→20:43)
[2022-08-20] MEDS ORDERED: COMPOUND PO MISCELLANEOUS 1 EACH MISC MISC PRN (11:00)
[2022-08-20] MEDS: MAG/AL/SIMETH 30 ML+LIDO2% VISC+DIPHEN 75MG 30ML PO SCH ×9 (11:00→17:23)
[2022-08-20] MEDS ORDERED: DICYCLOMINE 20MG (10MG/ML) AMP IM SCH (19:58)
[2022-08-20] MEDS ORDERED: KETOROLAC 30MG VIAL (30MG/ML) IVP SCH (20:00)
[2022-08-20] MEDS ORDERED: ZOLPIDEM TARTRATE 5 MG TAB PO SCH (21:00)
[2022-08-21] MEDS: LINEZOLID 600 MG/ISO-OSM 300 ML IV SCH (01:35)
[2022-08-21] MEDS: MEROPENEM 1 GM VIAL IVP SCH (03:39)
[2022-08-21 04:00] VITALS: BP 137/75
[2022-08-21] MEDS: MIDODRINE HCL 5 MG TABLET PO SCH (05:29)
[2022-08-21] MEDS: BALSAM PERU/CASTOR OIL 60 GM TUBE TP SCH (05:29)
[2022-08-21] MEDS: SODIUM BICARBONATE 650 MG TAB PO SCH (05:29)
[2022-08-21 06:02] LABS: HEMATOCRIT 28.8 % (42-54); MEAN CORPUSCULAR HEMOGLOBIN 31.7 pg (27.0-33.0); MEAN CORPUSCULAR HGB CONC 31.9 g/dL (32.0-36.0); MEAN CORPUSCULAR VOLUME 99.3 fL (79-99); RED BLOOD CELL COUNT(AUTO) 2.9 MIL/uL (4.50-6.20); RED CELL DISTRIBUTION WIDTH 14.3 % (11.0-15.5); WHITE BLOOD COUNT (AUTO) 8.7 K/uL (4.8-10.8)
[2022-08-21 06:06] LABS: ALBUMIN 1.5 g/dL (3.5-5.0); CREATININE 1.2 mg/dL (0.5-1.5); PHOSPHORUS 1.7 mg/dL (2.5-4.9); POTASSIUM 3.7 mmol/L (3.5-5.1); TOTAL PROTEIN, SERUM 4.4 g/dL (6.0-8.3)
[2022-08-21 08:00] VITALS: BP 107/65
[2022-08-21] MEDS: PANTOPRAZOLE 40 MG/VIAL IVP SCH (09:26)
[2022-08-21] MEDS: CHOLESTYRAMINE PACKET 4 GM PACKET PO SCH (09:26)
[2022-08-21] MEDS: MAG/AL/SIMETH 30 ML+LIDO2% VISC+DIPHEN 75MG 30ML PO SCH ×6 (09:27→12:15)
[2022-08-21] MEDS: 0.9%NACL 10ML VIAL IV SCH (09:27)
[2022-08-21 12:00] VITALS: BP 111/71
== END 2022-08-21 12:00 | DRG 871 ==
LOC: EDH 17:35 → EDHIP 21:18 → 3DH 22:41 → EDHIP 23:40 → 2BH 08-14 11:45 → 4BH 08-18 14:01
PROVIDERS: ADMIT Internal Medicine Infectious Disease; ATTEND Internal Medicine Infectious Disease
PROC: 02HV33Z Insertion of Infusion Device into Superior Vena Cava, Percutaneous Approach (ICD-10-PCS; principal; 2022-08-15)
DX: A41.9 Sepsis, unspecified organism (principal); K65.1 Peritoneal abscess; R65.21 Severe sepsis with septic shock; N17.9 Acute kidney failure, unspecified; N30.00 Acute cystitis without hematuria; N18.5 Chronic kidney disease, stage 5; I12.0 Hypertensive chronic kidney disease with stage 5 chronic kidney disease or end stage renal disease; E44.0 Moderate protein-calorie malnutrition; E87.1 Hypo-osmolality and hyponatremia; Z16.24 Resistance to multiple antibiotics; E86.0 Dehydration; R62.7 Adult failure to thrive; D50.9 Iron deficiency anemia, unspecified; K52.9 Noninfective gastroenteritis and colitis, unspecified; E11.22 Type 2 diabetes mellitus with diabetic chronic kidney disease; E66.9 Obesity, unspecified; E78.5 Hyperlipidemia, unspecified; E83.42 Hypomagnesemia; E87.6 Hypokalemia; F32.A Depression, unspecified; I25.10 Atherosclerotic heart disease of native coronary artery without angina pectoris; I95.89 Other hypotension; L98.429 Non-pressure chronic ulcer of back with unspecified severity; Z83.3 Family history of diabetes mellitus; Z91.199 Patient's noncompliance with other medical treatment and regimen due to unspecified reason; Z93.2 Ileostomy status; Z93.3 Colostomy status; Z95.1 Presence of aortocoronary bypass graft; Z68.27 Body mass index [BMI] 27.0-27.9, adult
CPT/HCPCS: 36415; 36600; 71045; 74176; 76705; 80048; 80053; 80305; 81001; 82010; 82570; 82803; 82948; 83036; 83540; 83550; 83605; 83690; 83735; 83880; 84100; 84132; 84145; 84300; 84443; 84484; 85025; 85027; 85610; 85730; 87040; 87046; 87070; 87076; 87077; 87088; 87186; 92610; 93005; 94640; 94664; 97039; C1751; C1894; C9113; G0378; J0500; J1756; J1815; J1885; J2020; J2185; J2405; J2543; J3475; J3480; J3490; J7030; J7040; J7050

== ENCOUNTER 2022-08-29 22:53 | Inpatient (IN) | payer MEDICARE ==
[~2022-08-29] VITALS: Ht 170.2 cm; Wt 67.5 kg
[~2022-08-29 22:53] MED LIST changes: -IBUP-2076 PO
[2022-08-30] VITALS (23 sets, daily range): BP systolic 83–119; BP diastolic 50–73
[2022-08-30] MEDS ORDERED: DEXTROSE 50%-WATER 50 ML DISP.SYRIN IV PRN (03:00)
[2022-08-30] MEDS ORDERED: GLUCAGON 1MG KIT 1 MG ML IM PRN (03:00)
[2022-08-30] MEDS: DEXTROSE 5 % AND 0.9 % NACL 1,000 ML IV SCH ×2 (05:47→23:23)
[2022-08-30] MEDS: MIDODRINE HCL 5 MG TABLET PO SCH ×3 (06:40→23:21)
[2022-08-30] MEDS: MAG/ALUM/SIMETH 30 ML UDCUP PO SCH ×3 (07:30→16:26)
[2022-08-30] MEDS: INSULIN HUMULIN R 100 UNIT/ML 3ML SQ SCH ×4 (07:30→21:00)
[2022-08-30] MEDS: ARGIN/GLUT/CAHMB/COLLAG/MV-MIN 1 EACH POWD.PACK PO SCH ×2 (08:00→16:26)
[2022-08-30 08:56] LABS: HEMATOCRIT 22.4 % (42-54); MEAN CORPUSCULAR HEMOGLOBIN 30.6 pg (27.0-33.0); MEAN CORPUSCULAR VOLUME 92.6 fL (79-99); PLATELET COUNT (AUTO) 68 K/uL (130-400); RED BLOOD CELL COUNT(AUTO) 2.42 MIL/uL (4.50-6.20); RED CELL DISTRIBUTION WIDTH 14.7 % (11.0-15.5); WHITE BLOOD COUNT (AUTO) 5.9 K/uL (4.8-10.8)
[2022-08-30] MEDS: Vitamin B Complex/Vit C/Folic Acid PO SCH (09:00)
[2022-08-30] MEDS: FERROUS SULFATE 325 MG TABLET.DR PO SCH (09:00)
[2022-08-30] MEDS: TAMSULOSIN HCL 0.4 MG CAP.ER.24H PO SCH (09:00)
[2022-08-30] MEDS: FISH OIL 1000 MG/CAP PO SCH (09:00)
[2022-08-30] MEDS: SODIUM BICARBONATE 650 MG TAB PO SCH ×4 (09:00→20:50)
[2022-08-30 09:05] LABS: CREATININE 0.8 mg/dL (0.5-1.5); POTASSIUM 3.8 mmol/L (3.5-5.1)
[2022-08-30 09:08] LABS: INR 0.97 (0.85-1.15); PROTHROMBIN TIME 10.6 SEC (9.6-11.6)
[2022-08-30 09:10] LABS: PARTIAL THROMBOPLASTIN TIME 25.6 SEC (26.3-35.5)
[2022-08-30] MEDS: MEROPENEM 1 GM VIAL IVP SCH ×2 (09:24→20:51)
[2022-08-30] MEDS: PANTOPRAZOLE 40 MG/VIAL IVP SCH ×2 (09:24→20:51)
[2022-08-30] MEDS ORDERED: LINEZOLID 600 MG/ISO-OSM 300 ML IV SCH (09:30)
[2022-08-30 09:37] LABS: LYMPHOCYTES % (MANUAL) 13 % (22-44); MAN.DIFF COMMENT-IMPRESSION MANUAL DIFFERENTIAL; MONOCYTES % (MANUAL) 3 % (2-9); PLATELET MORPHOLOGY COMMENT DECREASED; REACTIVE LYMPHOCYTES 1 % (0-0); SEGMENTED NEUTROPHILS % 83 % (40-70)
[2022-08-30] MEDS: MAGNESIUM 2GM PREMIX 50ML 50 ML IV PRN (09:58)
[2022-08-30] MEDS ORDERED: HYDROMORPHONE 0.5 MG SYG (0.5MG/0.5ML) IVP SCH (11:00)
[2022-08-30 13:13] LABS: HEMATOCRIT 22.9 % (42-54)
[2022-08-30 13:17] LABS: CREATININE 0.8 mg/dL (0.5-1.5); MAGNESIUM 2.1 mg/dL (1.80-2.40)
[2022-08-30] MEDS ORDERED: MAGNESIUM 4GM PREMIX 100ML 100 ML IV SCH (16:00)
[2022-08-30 17:06] LABS: HEMATOCRIT 21.8 % (42-54)
[2022-08-30] MEDS: HYDROMORPHONE 0.5 MG SYG (0.5MG/0.5ML) IVP PRN (20:52)
[2022-08-30 21:21] LABS: HEMATOCRIT 22.2 % (42-54)
[2022-08-30] MEDS: ZOLPIDEM TARTRATE 5 MG TAB PO SCH (23:21)
[2022-08-31] VITALS (21 sets, daily range): BP systolic 90–116; BP diastolic 56–75
[2022-08-31 05:32] LABS: MAGNESIUM 1.4 mg/dL (1.80-2.40); POTASSIUM 3.8 mmol/L (3.5-5.1)
[2022-08-31] MEDS: DEXTROSE 5 % AND 0.9 % NACL 1,000 ML IV SCH ×2 (05:40→16:53)
[2022-08-31] MEDS: MIDODRINE HCL 5 MG TABLET PO SCH ×3 (06:00→22:38)
[2022-08-31 06:19] LABS: MEAN CORPUSCULAR HEMOGLOBIN 30.3 pg (27.0-33.0); MEAN CORPUSCULAR HGB CONC 32.6 g/dL (32.0-36.0); PLATELET COUNT (AUTO) 76 K/uL (130-400); RED BLOOD CELL COUNT(AUTO) 1.85 MIL/uL (4.50-6.20); RED CELL DISTRIBUTION WIDTH 14.6 % (11.0-15.5); WHITE BLOOD COUNT (AUTO) 3.7 K/uL (4.8-10.8)
[2022-08-31 06:44] LABS: HEMATOCRIT 17.2 % (42-54)
[2022-08-31] MEDS ORDERED: PHARMACY COMMUNICATION MISC SCH ×2 (07:00→20:30)
[2022-08-31] MEDS: MAG/ALUM/SIMETH 30 ML UDCUP PO SCH ×3 (07:30→16:53)
[2022-08-31] MEDS: INSULIN HUMULIN R 100 UNIT/ML 3ML SQ SCH ×4 (07:30→21:00)
[2022-08-31] MEDS: ARGIN/GLUT/CAHMB/COLLAG/MV-MIN 1 EACH POWD.PACK PO SCH ×3 (08:00→18:20)
[2022-08-31] MEDS: PANTOPRAZOLE 40 MG/VIAL IVP SCH ×2 (08:10→21:10)
[2022-08-31] MEDS: HYDROMORPHONE 0.5 MG SYG (0.5MG/0.5ML) IVP PRN ×2 (08:10→16:24)
[2022-08-31] MEDS: MEROPENEM 1 GM VIAL IVP SCH ×2 (08:10→21:10)
[2022-08-31] MEDS: MAGNESIUM 2GM PREMIX 50ML 50 ML IV PRN ×2 (08:11→10:47)
[2022-08-31 08:21] LABS: HEMATOCRIT 16.3 % (42-54)
[2022-08-31] MEDS: Vitamin B Complex/Vit C/Folic Acid PO SCH (08:46)
[2022-08-31] MEDS: FERROUS SULFATE 325 MG TABLET.DR PO SCH (08:46)
[2022-08-31] MEDS: TAMSULOSIN HCL 0.4 MG CAP.ER.24H PO SCH (08:46)
[2022-08-31] MEDS: FISH OIL 1000 MG/CAP PO SCH (08:46)
[2022-08-31] MEDS: SODIUM BICARBONATE 650 MG TAB PO SCH ×4 (08:46→21:11)
[2022-08-31] MEDS: MAGNESIUM 4GM PREMIX 100ML 100 ML IV SCH ×2 (10:00→17:55)
[2022-08-31] MEDS ORDERED: CALCIUM GLUC 1GM/10ML VIAL ONE ×2 (10:45→14:25)
[2022-08-31] MEDS: CALCIUM GLUC 1GM 1 GM in 0.9%NACL 100ML 100 ML IV SCH ×2 (10:46→14:28)
[2022-08-31] MEDS ORDERED: KETAMINE 50MG/ML SYRINGE 50 MG/ML DISP.SYRIN ONE (11:42)
[2022-08-31] MEDS ORDERED: PROPOFOL 10 MG/ML 20ML VIAL IV ONE (11:45)
[2022-08-31] MEDS: FUROSEMIDE 40MG VIAL IV ONE ×2 (12:00→16:57)
[2022-08-31] MEDS ORDERED: FUROSEMIDE 40MG VIAL ONE (16:56)
[2022-08-31 17:31] LABS: HEMATOCRIT 24.8 % (42-54)
[2022-08-31] MEDS: BALSAM PERU/CASTOR OIL 60 GM TUBE TP SCH (21:00)
[2022-08-31] MEDS: TEMAZEPAM 15 MG CAPSULE PO SCH (21:00)
[2022-08-31] MEDS: BENZOCAINE/MENTH/CETYLPYRD CL 1 EACH LOZENGE MM PRN (22:37)
[2022-08-31] MEDS: ZOLPIDEM TARTRATE 5 MG TAB PO SCH (22:37)
[2022-09-01] VITALS (7 sets, daily range): BP systolic 103–118; BP diastolic 61–73
[2022-09-01 00:42] LABS: HEMATOCRIT 21.5 % (42-54)
[2022-09-01] MEDS: HYDROMORPHONE 0.5 MG SYG (0.5MG/0.5ML) IVP PRN ×4 (02:23→22:14)
[2022-09-01] MEDS: MAG/ALUM/SIMETH 30 ML UDCUP PO SCH ×3 (06:22→17:18)
[2022-09-01] MEDS: INSULIN HUMULIN R 100 UNIT/ML 3ML SQ SCH ×4 (06:22→21:00)
[2022-09-01] MEDS: MIDODRINE HCL 5 MG TABLET PO SCH ×3 (06:22→22:13)
[2022-09-01 06:55] LABS: BASOPHILS % (AUTO) 0.9 % (0.0-5.0); EOSINOPHILS % (AUTO) 1.7 % (0.0-8.0); LYMPHOCYTES % (AUTO) 31.3 % (21.0-51.0); MEAN CORPUSCULAR HEMOGLOBIN 31.3 pg (27.0-33.0); MEAN CORPUSCULAR HGB CONC 34.4 g/dL (32.0-36.0); MEAN CORPUSCULAR VOLUME 90.9 fL (79-99); MONOCYTES % (AUTO) 10.9 % (3.0-13.0); PLATELET COUNT (AUTO) 83 K/uL (130-400); RED BLOOD CELL COUNT(AUTO) 1.98 MIL/uL (4.50-6.20); RED CELL DISTRIBUTION WIDTH 14.9 % (11.0-15.5); WHITE BLOOD COUNT (AUTO) 4.7 K/uL (4.8-10.8)
[2022-09-01 07:22] LABS: ALBUMIN 1.6 g/dL (3.5-5.0); CREATININE 0.9 mg/dL (0.5-1.5); MAGNESIUM 2.2 mg/dL (1.80-2.40); PHOSPHORUS 1.7 mg/dL (2.5-4.9); POTASSIUM 4.1 mmol/L (3.5-5.1); TOTAL PROTEIN, SERUM 3.9 g/dL (6.0-8.3)
[2022-09-01] MEDS ORDERED: PHENOL 177 ML BOTTLE PO PRN (07:30)
[2022-09-01] MEDS: ARGIN/GLUT/CAHMB/COLLAG/MV-MIN 1 EACH POWD.PACK PO SCH ×2 (08:00→17:00)
[2022-09-01] MEDS: DEXTROSE 5 % AND 0.9 % NACL 1,000 ML IV SCH ×2 (08:20→21:40)
[2022-09-01] MEDS: SERTRALINE HCL 50 MG TABLET PO SCH ×3 (09:00→09:14)
[2022-09-01] MEDS: BALSAM PERU/CASTOR OIL 60 GM TUBE TP SCH ×2 (09:00→21:45)
[2022-09-01] MEDS: Vitamin B Complex/Vit C/Folic Acid PO SCH (09:10)
[2022-09-01] MEDS: FERROUS SULFATE 325 MG TABLET.DR PO SCH (09:10)
[2022-09-01] MEDS: SODIUM BICARBONATE 650 MG TAB PO SCH ×4 (09:11→21:44)
[2022-09-01] MEDS: BENZOCAINE/MENTH/CETYLPYRD CL 1 EACH LOZENGE MM PRN ×2 (09:11→09:23)
[2022-09-01] MEDS: TAMSULOSIN HCL 0.4 MG CAP.ER.24H PO SCH (09:11)
[2022-09-01] MEDS: MEROPENEM 1 GM VIAL IVP SCH ×2 (09:12→21:42)
[2022-09-01] MEDS: PANTOPRAZOLE 40 MG/VIAL IVP SCH ×2 (09:12→21:43)
[2022-09-01] MEDS: FISH OIL 1000 MG/CAP PO SCH (09:12)
[2022-09-01 10:06] LABS: INR 0.95 (0.85-1.15); PROTHROMBIN TIME 10.4 SEC (9.6-11.6)
[2022-09-01 10:07] LABS: PARTIAL THROMBOPLASTIN TIME 24.8 SEC (26.3-35.5)
[2022-09-01 10:50] LABS: FIBRINOGEN 280 mg/dL (180-350)
[2022-09-01] MEDS ORDERED: FUROSEMIDE 40MG VIAL IV SCH (11:00)
[2022-09-01 11:16] LABS: D-DIMER 697 ng/mL (0-500)
[2022-09-01] MEDS: NEUTRA-PHOS PACKET 1 EACH PO SCH ×2 (13:43→21:46)
[2022-09-01] MEDS ORDERED: CALCIUM GLUC 1GM 2 GM in 0.9%NACL 100ML 100 ML IV SCH (17:00)
[2022-09-01 19:22] LABS: HEMATOCRIT 26.3 % (42-54)
[2022-09-01] MEDS ORDERED: BALSAM PERU/CASTOR OIL 60 GM TUBE TP SCH (21:00)
[2022-09-01] MEDS: TEMAZEPAM 15 MG CAPSULE PO SCH ×2 (21:00→21:42)
[2022-09-01] MEDS: ZOLPIDEM TARTRATE 5 MG TAB PO SCH (21:43)
[2022-09-02] VITALS (7 sets, daily range): BP systolic 85–127; BP diastolic 50–65
[2022-09-02 01:10] LABS: HEMATOCRIT 21.3 % (42-54)
[2022-09-02 03:55] LABS: BASOPHILS % (AUTO) 0.7 % (0.0-5.0); EOSINOPHILS % (AUTO) 3.3 % (0.0-8.0); HEMATOCRIT 21.6 % (42-54); LYMPHOCYTES % (AUTO) 26.8 % (21.0-51.0); MEAN CORPUSCULAR HEMOGLOBIN 29.8 pg (27.0-33.0); MEAN CORPUSCULAR HGB CONC 34.7 g/dL (32.0-36.0); MEAN CORPUSCULAR VOLUME 85.7 fL (79-99); MONOCYTES % (AUTO) 13.8 % (3.0-13.0); NEUTROPHILS % (AUTO) 55.2 % (40.0-77.0); PLATELET COUNT (AUTO) 113 K/uL (130-400); RED BLOOD CELL COUNT(AUTO) 2.52 MIL/uL (4.50-6.20); RED CELL DISTRIBUTION WIDTH 16.6 % (11.0-15.5); WHITE BLOOD COUNT (AUTO) 4.3 K/uL (4.8-10.8)
[2022-09-02 04:05] LABS: INR 0.94 (0.85-1.15); PROTHROMBIN TIME 10.3 SEC (9.6-11.6)
[2022-09-02 04:22] LABS: ALBUMIN 1.8 g/dL (3.5-5.0); MAGNESIUM 1.4 mg/dL (1.80-2.40); PHOSPHORUS 1.4 mg/dL (2.5-4.9); POTASSIUM 3.7 mmol/L (3.5-5.1); TOTAL PROTEIN, SERUM 4.4 g/dL (6.0-8.3)
[2022-09-02] MEDS: MIDODRINE HCL 5 MG TABLET PO SCH ×3 (05:11→21:19)
[2022-09-02] MEDS: INSULIN HUMULIN R 100 UNIT/ML 3ML SQ SCH ×4 (07:30→21:00)
[2022-09-02] MEDS: ARGIN/GLUT/CAHMB/COLLAG/MV-MIN 1 EACH POWD.PACK PO SCH ×2 (08:00→17:00)
[2022-09-02] MEDS: MAG/ALUM/SIMETH 30 ML UDCUP PO SCH ×3 (08:13→16:06)
[2022-09-02] MEDS: MEROPENEM 1 GM VIAL IVP SCH ×2 (08:13→21:17)
[2022-09-02] MEDS: MAGNESIUM 2GM PREMIX 50ML 50 ML IV PRN ×2 (08:14→16:07)
[2022-09-02] MEDS: Vitamin B Complex/Vit C/Folic Acid PO SCH (08:14)
[2022-09-02] MEDS: NEUTRA-PHOS PACKET 1 EACH PO SCH ×3 (08:14→21:18)
[2022-09-02] MEDS: PANTOPRAZOLE 40 MG/VIAL IVP SCH ×2 (08:14→21:17)
[2022-09-02] MEDS: TAMSULOSIN HCL 0.4 MG CAP.ER.24H PO SCH (08:15)
[2022-09-02] MEDS: FERROUS SULFATE 325 MG TABLET.DR PO SCH (08:15)
[2022-09-02] MEDS: SODIUM BICARBONATE 650 MG TAB PO SCH ×4 (08:15→21:19)
[2022-09-02] MEDS: FISH OIL 1000 MG/CAP PO SCH (08:15)
[2022-09-02] MEDS: SERTRALINE HCL 50 MG TABLET PO SCH (08:16)
[2022-09-02] MEDS: HYDROMORPHONE 0.5 MG SYG (0.5MG/0.5ML) IVP PRN ×3 (08:16→22:52)
[2022-09-02] MEDS: BALSAM PERU/CASTOR OIL 60 GM TUBE TP SCH ×2 (08:17→21:20)
[2022-09-02 10:37] LABS: HEMATOCRIT 27.7 % (42-54)
[2022-09-02 10:48] LABS: ALBUMIN 1.9 g/dL (3.5-5.0); POTASSIUM 3.8 mmol/L (3.5-5.1); TOTAL PROTEIN, SERUM 4.6 g/dL (6.0-8.3)
[2022-09-02] MEDS: DEXTROSE 5 % AND 0.9 % NACL 1,000 ML IV SCH (11:47)
[2022-09-02 16:28] LABS: HEMATOCRIT 26.3 % (42-54)
[2022-09-02] MEDS: ZOLPIDEM TARTRATE 5 MG TAB PO SCH (22:29)
[2022-09-02] MEDS: TEMAZEPAM 15 MG CAPSULE PO SCH (22:33)
[2022-09-02 22:52] LABS: HEMATOCRIT 24.7 % (42-54)
[2022-09-03] VITALS (8 sets, daily range): BP systolic 88–156; BP diastolic 48–81
[2022-09-03 04:00] LABS: BASOPHILS % (AUTO) 0.4 % (0.0-5.0); HEMATOCRIT 25.3 % (42-54); LYMPHOCYTES % (AUTO) 16.2 % (21.0-51.0); MEAN CORPUSCULAR HEMOGLOBIN 29.9 pg (27.0-33.0); MEAN CORPUSCULAR HGB CONC 34.8 g/dL (32.0-36.0); MEAN CORPUSCULAR VOLUME 86.1 fL (79-99); MONOCYTES % (AUTO) 13.9 % (3.0-13.0); NEUTROPHILS % (AUTO) 65.9 % (40.0-77.0); NUCLEATED RED BLOOD CELLS 0.4 % (0.0-0.19); PLATELET COUNT (AUTO) 131 K/uL (130-400); RED BLOOD CELL COUNT(AUTO) 2.94 MIL/uL (4.50-6.20); WHITE BLOOD COUNT (AUTO) 4.7 K/uL (4.8-10.8)
[2022-09-03 04:20] LABS: INR 0.94 (0.85-1.15); PROTHROMBIN TIME 10.3 SEC (9.6-11.6)
[2022-09-03 04:21] LABS: PARTIAL THROMBOPLASTIN TIME 25.4 SEC (26.3-35.5)
[2022-09-03 04:48] LABS: CREATININE 0.9 mg/dL (0.5-1.5); MAGNESIUM 1.8 mg/dL (1.80-2.40); PHOSPHORUS 0.7 mg/dL (2.5-4.9); POTASSIUM 4.3 mmol/L (3.5-5.1); TOTAL PROTEIN, SERUM 4.7 g/dL (6.0-8.3)
[2022-09-03] MEDS: MIDODRINE HCL 5 MG TABLET PO SCH ×3 (06:31→20:53)
[2022-09-03] MEDS: INSULIN HUMULIN R 100 UNIT/ML 3ML SQ SCH ×4 (07:30→20:31)
[2022-09-03] MEDS: ARGIN/GLUT/CAHMB/COLLAG/MV-MIN 1 EACH POWD.PACK PO SCH ×2 (08:00→17:00)
[2022-09-03] MEDS: MEROPENEM 1 GM VIAL IVP SCH ×2 (08:14→20:52)
[2022-09-03] MEDS: MAG/ALUM/SIMETH 30 ML UDCUP PO SCH ×3 (08:14→17:19)
[2022-09-03] MEDS: Vitamin B Complex/Vit C/Folic Acid PO SCH (08:15)
[2022-09-03] MEDS: SODIUM BICARBONATE 650 MG TAB PO SCH ×4 (08:15→20:52)
[2022-09-03] MEDS: TAMSULOSIN HCL 0.4 MG CAP.ER.24H PO SCH (08:15)
[2022-09-03] MEDS: NEUTRA-PHOS PACKET 1 EACH PO SCH ×4 (08:15→21:00)
[2022-09-03] MEDS: PANTOPRAZOLE 40 MG/VIAL IVP SCH ×2 (08:15→20:52)
[2022-09-03] MEDS: FISH OIL 1000 MG/CAP PO SCH (08:15)
[2022-09-03] MEDS: SERTRALINE HCL 50 MG TABLET PO SCH (08:15)
[2022-09-03] MEDS: FERROUS SULFATE 325 MG TABLET.DR PO SCH (08:15)
[2022-09-03] MEDS: BALSAM PERU/CASTOR OIL 60 GM TUBE TP SCH ×2 (08:18→20:55)
[2022-09-03] MEDS: HYDROMORPHONE 0.5 MG SYG (0.5MG/0.5ML) IVP PRN ×2 (08:40→17:31)
[2022-09-03] MEDS: TEMAZEPAM 15 MG CAPSULE PO SCH (20:52)
[2022-09-03] MEDS: ZOLPIDEM TARTRATE 5 MG TAB PO SCH (20:52)
[2022-09-04 04:04] LABS: BASOPHILS % (AUTO) 0.7 % (0.0-5.0); EOSINOPHILS % (AUTO) 3.6 % (0.0-8.0); HEMATOCRIT 27.8 % (42-54); LYMPHOCYTES % (AUTO) 19.8 % (21.0-51.0); MEAN CORPUSCULAR HEMOGLOBIN 29.7 pg (27.0-33.0); MEAN CORPUSCULAR HGB CONC 33.1 g/dL (32.0-36.0); MEAN CORPUSCULAR VOLUME 89.7 fL (79-99); MONOCYTES % (AUTO) 14.8 % (3.0-13.0); NEUTROPHILS % (AUTO) 60.6 % (40.0-77.0); NUCLEATED RED BLOOD CELLS 0.5 % (0.0-0.19); PLATELET COUNT (AUTO) 163 K/uL (130-400); RED CELL DISTRIBUTION WIDTH 16.1 % (11.0-15.5); WHITE BLOOD COUNT (AUTO) 5.8 K/uL (4.8-10.8)
[2022-09-04 04:13] LABS: INR 0.93 (0.85-1.15); PROTHROMBIN TIME 10.2 SEC (9.6-11.6)
[2022-09-04 04:15] LABS: PARTIAL THROMBOPLASTIN TIME 26.8 SEC (26.3-35.5)
[2022-09-04 04:25] LABS: MAGNESIUM 1.4 mg/dL (1.80-2.40); PHOSPHORUS 1.1 mg/dL (2.5-4.9); POTASSIUM 4.6 mmol/L (3.5-5.1)
[2022-09-04 04:54] VITALS: BP 99/57
[2022-09-04] MEDS: INSULIN HUMULIN R 100 UNIT/ML 3ML SQ SCH ×4 (05:31→20:55)
[2022-09-04] MEDS: MIDODRINE HCL 5 MG TABLET PO SCH ×3 (05:44→21:43)
[2022-09-04] MEDS: MAGNESIUM 2GM PREMIX 50ML 50 ML IV PRN (05:45)
[2022-09-04] MEDS: HYDROMORPHONE 0.5 MG SYG (0.5MG/0.5ML) IVP PRN ×2 (06:40→16:00)
[2022-09-04 07:52] VITALS: BP 111/63
[2022-09-04] MEDS: ARGIN/GLUT/CAHMB/COLLAG/MV-MIN 1 EACH POWD.PACK PO SCH ×2 (08:00→16:41)
[2022-09-04] MEDS: TAMSULOSIN HCL 0.4 MG CAP.ER.24H PO SCH (08:47)
[2022-09-04] MEDS: MAG/ALUM/SIMETH 30 ML UDCUP PO SCH ×3 (08:47→16:41)
[2022-09-04] MEDS: PANTOPRAZOLE 40 MG/VIAL IVP SCH ×2 (08:47→21:43)
[2022-09-04] MEDS: Vitamin B Complex/Vit C/Folic Acid PO SCH (08:48)
[2022-09-04] MEDS: NEUTRA-PHOS PACKET 1 EACH PO SCH ×3 (08:48→21:44)
[2022-09-04] MEDS: SERTRALINE HCL 50 MG TABLET PO SCH (08:48)
[2022-09-04] MEDS: SODIUM BICARBONATE 650 MG TAB PO SCH ×4 (08:48→21:43)
[2022-09-04] MEDS: FERROUS SULFATE 325 MG TABLET.DR PO SCH (08:48)
[2022-09-04] MEDS: FISH OIL 1000 MG/CAP PO SCH (08:48)
[2022-09-04] MEDS: BALSAM PERU/CASTOR OIL 60 GM TUBE TP SCH ×2 (08:49→21:44)
[2022-09-04] MEDS: MEROPENEM 1 GM VIAL IVP SCH ×2 (08:49→21:42)
[2022-09-04 11:39] VITALS: BP 95/56
[2022-09-04 16:17] VITALS: BP 111/67
[2022-09-04 20:00] VITALS: BP 93/55
[2022-09-04] MEDS: ZOLPIDEM TARTRATE 5 MG TAB PO SCH (21:43)
[2022-09-04] MEDS: TEMAZEPAM 15 MG CAPSULE PO SCH (21:43)
[2022-09-04 23:00] VITALS: BP 85/44
[2022-09-05] MEDS ORDERED: HYDROMORPHONE 0.5 MG SYG (0.5MG/0.5ML) IVP ONE (03:30)
[2022-09-05 04:21] VITALS: BP 95/67
[2022-09-05 04:36] LABS: BASOPHILS % (AUTO) 0.5 % (0.0-5.0); EOSINOPHILS % (AUTO) 3.4 % (0.0-8.0); HEMATOCRIT 29.5 % (42-54); MEAN CORPUSCULAR HEMOGLOBIN 29.8 pg (27.0-33.0); MEAN CORPUSCULAR HGB CONC 33.2 g/dL (32.0-36.0); MEAN CORPUSCULAR VOLUME 89.7 fL (79-99); MONOCYTES % (AUTO) 13.5 % (3.0-13.0); PLATELET COUNT (AUTO) 247 K/uL (130-400); RED BLOOD CELL COUNT(AUTO) 3.29 MIL/uL (4.50-6.20); RED CELL DISTRIBUTION WIDTH 16.2 % (11.0-15.5); WHITE BLOOD COUNT (AUTO) 6.2 K/uL (4.8-10.8)
[2022-09-05 04:44] LABS: INR 0.93 (0.85-1.15); PROTHROMBIN TIME 10.2 SEC (9.6-11.6)
[2022-09-05 04:46] LABS: PARTIAL THROMBOPLASTIN TIME 26.5 SEC (26.3-35.5)
[2022-09-05 04:54] LABS: ALBUMIN 2.1 g/dL (3.5-5.0); CREATININE 0.9 mg/dL (0.5-1.5); PHOSPHORUS 1.6 mg/dL (2.5-4.9); POTASSIUM 4.7 mmol/L (3.5-5.1); TOTAL PROTEIN, SERUM 5.5 g/dL (6.0-8.3)
[2022-09-05] MEDS: MIDODRINE HCL 5 MG TABLET PO SCH ×3 (05:38→19:45)
[2022-09-05] MEDS: INSULIN HUMULIN R 100 UNIT/ML 3ML SQ SCH ×4 (05:42→20:18)
[2022-09-05 08:30] VITALS: BP 97/65
[2022-09-05] MEDS: TAMSULOSIN HCL 0.4 MG CAP.ER.24H PO SCH (09:16)
[2022-09-05] MEDS: MEROPENEM 1 GM VIAL IVP SCH ×2 (09:17→19:44)
[2022-09-05] MEDS: FERROUS SULFATE 325 MG TABLET.DR PO SCH (09:17)
[2022-09-05] MEDS: FISH OIL 1000 MG/CAP PO SCH (09:17)
[2022-09-05] MEDS: Vitamin B Complex/Vit C/Folic Acid PO SCH (09:19)
[2022-09-05] MEDS: SODIUM BICARBONATE 650 MG TAB PO SCH ×4 (09:19→19:45)
[2022-09-05] MEDS: SERTRALINE HCL 50 MG TABLET PO SCH (09:20)
[2022-09-05] MEDS: NEUTRA-PHOS PACKET 1 EACH PO SCH ×4 (09:23→20:18)
[2022-09-05] MEDS: PANTOPRAZOLE 40 MG/VIAL IVP SCH ×2 (09:23→19:44)
[2022-09-05] MEDS: MAG/ALUM/SIMETH 30 ML UDCUP PO SCH ×3 (09:26→16:46)
[2022-09-05] MEDS: ARGIN/GLUT/CAHMB/COLLAG/MV-MIN 1 EACH POWD.PACK PO SCH ×2 (09:26→17:00)
[2022-09-05] MEDS: BALSAM PERU/CASTOR OIL 60 GM TUBE TP SCH ×2 (09:27→19:45)
[2022-09-05 12:37] VITALS: BP 141/64
[2022-09-05] MEDS: HYDROMORPHONE 0.5 MG SYG (0.5MG/0.5ML) IVP PRN (13:17)
[2022-09-05 16:00] VITALS: BP 103/69
[2022-09-05] MEDS: ZOLPIDEM TARTRATE 5 MG TAB PO SCH (19:45)
[2022-09-05] MEDS: TEMAZEPAM 15 MG CAPSULE PO SCH (19:45)
[2022-09-05 20:11] VITALS: BP 100/60
[2022-09-06] VITALS (7 sets, daily range): BP systolic 93–100; BP diastolic 47–72
[2022-09-06] MEDS: MIDODRINE HCL 5 MG TABLET PO SCH ×3 (05:16→23:02)
[2022-09-06] MEDS: HYDROMORPHONE 0.5 MG SYG (0.5MG/0.5ML) IVP PRN ×2 (05:16→20:48)
[2022-09-06] MEDS: INSULIN HUMULIN R 100 UNIT/ML 3ML SQ SCH ×4 (05:40→20:37)
[2022-09-06 05:53] LABS: MEAN CORPUSCULAR HEMOGLOBIN 29.3 pg (27.0-33.0); MEAN CORPUSCULAR HGB CONC 32.2 g/dL (32.0-36.0); MEAN CORPUSCULAR VOLUME 90.9 fL (79-99); RED BLOOD CELL COUNT(AUTO) 3.52 MIL/uL (4.50-6.20); RED CELL DISTRIBUTION WIDTH 17.1 % (11.0-15.5); WHITE BLOOD COUNT (AUTO) 6.1 K/uL (4.8-10.8)
[2022-09-06 06:13] LABS: MAGNESIUM 1.4 mg/dL (1.80-2.40); PHOSPHORUS 3.1 mg/dL (2.5-4.9); POTASSIUM 4.6 mmol/L (3.5-5.1)
[2022-09-06] MEDS: ARGIN/GLUT/CAHMB/COLLAG/MV-MIN 1 EACH POWD.PACK PO SCH ×2 (08:00→17:00)
[2022-09-06] MEDS: BALSAM PERU/CASTOR OIL 60 GM TUBE TP SCH ×3 (09:00→23:03)
[2022-09-06] MEDS: NEUTRA-PHOS PACKET 1 EACH PO SCH ×4 (09:00→20:52)
[2022-09-06] MEDS: MEROPENEM 1 GM VIAL IVP SCH ×2 (09:54→20:51)
[2022-09-06] MEDS: MAG/ALUM/SIMETH 30 ML UDCUP PO SCH ×3 (09:56→17:41)
[2022-09-06] MEDS: SODIUM BICARBONATE 650 MG TAB PO SCH ×4 (09:57→20:50)
[2022-09-06] MEDS: FERROUS SULFATE 325 MG TABLET.DR PO SCH (09:57)
[2022-09-06] MEDS: SERTRALINE HCL 50 MG TABLET PO SCH (09:57)
[2022-09-06] MEDS: Vitamin B Complex/Vit C/Folic Acid PO SCH (09:58)
[2022-09-06] MEDS: FISH OIL 1000 MG/CAP PO SCH (09:58)
[2022-09-06] MEDS: TAMSULOSIN HCL 0.4 MG CAP.ER.24H PO SCH (09:58)
[2022-09-06] MEDS: PANTOPRAZOLE 40 MG/VIAL IVP SCH ×2 (09:58→20:51)
[2022-09-06] MEDS: MAGNESIUM 2GM PREMIX 50ML 50 ML IV PRN ×2 (14:46→17:44)
[2022-09-06] MEDS ORDERED: ACETAMINOPHEN 500 MG TABLET PO PRN (15:00)
[2022-09-06] MEDS: TRAMADOL HCL 50 MG TABLET PO PRN (17:40)
[2022-09-06] MEDS: ZOLPIDEM TARTRATE 5 MG TAB PO SCH ×2 (20:51→21:00)
[2022-09-06] MEDS: TEMAZEPAM 15 MG CAPSULE PO SCH ×2 (20:51→21:04)
[2022-09-07 04:18] VITALS: BP 98/61
[2022-09-07] MEDS: MIDODRINE HCL 5 MG TABLET PO SCH ×3 (05:41→20:47)
[2022-09-07] MEDS: INSULIN HUMULIN R 100 UNIT/ML 3ML SQ SCH ×4 (05:46→20:25)
[2022-09-07 05:59] LABS: BASOPHILS % (AUTO) 0.8 % (0.0-5.0); EOSINOPHILS % (AUTO) 3.7 % (0.0-8.0); HEMATOCRIT 29.3 % (42-54); LYMPHOCYTES % (AUTO) 22.6 % (21.0-51.0); MEAN CORPUSCULAR HEMOGLOBIN 29.4 pg (27.0-33.0); MEAN CORPUSCULAR HGB CONC 32.1 g/dL (32.0-36.0); MEAN CORPUSCULAR VOLUME 91.6 fL (79-99); MONOCYTES % (AUTO) 16.3 % (3.0-13.0); PLATELET COUNT (AUTO) 306 K/uL (130-400); RED CELL DISTRIBUTION WIDTH 16.8 % (11.0-15.5); WHITE BLOOD COUNT (AUTO) 4.9 K/uL (4.8-10.8)
[2022-09-07 06:17] LABS: MAGNESIUM 2.1 mg/dL (1.80-2.40); POTASSIUM 4.9 mmol/L (3.5-5.1)
[2022-09-07] MEDS: MAG/ALUM/SIMETH 30 ML UDCUP PO SCH ×3 (06:35→17:29)
[2022-09-07 08:00] VITALS: BP 104/59
[2022-09-07] MEDS: ARGIN/GLUT/CAHMB/COLLAG/MV-MIN 1 EACH POWD.PACK PO SCH ×2 (08:00→17:00)
[2022-09-07] MEDS: PANTOPRAZOLE 40 MG/VIAL IVP SCH ×2 (09:21→20:47)
[2022-09-07] MEDS: FISH OIL 1000 MG/CAP PO SCH (09:25)
[2022-09-07] MEDS: TRAMADOL HCL 50 MG TABLET PO PRN ×2 (09:25→18:49)
[2022-09-07] MEDS: TAMSULOSIN HCL 0.4 MG CAP.ER.24H PO SCH (09:26)
[2022-09-07] MEDS: SERTRALINE HCL 50 MG TABLET PO SCH (09:26)
[2022-09-07] MEDS: SODIUM BICARBONATE 650 MG TAB PO SCH ×4 (09:27→20:48)
[2022-09-07] MEDS: FERROUS SULFATE 325 MG TABLET.DR PO SCH (09:27)
[2022-09-07] MEDS: MEROPENEM 1 GM VIAL IVP SCH ×2 (09:28→20:47)
[2022-09-07] MEDS: NEUTRA-PHOS PACKET 1 EACH PO SCH ×2 (09:29→20:47)
[2022-09-07] MEDS: Vitamin B Complex/Vit C/Folic Acid PO SCH (09:33)
[2022-09-07] MEDS: BALSAM PERU/CASTOR OIL 60 GM TUBE TP SCH ×2 (09:42→20:48)
[2022-09-07 11:58] VITALS: BP 102/58
[2022-09-07 16:00] VITALS: BP 90/57
[2022-09-07 19:00] VITALS: BP 112/63
[2022-09-07] MEDS: TEMAZEPAM 15 MG CAPSULE PO SCH (20:47)
[2022-09-07] MEDS: ZOLPIDEM TARTRATE 5 MG TAB PO SCH (20:48)
[2022-09-08] VITALS: BP 102/65
[2022-09-08 04:00] VITALS: BP 93/53
[2022-09-08] MEDS: INSULIN HUMULIN R 100 UNIT/ML 3ML SQ SCH ×3 (05:08→16:30)
[2022-09-08] MEDS: MIDODRINE HCL 5 MG TABLET PO SCH ×2 (05:40→15:32)
[2022-09-08] MEDS: MAG/ALUM/SIMETH 30 ML UDCUP PO SCH ×3 (05:41→17:02)
[2022-09-08 06:00] LABS: HEMATOCRIT 31.1 % (42-54); MEAN CORPUSCULAR HEMOGLOBIN 29.2 pg (27.0-33.0); MEAN CORPUSCULAR HGB CONC 31.5 g/dL (32.0-36.0); MEAN CORPUSCULAR VOLUME 92.6 fL (79-99); RED BLOOD CELL COUNT(AUTO) 3.36 MIL/uL (4.50-6.20); RED CELL DISTRIBUTION WIDTH 16.9 % (11.0-15.5); WHITE BLOOD COUNT (AUTO) 5.3 K/uL (4.8-10.8)
[2022-09-08 06:09] LABS: MAGNESIUM 1.4 mg/dL (1.80-2.40); POTASSIUM 4.8 mmol/L (3.5-5.1)
[2022-09-08] MEDS: MAGNESIUM 2GM PREMIX 50ML 50 ML IV PRN (06:50)
[2022-09-08 07:42] VITALS: BP 110/69
[2022-09-08] MEDS: ARGIN/GLUT/CAHMB/COLLAG/MV-MIN 1 EACH POWD.PACK PO SCH ×2 (08:00→17:00)
[2022-09-08] MEDS: PANTOPRAZOLE 40 MG/VIAL IVP SCH (08:34)
[2022-09-08] MEDS: MEROPENEM 1 GM VIAL IVP SCH (08:34)
[2022-09-08] MEDS: SODIUM BICARBONATE 650 MG TAB PO SCH ×3 (08:35→17:03)
[2022-09-08] MEDS: FISH OIL 1000 MG/CAP PO SCH (08:35)
[2022-09-08] MEDS: SERTRALINE HCL 50 MG TABLET PO SCH (08:36)
[2022-09-08] MEDS: NEUTRA-PHOS PACKET 1 EACH PO SCH (08:36)
[2022-09-08] MEDS: Vitamin B Complex/Vit C/Folic Acid PO SCH (08:37)
[2022-09-08] MEDS: TAMSULOSIN HCL 0.4 MG CAP.ER.24H PO SCH (08:37)
[2022-09-08] MEDS: FERROUS SULFATE 325 MG TABLET.DR PO SCH (08:37)
[2022-09-08] MEDS: BALSAM PERU/CASTOR OIL 60 GM TUBE TP SCH (08:47)
[2022-09-08] MEDS: HYDROMORPHONE 0.5 MG SYG (0.5MG/0.5ML) IVP PRN (08:47)
[2022-09-08 11:32] VITALS: BP 100/65
[2022-09-08 16:26] VITALS: BP 113/72
[2022-09-08] MEDS ORDERED: MAGNESIUM OXIDE 400 MG TABLET PO SCH (21:00)
== END 2022-09-08 18:10 | disposition home or self-care (01) | DRG 871 ==
LOC: 2CH 08-30 02:30 → 2DH 08-30 09:57 → 2AH 09-01 22:40 → 3DH 09-05 15:14
PROVIDERS: ADMIT Internal Medicine Infectious Disease; ATTEND Internal Medicine Infectious Disease
PROC: 0DB68ZX Excision of Stomach, Via Natural or Artificial Opening Endoscopic, Diagnostic (ICD-10-PCS; principal; 2022-08-31)
PROC: 30233N1 Transfusion of Nonautologous Red Blood Cells into Peripheral Vein, Percutaneous Approach (ICD-10-PCS; 2022-08-31)
PROC: 30233R1 Transfusion of Nonautologous Platelets into Peripheral Vein, Percutaneous Approach (ICD-10-PCS; 2022-09-01)
PROC: 30233K1 Transfusion of Nonautologous Frozen Plasma into Peripheral Vein, Percutaneous Approach (ICD-10-PCS; 2022-09-02)
DX: A41.9 Sepsis, unspecified organism (principal); K21.01 Gastro-esophageal reflux disease with esophagitis, with bleeding; K26.4 Chronic or unspecified duodenal ulcer with hemorrhage; K65.1 Peritoneal abscess; E44.0 Moderate protein-calorie malnutrition; K56.609 Unspecified intestinal obstruction, unspecified as to partial versus complete obstruction; N17.9 Acute kidney failure, unspecified; D62 Acute posthemorrhagic anemia; Z20.822 Contact with and (suspected) exposure to COVID-19; E83.42 Hypomagnesemia; D50.9 Iron deficiency anemia, unspecified; E86.9 Volume depletion, unspecified; E11.22 Type 2 diabetes mellitus with diabetic chronic kidney disease; D69.6 Thrombocytopenia, unspecified; N18.9 Chronic kidney disease, unspecified; E78.5 Hyperlipidemia, unspecified; E66.01 Morbid (severe) obesity due to excess calories; I25.10 Atherosclerotic heart disease of native coronary artery without angina pectoris; I12.9 Hypertensive chronic kidney disease with stage 1 through stage 4 chronic kidney disease, or unspecified chronic kidney disease; F32.A Depression, unspecified; K43.5 Parastomal hernia without obstruction or gangrene; R53.81 Other malaise; L89.152 Pressure ulcer of sacral region, stage 2; Z93.2 Ileostomy status; Z95.1 Presence of aortocoronary bypass graft; Z83.3 Family history of diabetes mellitus; Z90.49 Acquired absence of other specified parts of digestive tract; Z93.3 Colostomy status
CPT/HCPCS: 36415; 36430; 43239; 70490; 71045; 78278; 78290; 80048; 80053; 82948; 83735; 84100; 85007; 85014; 85018; 85025; 85027; 85378; 85384; 85610; 85730; 86850; 86900; 86901; 86923; 86927; 87426; 97039; A4606; A9512; C9113; G0378; J0610; J1170; J1940; J2020; J2185; J2704; J3475; J7030; P9016; P9017; P9034

== ENCOUNTER 2022-10-31 14:03 | Inpatient (IN) | payer OTHER, MEDICARE ==
[~2022-10-31] VITALS: Ht 170.2 cm; Wt 64.0 kg
[~2022-10-31 14:03] MED LIST changes: +ATOR40TA71 PO; -CLOP-31 PO; +CLOP75TA32 PO; +DICY20TA3 PO; -FERR-72 PO; +FERR-82 PO; -FISH1CAP27 PO; +FOLI0.8T2 PO; -FOLI1TAB85 PO; +LISI5TAB21 PO; +PANT40TA54 PO; -SERT-438 PO; -TEMA15CA PO
[2022-10-31] MEDS ORDERED: 0.9%NACL 1000ML 1,000 ML IV ONE ×2 (14:30→17:00)
[2022-10-31 14:39] LABS: BASOPHILS % (AUTO) 0.3 % (0.0-5.0); EOSINOPHILS % (AUTO) 0.1 % (0.0-8.0); HEMATOCRIT 44.2 % (42-54); MEAN CORPUSCULAR HEMOGLOBIN 31.4 pg (27.0-33.0); MEAN CORPUSCULAR HGB CONC 33.5 g/dL (32.0-36.0); MEAN CORPUSCULAR VOLUME 93.8 fL (79-99); MONOCYTES % (AUTO) 3.1 % (3.0-13.0); NEUTROPHILS % (AUTO) 90.6 % (40.0-77.0); PLATELET COUNT (AUTO) 498 K/uL (130-400); RED BLOOD CELL COUNT(AUTO) 4.71 MIL/uL (4.50-6.20); WHITE BLOOD COUNT (AUTO) 24.3 K/uL (4.8-10.8)
[2022-10-31 14:47] LABS: CREATININE 3.3 mg/dL (0.5-1.5); POTASSIUM 4.8 mmol/L (3.5-5.1)
[2022-10-31 14:57] LABS: ALBUMIN 3.4 g/dL (3.5-5.0); TOTAL PROTEIN, SERUM 9.4 g/dL (6.0-8.3)
[2022-10-31] MEDS ORDERED: ZOSYN 3.375GM +NS 50ML IVPB ONE (15:00)
[2022-10-31] MEDS ORDERED: ONDANSETRON 4MG INJ IVP ONE (17:30)
[2022-10-31] MEDS ORDERED: DEXTROSE 5 % AND 0.9 % NACL 1,000 ML IV SCH (17:30)
[2022-10-31] MEDS ORDERED: PROCHLORPERAZINE 10MG/2ML INJ IV ONE (17:30)
[2022-10-31] MEDS ORDERED: MORPHINE 2 MG SYG IVP ONE (17:30)
[2022-10-31] MEDS ORDERED: RENAL DOSE IV STA (17:40)
[2022-10-31] MEDS ORDERED: PHENYLEPHRINE HCL 10 MG in 0.9% NACL 250ML 250 ML IV PRN (18:00)
[2022-10-31] MEDS ORDERED: VANCOMYCIN PROTOCOL PER PHARMACY IV SCH (18:00)
[2022-10-31] MEDS ORDERED: VASOPRESSIN 40 UNITS in 0.9%NACL 50ML 40 ML IV PRN (18:00)
[2022-10-31] MEDS ORDERED: VANCOMYCIN 1G/250ML KIT 250 ML IV ONE (18:00)
[2022-10-31] MEDS ORDERED: LACTATED RINGERS 1000ML IV SCH (18:00)
[2022-10-31] MEDS: DEXTROSE 5 % AND 0.9 % NACL 1,000 ML IV SCH (21:36)
[2022-10-31] MEDS ORDERED: 0.9%NACL 50ML IV SCH (22:00)
[2022-10-31] MEDS: MORPHINE 2 MG SYG IVP PRN (22:05)
[2022-10-31] MEDS: ONDANSETRON 4MG INJ IVP PRN (22:05)
[2022-10-31] MEDS ORDERED: DEXTROSE 50%-WATER 50 ML DISP.SYRIN IV PRN (23:30)
[2022-10-31] MEDS ORDERED: GLUCAGON 1MG KIT 1 MG ML IM PRN (23:30)
[2022-10-31] MEDS ORDERED: PHENYLEPHRINE HCL 10 MG/ML 1ML VIAL IV ONE (23:50)
[2022-11-01 01:37] LABS: APPEARANCE,URINE TURBID (CLEAR); BILIRUBIN,URINE NEGATIVE (NEGATIVE); COLOR,URINE YELLOW (YELLOW); GLUCOSE, URINE (UA) NEGATIVE (NEGATIVE); KETONES,URINE NEGATIVE (NEGATIVE); LEUKOCYTE ESTERASE ,URINE 500 Leu/uL (NEGATIVE); NITRATE,URINE NEGATIVE (NEGATIVE); OCCULT BLOOD,URINE SMALL (NEGATIVE); PROTEIN,URINE 70 mg/dL (NEGATIVE); UROBILINOGEN,URINE 0.2 mg/dL (0.2-1.0)
[2022-11-01] MEDS: INSULIN HUMULIN R 100 UNIT/ML 3ML SQ SCH ×4 (01:40→17:34)
[2022-11-01 01:46] LABS: MUCUS,URINE RARE LPF (None Seen); RBC,URINE 26-50 /HPF (0-1); SQUAMOUS EPITHELIAL CELL,UR MOD /HPF (0-2); WBC,URINE TNTC /HPF (0-1); YEAST,URINE BUDDING FEW /HPF (None Seen)
[2022-11-01] MEDS ORDERED: MORPHINE 4 MG SYG ONE (03:23)
[2022-11-01] MEDS: ONDANSETRON 4MG INJ IVP PRN (03:24)
[2022-11-01] MEDS: ZOSYN 3.375GM +NS 50ML IVPB SCH ×2 (03:24→15:28)
[2022-11-01] MEDS: MORPHINE 2 MG SYG IVP PRN ×3 (03:25→20:55)
[2022-11-01 03:35] LABS: ABG BASE EXCESS -5.6 mmol/L (-2.0-3.0); ABG HCO3 18.2 mmol/L (21.0-28.0); ABG OXYGEN SATURATION 97.6 % (95.0-99.0); ABG PCO2 31 mmHg (35-48)
[2022-11-01 03:40] LABS: BASOPHILS % (AUTO) 0.3 % (0.0-5.0); MEAN CORPUSCULAR HEMOGLOBIN 31.1 pg (27.0-33.0); MEAN CORPUSCULAR HGB CONC 32.4 g/dL (32.0-36.0); MEAN CORPUSCULAR VOLUME 96.1 fL (79-99); MONOCYTES % (AUTO) 4.5 % (3.0-13.0); NEUTROPHILS % (AUTO) 90.4 % (40.0-77.0); PLATELET COUNT (AUTO) 520 K/uL (130-400); RED BLOOD CELL COUNT(AUTO) 4.37 MIL/uL (4.50-6.20)
[2022-11-01 03:49] LABS: CREATININE 3.9 mg/dL (0.5-1.5); MAGNESIUM 1.4 mg/dL (1.80-2.40); PHOSPHORUS 4.5 mg/dL (2.5-4.9); POTASSIUM 4.1 mmol/L (3.5-5.1)
[2022-11-01 03:51] LABS: WHITE BLOOD COUNT (AUTO) 30.5 K/uL (4.8-10.8)
[2022-11-01 06:11] LABS: LYMPHOCYTES % (MANUAL) 7 % (22-44); MAN.DIFF COMMENT-IMPRESSION MANUAL DIFFERENTIAL; PLATELET MORPHOLOGY COMMENT INCREASED; SEGMENTED NEUTROPHILS % 93 % (40-70)
[2022-11-01] MEDS: DEXTROSE 5 % AND 0.9 % NACL 1,000 ML IV SCH ×2 (08:19→20:51)
[2022-11-01] MEDS: PANTOPRAZOLE 40 MG/VIAL IVP SCH ×2 (08:27→20:51)
[2022-11-01] MEDS: MAGNESIUM 2GM PREMIX 50ML 50 ML IV PRN (13:51)
[2022-11-01] MEDS ORDERED: HONEY 1 APPL/ML TUBE TP SCH (17:30)
[2022-11-01] MEDS: MEROPENEM 1 GM VIAL IVPB SCH (19:02)
[2022-11-01] MEDS: LINEZOLID 600 MG/ISO-OSM 300 ML IV SCH (20:51)
[2022-11-02 00:21] VITALS: BP 92/54
[2022-11-02] MEDS ORDERED: ACET325T51 PO (02:34)
[2022-11-02] MEDS ORDERED: MAGN400T51 PO (02:34)
[2022-11-02] MEDS ORDERED: ALBU2.5V2 IH (02:34)
[2022-11-02] MEDS ORDERED: ONDA-104 PO (02:34)
[2022-11-02] MEDS ORDERED: INSU100V3 IJ (02:34)
[2022-11-02] MEDS ORDERED: INSU100V52 SQ (02:34)
[2022-11-02] MEDS ORDERED: HONE15GE TP (02:34)
[2022-11-02] MEDS ORDERED: ACET650S14 RC (02:34)
[2022-11-02] MEDS ORDERED: LACT10SO9 PO (02:34)
[2022-11-02 03:21] VITALS: BP 91/50
[2022-11-02] MEDS: MEROPENEM 1 GM VIAL IVPB SCH ×2 (05:05→16:31)
[2022-11-02] MEDS: INSULIN HUMULIN R 100 UNIT/ML 3ML SQ SCH ×4 (06:00→16:25)
[2022-11-02] MEDS: LINEZOLID 600 MG/ISO-OSM 300 ML IV SCH ×2 (06:08→17:27)
[2022-11-02 07:59] VITALS: BP 110/49
[2022-11-02 08:59] LABS: HEMATOCRIT 33.9 % (42-54); MEAN CORPUSCULAR HEMOGLOBIN 31.6 pg (27.0-33.0); MEAN CORPUSCULAR HGB CONC 32.2 g/dL (32.0-36.0); MEAN CORPUSCULAR VOLUME 98.3 fL (79-99); PLATELET COUNT (AUTO) 333 K/uL (130-400); RED BLOOD CELL COUNT(AUTO) 3.45 MIL/uL (4.50-6.20); RED CELL DISTRIBUTION WIDTH 16.8 % (11.0-15.5); WHITE BLOOD COUNT (AUTO) 13.2 K/uL (4.8-10.8)
[2022-11-02] MEDS: PANTOPRAZOLE 40 MG/VIAL IVP SCH ×2 (09:02→20:14)
[2022-11-02 09:25] LABS: ALBUMIN 2.1 g/dL (3.5-5.0); CREATININE 2.2 mg/dL (0.5-1.5); POTASSIUM 4.8 mmol/L (3.5-5.1); TOTAL PROTEIN, SERUM 6.4 g/dL (6.0-8.3)
[2022-11-02] MEDS: MORPHINE 2 MG SYG IVP PRN ×3 (09:32→20:14)
[2022-11-02 10:26] LABS: LYMPHOCYTES % (MANUAL) 6 % (22-44); MAN.DIFF COMMENT-IMPRESSION MANUAL DIFFERENTIAL; MONOCYTES % (MANUAL) 6 % (2-9); SEGMENTED NEUTROPHILS % 88 % (40-70)
[2022-11-02 10:27] LABS: PLATELET MORPHOLOGY COMMENT ADEQUATE
[2022-11-02] MEDS: MAGNESIUM 2GM PREMIX 50ML 50 ML IV PRN (10:35)
[2022-11-02 11:51] VITALS: BP 96/59
[2022-11-02] MEDS: BALSAM PERU/CASTOR OIL 60 GM TUBE TP SCH ×2 (14:31→20:14)
[2022-11-02] MEDS: DEXTROSE 5 % AND 0.9 % NACL 1,000 ML IV SCH (14:32)
[2022-11-02] MEDS ORDERED: PHENOL 177 ML BOTTLE PO PRN (16:00)
[2022-11-02 16:08] VITALS: BP 97/62
[2022-11-02] MEDS ORDERED: VANCOMYCIN 750MG VIAL IVPB SCH (18:00)
[2022-11-02 19:21] VITALS: BP 93/50
[2022-11-02] MEDS: HONEY 1 APPL/ML TUBE TP SCH (20:14)
[2022-11-03] VITALS (8 sets, daily range): BP systolic 86–112; BP diastolic 51–66
[2022-11-03] MEDS: MORPHINE 2 MG SYG IVP PRN ×4 (01:24→21:03)
[2022-11-03] MEDS: MEROPENEM 1 GM VIAL IVPB SCH ×2 (05:46→17:09)
[2022-11-03] MEDS: INSULIN HUMULIN R 100 UNIT/ML 3ML SQ SCH ×4 (06:00→17:07)
[2022-11-03] MEDS: LINEZOLID 600 MG/ISO-OSM 300 ML IV SCH ×2 (06:30→18:10)
[2022-11-03] MEDS: PANTOPRAZOLE 40 MG/VIAL IVP SCH ×2 (08:01→20:45)
[2022-11-03] MEDS: HONEY 1 APPL/ML TUBE TP SCH ×2 (08:02→20:46)
[2022-11-03] MEDS: BALSAM PERU/CASTOR OIL 60 GM TUBE TP SCH ×3 (08:03→20:46)
[2022-11-03] MEDS: DEXTROSE 5 % AND 0.9 % NACL 1,000 ML IV SCH ×2 (12:58)
[2022-11-03 13:00] LABS: HEMATOCRIT 29.8 % (42-54); MEAN CORPUSCULAR HEMOGLOBIN 30.9 pg (27.0-33.0); MEAN CORPUSCULAR HGB CONC 32.2 g/dL (32.0-36.0); MEAN CORPUSCULAR VOLUME 95.8 fL (79-99); PLATELET COUNT (AUTO) 376 K/uL (130-400); RED BLOOD CELL COUNT(AUTO) 3.11 MIL/uL (4.50-6.20); RED CELL DISTRIBUTION WIDTH 16.4 % (11.0-15.5); WHITE BLOOD COUNT (AUTO) 8.9 K/uL (4.8-10.8)
[2022-11-03 13:18] LABS: ALBUMIN 2.1 g/dL (3.5-5.0); CREATININE 1.4 mg/dL (0.5-1.5); MAGNESIUM 1.4 mg/dL (1.80-2.40); POTASSIUM 3.5 mmol/L (3.5-5.1); TOTAL PROTEIN, SERUM 5.7 g/dL (6.0-8.3)
[2022-11-03 13:23] LABS: BAND NEUTROPHILS % (MANUAL) 3 % (0-2); EOSINOPHILS % (MANUAL) 1 % (1-6); LYMPHOCYTES % (MANUAL) 10 % (22-44); MAN.DIFF COMMENT-IMPRESSION MANUAL DIFFERENTIAL; MONOCYTES % (MANUAL) 6 % (2-9); PLATELET MORPHOLOGY COMMENT ADEQUATE; SEGMENTED NEUTROPHILS % 80 % (40-70)
[2022-11-03] MEDS: MAGNESIUM 2GM PREMIX 50ML 50 ML IV PRN (13:29)
[2022-11-04 03:14] VITALS: BP 108/56
[2022-11-04] MEDS: INSULIN HUMULIN R 100 UNIT/ML 3ML SQ SCH ×5 (06:00→20:31)
[2022-11-04] MEDS: MORPHINE 2 MG SYG IVP PRN ×2 (06:01→20:31)
[2022-11-04] MEDS: MEROPENEM 1 GM VIAL IVPB SCH ×2 (06:01→17:35)
[2022-11-04] MEDS: LINEZOLID 600 MG/ISO-OSM 300 ML IV SCH ×2 (06:24→17:35)
[2022-11-04 07:12] VITALS: BP 106/67
[2022-11-04] MEDS: PANTOPRAZOLE 40 MG/VIAL IVP SCH ×2 (08:43→20:30)
[2022-11-04] MEDS: MAGNESIUM 2GM PREMIX 50ML 50 ML IV PRN (08:43)
[2022-11-04] MEDS: HONEY 1 APPL/ML TUBE TP SCH ×2 (08:44→20:33)
[2022-11-04] MEDS: BALSAM PERU/CASTOR OIL 60 GM TUBE TP SCH ×3 (08:45→20:33)
[2022-11-04] MEDS: DEXTROSE 5 % AND 0.9 % NACL 1,000 ML IV SCH (08:49)
[2022-11-04 11:00] VITALS: BP 101/61
[2022-11-04] MEDS: TRAMADOL HCL 50 MG TABLET PO PRN (14:48)
[2022-11-04 16:14] VITALS: BP 110/72
[2022-11-04 19:11] VITALS: BP 105/67
[2022-11-04] MEDS: PSYLLIUM SEED 1 EACH PACKET PO SCH (20:31)
[2022-11-04 22:54] VITALS: BP 107/63
[2022-11-05 03:41] VITALS: BP_SYST 108; BP_DIAS 43; BP_DIAS 53
[2022-11-05] MEDS: MEROPENEM 1 GM VIAL IVPB SCH ×2 (05:23→17:34)
[2022-11-05] MEDS: INSULIN HUMULIN R 100 UNIT/ML 3ML SQ SCH ×4 (05:57→20:25)
[2022-11-05] MEDS: LINEZOLID 600 MG/ISO-OSM 300 ML IV SCH ×2 (05:58→17:34)
[2022-11-05 08:09] VITALS: BP 101/66
[2022-11-05] MEDS: PSYLLIUM SEED 1 EACH PACKET PO SCH ×2 (08:46→20:18)
[2022-11-05] MEDS: TRAMADOL HCL 50 MG TABLET PO PRN ×2 (08:46→19:03)
[2022-11-05] MEDS: HONEY 1 APPL/ML TUBE TP SCH ×2 (08:48→20:18)
[2022-11-05] MEDS: PANTOPRAZOLE 40 MG/VIAL IVP SCH ×2 (08:49→21:00)
[2022-11-05] MEDS: BALSAM PERU/CASTOR OIL 60 GM TUBE TP SCH ×3 (08:50→20:23)
[2022-11-05 12:17] VITALS: BP 108/73
[2022-11-05] MEDS: MORPHINE 2 MG SYG IVP PRN (16:27)
[2022-11-05 16:29] VITALS: BP 102/66
[2022-11-05 19:21] VITALS: BP 92/64
[2022-11-06] VITALS (7 sets, daily range): BP systolic 92–117; BP diastolic 60–75
[2022-11-06] MEDS: TRAMADOL HCL 50 MG TABLET PO PRN ×2 (03:37→14:43)
[2022-11-06 03:52] LABS: HEMATOCRIT 30.3 % (42-54); MEAN CORPUSCULAR HEMOGLOBIN 31.5 pg (27.0-33.0); MEAN CORPUSCULAR HGB CONC 33.7 g/dL (32.0-36.0); MEAN CORPUSCULAR VOLUME 93.5 fL (79-99); RED BLOOD CELL COUNT(AUTO) 3.24 MIL/uL (4.50-6.20); RED CELL DISTRIBUTION WIDTH 15.7 % (11.0-15.5); WHITE BLOOD COUNT (AUTO) 7.3 K/uL (4.8-10.8)
[2022-11-06 04:05] LABS: CREATININE 1.3 mg/dL (0.5-1.5); MAGNESIUM 1.2 mg/dL (1.80-2.40); POTASSIUM 3.8 mmol/L (3.5-5.1)
[2022-11-06] MEDS: MEROPENEM 1 GM VIAL IVPB SCH (05:13)
[2022-11-06] MEDS: LINEZOLID 600 MG/ISO-OSM 300 ML IV SCH (05:13)
[2022-11-06] MEDS: INSULIN HUMULIN R 100 UNIT/ML 3ML SQ SCH ×4 (05:53→20:12)
[2022-11-06] MEDS: PANTOPRAZOLE 40 MG/VIAL IVP SCH ×3 (09:00→20:15)
[2022-11-06] MEDS: PSYLLIUM SEED 1 EACH PACKET PO SCH ×2 (09:02→20:12)
[2022-11-06] MEDS: HONEY 1 APPL/ML TUBE TP SCH ×2 (09:03→20:14)
[2022-11-06] MEDS: BALSAM PERU/CASTOR OIL 60 GM TUBE TP SCH ×3 (09:04→20:13)
[2022-11-06] MEDS ORDERED: PHARMACY COMMUNICATION MISC SCH (14:00)
[2022-11-06] MEDS: ZYVOX 600 MG TAB PO SCH (20:11)
[2022-11-07] MEDS: ZYVOX 600 MG TAB PO SCH ×2 (02:28→13:46)
[2022-11-07 03:40] VITALS: BP 95/68
[2022-11-07] MEDS: TRAMADOL HCL 50 MG TABLET PO PRN ×2 (04:27→10:53)
[2022-11-07 05:39] LABS: CREATININE 1.5 mg/dL (0.5-1.5); MAGNESIUM 1.1 mg/dL (1.80-2.40); POTASSIUM 5.1 mmol/L (3.5-5.1)
[2022-11-07] MEDS: INSULIN HUMULIN R 100 UNIT/ML 3ML SQ SCH ×3 (06:36→16:30)
[2022-11-07] MEDS ORDERED: PANTOPRAZOLE 40 MG TAB DR ONE (08:06)
[2022-11-07] MEDS: PSYLLIUM SEED 1 EACH PACKET PO SCH ×2 (08:11→20:31)
[2022-11-07] MEDS: PANTOPRAZOLE 40 MG/VIAL IVP SCH (08:11)
[2022-11-07] MEDS: MAGNESIUM OXIDE 400 MG TABLET PO SCH ×2 (08:11→20:31)
[2022-11-07] MEDS: HONEY 1 APPL/ML TUBE TP SCH ×2 (08:12→21:49)
[2022-11-07] MEDS: BALSAM PERU/CASTOR OIL 60 GM TUBE TP SCH ×3 (08:12→21:49)
[2022-11-07 08:14] VITALS: BP 103/79
[2022-11-07 10:40] VITALS: BP 105/75
[2022-11-07] MEDS ORDERED: PROMETHAZINE HCL 25 MG/ML 1ML AMPULE IM PRN (15:00)
[2022-11-07] MEDS ORDERED: PROMETHAZINE HCL 25 MG/ML 1ML AMPULE IM ONE (15:03)
[2022-11-07 15:15] VITALS: BP 114/56
[2022-11-07 20:24] VITALS: BP 116/82
[2022-11-08] VITALS (7 sets, daily range): BP systolic 98–117; BP diastolic 61–79
[2022-11-08] MEDS: ZYVOX 600 MG TAB PO SCH ×2 (01:05→16:11)
[2022-11-08 05:16] LABS: MEAN CORPUSCULAR HEMOGLOBIN 31.4 pg (27.0-33.0); MEAN CORPUSCULAR HGB CONC 32.7 g/dL (32.0-36.0); MEAN CORPUSCULAR VOLUME 96.1 fL (79-99); RED BLOOD CELL COUNT(AUTO) 3.85 MIL/uL (4.50-6.20); RED CELL DISTRIBUTION WIDTH 15.9 % (11.0-15.5); WHITE BLOOD COUNT (AUTO) 8.1 K/uL (4.8-10.8)
[2022-11-08 05:39] LABS: CREATININE 1.7 mg/dL (0.5-1.5); MAGNESIUM 1.1 mg/dL (1.80-2.40)
[2022-11-08] MEDS: MAGNESIUM OXIDE 400 MG TABLET PO SCH ×3 (08:00→20:21)
[2022-11-08] MEDS: BALSAM PERU/CASTOR OIL 60 GM TUBE TP SCH ×3 (08:21→20:21)
[2022-11-08] MEDS: PSYLLIUM SEED 1 EACH PACKET PO SCH ×2 (08:23→20:23)
[2022-11-08] MEDS: PANTOPRAZOLE 40 MG TAB DR PO SCH (08:23)
[2022-11-08] MEDS: HONEY 1 APPL/ML TUBE TP SCH ×2 (08:24→20:21)
[2022-11-08] MEDS: TRAMADOL HCL 50 MG TABLET PO PRN (16:11)
[2022-11-09] VITALS (7 sets, daily range): BP systolic 95–118; BP diastolic 55–84
[2022-11-09] MEDS: ZYVOX 600 MG TAB PO SCH ×2 (02:05→21:49)
[2022-11-09] MEDS: TRAMADOL HCL 50 MG TABLET PO PRN (03:05)
[2022-11-09] MEDS: MAGNESIUM OXIDE 400 MG TABLET PO SCH ×3 (08:00→21:49)
[2022-11-09] MEDS: PSYLLIUM SEED 1 EACH PACKET PO SCH ×2 (08:29→21:49)
[2022-11-09] MEDS: PANTOPRAZOLE 40 MG TAB DR PO SCH (08:29)
[2022-11-09] MEDS: HONEY 1 APPL/ML TUBE TP SCH ×2 (08:29→21:50)
[2022-11-09] MEDS: BALSAM PERU/CASTOR OIL 60 GM TUBE TP SCH (08:30)
[2022-11-09 10:47] LABS: MEAN CORPUSCULAR HEMOGLOBIN 31.8 pg (27.0-33.0); MEAN CORPUSCULAR HGB CONC 32.8 g/dL (32.0-36.0); MEAN CORPUSCULAR VOLUME 96.8 fL (79-99); RED BLOOD CELL COUNT(AUTO) 4.03 MIL/uL (4.50-6.20); RED CELL DISTRIBUTION WIDTH 15.7 % (11.0-15.5); WHITE BLOOD COUNT (AUTO) 7.9 K/uL (4.8-10.8)
[2022-11-09 11:00] LABS: CREATININE 2.2 mg/dL (0.5-1.5); MAGNESIUM 1.1 mg/dL (1.80-2.40); POTASSIUM 5.3 mmol/L (3.5-5.1)
[2022-11-10 04:00] VITALS: BP 93/69
[2022-11-10 08:00] VITALS: BP 96/61
[2022-11-10] MEDS: MAGNESIUM OXIDE 400 MG TABLET PO SCH ×3 (08:00→20:53)
[2022-11-10] MEDS: PSYLLIUM SEED 1 EACH PACKET PO SCH ×2 (08:25→20:54)
[2022-11-10] MEDS: ZYVOX 600 MG TAB PO SCH ×2 (08:26→20:53)
[2022-11-10] MEDS: PANTOPRAZOLE 40 MG TAB DR PO SCH (08:26)
[2022-11-10] MEDS: HONEY 1 APPL/ML TUBE TP SCH ×2 (08:28→20:54)
[2022-11-10] MEDS: TRAMADOL HCL 50 MG TABLET PO PRN (10:09)
[2022-11-10 12:00] VITALS: BP 107/73
[2022-11-10 16:00] VITALS: BP 100/67
[2022-11-10 20:04] VITALS: BP 119/70
[2022-11-11] VITALS (7 sets, daily range): BP systolic 88–100; BP diastolic 52–74
[2022-11-11] MEDS: TRAMADOL HCL 50 MG TABLET PO PRN ×2 (00:39→11:07)
[2022-11-11 05:58] LABS: HEMATOCRIT 36.3 % (42-54); MEAN CORPUSCULAR HEMOGLOBIN 30.9 pg (27.0-33.0); MEAN CORPUSCULAR HGB CONC 32.8 g/dL (32.0-36.0); MEAN CORPUSCULAR VOLUME 94.3 fL (79-99); RED BLOOD CELL COUNT(AUTO) 3.85 MIL/uL (4.50-6.20); RED CELL DISTRIBUTION WIDTH 15.6 % (11.0-15.5); WHITE BLOOD COUNT (AUTO) 7.1 K/uL (4.8-10.8)
[2022-11-11 06:31] LABS: CREATININE 2.1 mg/dL (0.5-1.5); MAGNESIUM 1.2 mg/dL (1.80-2.40); POTASSIUM 4.9 mmol/L (3.5-5.1)
[2022-11-11] MEDS: MAGNESIUM OXIDE 400 MG TABLET PO SCH ×3 (08:00→21:00)
[2022-11-11] MEDS: ZYVOX 600 MG TAB PO SCH ×2 (08:44→21:02)
[2022-11-11] MEDS: PANTOPRAZOLE 40 MG TAB DR PO SCH (08:44)
[2022-11-11] MEDS: PSYLLIUM SEED 1 EACH PACKET PO SCH ×2 (08:44→21:02)
[2022-11-11] MEDS: HONEY 1 APPL/ML TUBE TP SCH ×2 (08:45→21:02)
[2022-11-11] MEDS ORDERED: DIPHENOXYLATE HCL/ATROPINE 2.5/0.025 MG TAB PO SCH (11:00)
[2022-11-11] MEDS ORDERED: MAGNESIUM OXIDE 400 MG TABLET PO SCH (21:00)
[2022-11-12 04:00] VITALS: BP 101/60
[2022-11-12 04:59] LABS: HEMATOCRIT 35.6 % (42-54); MEAN CORPUSCULAR HEMOGLOBIN 31.4 pg (27.0-33.0); MEAN CORPUSCULAR HGB CONC 33.1 g/dL (32.0-36.0); MEAN CORPUSCULAR VOLUME 94.7 fL (79-99); RED BLOOD CELL COUNT(AUTO) 3.76 MIL/uL (4.50-6.20); RED CELL DISTRIBUTION WIDTH 15.4 % (11.0-15.5); WHITE BLOOD COUNT (AUTO) 8.3 K/uL (4.8-10.8)
[2022-11-12 05:56] LABS: CREATININE 1.7 mg/dL (0.5-1.5); MAGNESIUM 1.1 mg/dL (1.80-2.40); POTASSIUM 5.1 mmol/L (3.5-5.1)
[2022-11-12 07:56] VITALS: BP 106/67
[2022-11-12] MEDS: MAGNESIUM OXIDE 400 MG TABLET PO SCH ×2 (08:00→08:54)
[2022-11-12] MEDS: ZYVOX 600 MG TAB PO SCH (08:54)
[2022-11-12] MEDS: PANTOPRAZOLE 40 MG TAB DR PO SCH (08:54)
[2022-11-12] MEDS: PSYLLIUM SEED 1 EACH PACKET PO SCH (08:54)
[2022-11-12] MEDS: TRAMADOL HCL 50 MG TABLET PO PRN (08:55)
[2022-11-12] MEDS: HONEY 1 APPL/ML TUBE TP SCH (11:04)
[2022-11-12 11:52] VITALS: BP 107/74
[2022-11-12 16:00] VITALS: BP 102/71
== END 2022-11-12 19:25 | disposition home or self-care (01) | DRG 871 ==
LOC: EDH 14:03 → EDHIP 16:55 → OBSVTOIN 16:55 → 2DH 11-01 22:33 → 4CH 11-06 15:11
PROVIDERS: ADMIT Internal Medicine Infectious Disease; ATTEND Internal Medicine Infectious Disease
DX: A41.9 Sepsis, unspecified organism (principal); J96.01 Acute respiratory failure with hypoxia; L89.153 Pressure ulcer of sacral region, stage 3; R65.21 Severe sepsis with septic shock; N17.9 Acute kidney failure, unspecified; K31.1 Adult hypertrophic pyloric stenosis; K43.3 Parastomal hernia with obstruction, without gangrene; L03.311 Cellulitis of abdominal wall; E44.0 Moderate protein-calorie malnutrition; L89.312 Pressure ulcer of right buttock, stage 2; N18.9 Chronic kidney disease, unspecified; I12.9 Hypertensive chronic kidney disease with stage 1 through stage 4 chronic kidney disease, or unspecified chronic kidney disease; E11.22 Type 2 diabetes mellitus with diabetic chronic kidney disease; I25.10 Atherosclerotic heart disease of native coronary artery without angina pectoris; E86.0 Dehydration; R53.81 Other malaise; E78.5 Hyperlipidemia, unspecified; D50.9 Iron deficiency anemia, unspecified; F32.A Depression, unspecified; E66.9 Obesity, unspecified; F19.10 Other psychoactive substance abuse, uncomplicated; S90.31XA Contusion of right foot, initial encounter; X58.XXXA Exposure to other specified factors, initial encounter; Z95.1 Presence of aortocoronary bypass graft; Z83.3 Family history of diabetes mellitus; Z93.3 Colostomy status; Y93.89 Activity, other specified; Y92.89 Other specified places as the place of occurrence of the external cause; Y99.8 Other external cause status; Z82.3 Family history of stroke; Z82.49 Family history of ischemic heart disease and other diseases of the circulatory system; Z82.5 Family history of asthma and other chronic lower respiratory diseases; Z68.22 Body mass index [BMI] 22.0-22.9, adult
CPT/HCPCS: 36415; 36600; 71045; 74018; 74176; 80048; 80053; 81001; 82330; 82550; 82803; 82948; 83605; 83735; 83880; 84100; 84145; 84484; 85025; 85027; 87040; 87070; 87077; 87088; 87186; 93005; 97039; A5061; A5073; C9113; G0378; J0780; J1815; J2020; J2185; J2270; J2370; J2405; J2543; J2550; J3370; J3475; J7030; J7042

== ENCOUNTER 2023-01-14 13:51 | Inpatient (IN) | payer OTHER, MEDICARE ==
[~2023-01-14] VITALS: Ht 170.2 cm; Wt 63.8 kg
[~2023-01-14 13:51] MED LIST changes: -ATOR40TA71 PO; -DICY20TA3 PO; -FERR-82 PO; -FOLI0.8T2 PO; -LISI5TAB21 PO; +SERT-438 PO
[2023-01-14 14:20] LABS: BASOPHILS # (AUTO) 0.04 K/uL (0.00-0.20); BASOPHILS % (AUTO) 0.3 % (0.0-5.0); EOSINOPHILS # (AUTO) 0.12 K/uL (0.00-0.70); HEMATOCRIT 44.9 % (42-54); IMMATURE GRANULOCYTE ABSOLUTE 0.07 K/uL (0-1); LYMPHOCYTES # (AUTO) 1.2 K/uL (1.0-4.8); LYMPHOCYTES % (AUTO) 10.6 % (21.0-51.0); MEAN CORPUSCULAR HEMOGLOBIN 31.7 pg (27.0-33.0); MEAN CORPUSCULAR HGB CONC 33.6 g/dL (32.0-36.0); MEAN CORPUSCULAR VOLUME 94.3 fL (79-99); MONOCYTES # (AUTO) 0.7 K/uL (0.1-1.0); NEUTROPHILS # (AUTO) 9.3 K/uL (1.8-7.7); NEUTROPHILS % (AUTO) 81.5 % (40.0-77.0); PLATELET COUNT (AUTO) 359 K/uL (130-400); RED BLOOD CELL COUNT(AUTO) 4.76 MIL/uL (4.50-6.20); RED CELL DISTRIBUTION WIDTH 14.5 % (11.0-15.5); WHITE BLOOD COUNT (AUTO) 11.5 K/uL (4.8-10.8)
[2023-01-14] MEDS ORDERED: ONDANSETRON 4MG INJ IVP ONE (14:30)
[2023-01-14] MEDS ORDERED: MORPHINE 4 MG SYG IVP ONE (14:30)
[2023-01-14] MEDS ORDERED: 0.9%NACL 1000ML 1,000 ML IV SCH ×2 (14:30→16:00)
[2023-01-14 14:38] LABS: CREATININE 4.8 mg/dL (0.5-1.5); POTASSIUM 4.6 mmol/L (3.5-5.1)
[2023-01-14 14:43] LABS: ALBUMIN 3.6 g/dL (3.5-5.0); BILIRUBIN,TOTAL 0.3 mg/dL (0.2-1.0)
[2023-01-14 15:16] LABS: B-TYPE NATRIURETIC PEPTIDE 19 pg/mL (0-100)
[2023-01-14] MEDS: NOREPINEPHRIN 4MG/NS 250ML 250 ML IV SCH ×3 (16:20→23:31)
[2023-01-14 16:39] LABS: APPEARANCE,URINE CLEAR (CLEAR); BILIRUBIN,URINE NEGATIVE (NEGATIVE); COLOR,URINE YELLOW (YELLOW); GLUCOSE, URINE (UA) NEGATIVE (NEGATIVE); KETONES,URINE NEGATIVE (NEGATIVE); LEUKOCYTE ESTERASE ,URINE 500 Leu/uL (NEGATIVE); NITRATE,URINE NEGATIVE (NEGATIVE); OCCULT BLOOD,URINE NEGATIVE (NEGATIVE); PH,URINE 5.5 (5.0-8.0); PROTEIN,URINE 30 mg/dL (NEGATIVE); UROBILINOGEN,URINE 0.2 mg/dL (0.2-1.0)
[2023-01-14 16:43] LABS: ADD UA MICROSCOPIC YES
[2023-01-14 16:48] LABS: BACTERIA,URINE FEW /HPF (None Seen); MUCUS,URINE RARE LPF (None Seen); NON-SQUAMOUS EPITHELIAL CELL <1 /HPF (0-2); SQUAMOUS EPITHELIAL CELL,UR RARE /HPF (0-2); UNCLASSIFIED CRYSTAL 2 /HPF (None Seen)
[2023-01-14] MEDS ORDERED: VANCOMYCIN KIT 1 GM/250 ML IV.KIT IV ONE (17:00)
[2023-01-14] MEDS ORDERED: ZOSYN 3.375GM +NS 50ML IVPB ONE (17:00)
[2023-01-14] MEDS: DEXTROSE 5 % AND 0.9 % NACL 1,000 ML IV SCH (19:55)
[2023-01-14] MEDS ORDERED: ONDANSETRON 4MG INJ IVP PRN (20:00)
[2023-01-14] MEDS ORDERED: ACETAMINOPHEN 325 MG TAB PO PRN (20:00)
[2023-01-14] MEDS: MORPHINE 2 MG SYG IVP PRN (20:20)
[2023-01-14] MEDS ORDERED: POLYETHYLENE GLYCOL 3350 17 GM POWD.PACK PO PRN (21:00)
[2023-01-14] MEDS ORDERED: NITROGLYCERIN 0.4 MG SL TAB SL PRN (21:00)
[2023-01-14] MEDS ORDERED: ALBUTEROL 0.083% 2.5 MG/3 ML INH IH PRN (21:00)
[2023-01-14] MEDS ORDERED: GUAIFENESIN SUGAR-FREE 100 MG/5 ML UDCUP PO PRN (21:00)
[2023-01-14] MEDS ORDERED: ALPRAZOLAM 0.5 MG TABLET PO PRN (21:00)
[2023-01-14] MEDS ORDERED: DOCUSATE SODIUM 100 MG CAP PO PRN (21:00)
[2023-01-14] MEDS ORDERED: DIPHENHYDRAMINE HCL 25 MG CAPSULE PO PRN (21:00)
[2023-01-14] MEDS ORDERED: GUAIFENESIN-DM 200/20 MG 10 ML PO PRN (21:00)
[2023-01-14] MEDS ORDERED: LACTULOSE 20 GM/30 ML UDCUP PO PRN (21:00)
[2023-01-14] MEDS ORDERED: DiphenhydrAMINE HCL 50 MG/ML VIAL IV PRN (21:00)
[2023-01-14] MEDS ORDERED: CEFEPIME HCL 1 GM VIAL ONE (21:28)
[2023-01-14] MEDS: METRONIDAZOLE 500MG/100ML BAG 100 ML IVPB SCH (21:29)
[2023-01-14] MEDS: FAMOTIDINE 20MG VIAL IV SCH (21:29)
[2023-01-14] MEDS: 0.9%NACL 1000ML 1,000 ML IV SCH (21:29)
[2023-01-14] MEDS ORDERED: CEFEPIME HCL IVPB SCH (21:30)
[2023-01-14] MEDS ORDERED: COMPOUND IV REFRIGERATED 1 EACH IVSOLN MISC PRN (21:30)
[2023-01-14] MEDS ORDERED: [UNRECOGNIZED DRUG - OTHER] IVPB SCH (21:30)
[2023-01-14] MEDS ORDERED: CEFEPIME HCL 2 GM VIAL IVPB SCH (21:30)
[2023-01-15] VITALS (40 sets, daily range): BP systolic 94–141; BP diastolic 35–84; PULSE 42–70; RESP 12–22; O2SAT 99
[2023-01-15] MEDS: NOREPINEPHRIN 4MG/NS 250ML 250 ML IV SCH ×3 (02:45→18:11)
[2023-01-15] MEDS: METRONIDAZOLE 500MG/100ML BAG 100 ML IVPB SCH (05:51)
[2023-01-15] MEDS: 0.9%NACL 1000ML 1,000 ML IV SCH ×2 (06:09→16:02)
[2023-01-15 06:48] LABS: BASOPHILS # (AUTO) 0.08 K/uL (0.00-0.20); BASOPHILS % (AUTO) 0.5 % (0.0-5.0); EOSINOPHILS # (AUTO) 0.13 K/uL (0.00-0.70); EOSINOPHILS % (AUTO) 0.8 % (0.0-8.0); HEMATOCRIT 39.7 % (42-54); IMMATURE GRANULOCYTE ABSOLUTE 0.06 K/uL (0-1); LYMPHOCYTES # (AUTO) 1.4 K/uL (1.0-4.8); LYMPHOCYTES % (AUTO) 8.9 % (21.0-51.0); MEAN CORPUSCULAR HEMOGLOBIN 31.7 pg (27.0-33.0); MEAN CORPUSCULAR VOLUME 93.2 fL (79-99); MONOCYTES # (AUTO) 1.5 K/uL (0.1-1.0); MONOCYTES % (AUTO) 9.3 % (3.0-13.0); NEUTROPHILS # (AUTO) 12.5 K/uL (1.8-7.7); NEUTROPHILS % (AUTO) 80.1 % (40.0-77.0); PLATELET COUNT (AUTO) 381 K/uL (130-400); RED BLOOD CELL COUNT(AUTO) 4.26 MIL/uL (4.50-6.20); RED CELL DISTRIBUTION WIDTH 14.6 % (11.0-15.5); WHITE BLOOD COUNT (AUTO) 15.6 K/uL (4.8-10.8)
[2023-01-15 07:15] LABS: ALBUMIN 3.2 g/dL (3.5-5.0); BILIRUBIN,TOTAL 0.3 mg/dL (0.2-1.0); CREATININE 2.8 mg/dL (0.5-1.5); MAGNESIUM 1.4 mg/dL (1.80-2.40); POTASSIUM 3.9 mmol/L (3.5-5.1); THYROID STIMULATING HORMONE 0.52 uIU/mL (0.36-3.74); TOTAL PROTEIN, SERUM 7.2 g/dL (6.0-8.3)
[2023-01-15] MEDS: FAMOTIDINE 20MG VIAL IV SCH ×2 (08:06→20:33)
[2023-01-15] MEDS ORDERED: 0.9%NACL 1000ML 1,000 ML IV ONE (09:00)
[2023-01-15 09:25] LABS: WBC MORPHOLOGY CONSISTENT W/DIFF
[2023-01-15 13:34] LABS: AMPHET/METH SCREEN,URINE NEGATIVE (NEGATIVE); BARBITURATE SCREEN, URINE NEGATIVE (NEGATIVE); BENZODIAZEPINES SCREEN,URINE NEGATIVE (NEGATIVE); CANNABINOID SCREEN,URINE POSITIVE (NEGATIVE); COCAINE SCREEN,URINE POSITIVE (NEGATIVE); OPIATE SCREEN,URINE NEGATIVE (NEGATIVE); PHENCYCLIDINE SCREEN,URINE NEGATIVE (NEGATIVE)
[2023-01-15] MEDS: ONDANSETRON 4MG INJ IV PRN ×2 (13:49→21:28)
[2023-01-15] MEDS: DEXTROSE 5 % AND 0.9 % NACL 1,000 ML IV SCH (14:48)
[2023-01-15] MEDS ORDERED: COMPOUND IV MISC 1 EACH IVSOLN MISC PRN (15:30)
[2023-01-15] MEDS: MORPHINE 2 MG SYG IVP PRN (15:56)
[2023-01-15 16:02] LABS: INR 0.95 (0.85-1.15); PROTHROMBIN TIME 11.1 SEC (9.6-11.6)
[2023-01-15] MEDS: MEROPENEM 1 GM in 0.9%NACL 100ML 100 ML IV SCH (16:02)
[2023-01-15] MEDS ORDERED: DIPHENOXYLATE HCL/ATROPINE 2.5/0.025 MG TAB PO ONE (17:30)
[2023-01-16] VITALS (76 sets, daily range): BP systolic 72–126; BP diastolic 35–77; PULSE 40–92; RESP 11–24; O2SAT 97–99
[2023-01-16] MEDS: DIPHENOXYLATE HCL/ATROPINE 2.5/0.025 MG TAB PO SCH ×3 (00:27→16:33)
[2023-01-16] MEDS: MEROPENEM 1 GM in 0.9%NACL 100ML 100 ML IV SCH ×2 (00:32→14:17)
[2023-01-16] MEDS: 0.9%NACL 1000ML 1,000 ML IV SCH ×2 (02:22→14:12)
[2023-01-16] MEDS: ONDANSETRON 4MG INJ IV PRN ×2 (04:20→10:27)
[2023-01-16 04:21] LABS: MEAN CORPUSCULAR HGB CONC 33.7 g/dL (32.0-36.0); MEAN CORPUSCULAR VOLUME 94.9 fL (79-99); RED BLOOD CELL COUNT(AUTO) 3.69 MIL/uL (4.50-6.20); RED CELL DISTRIBUTION WIDTH 14.4 % (11.0-15.5); WHITE BLOOD COUNT (AUTO) 10.9 K/uL (4.8-10.8)
[2023-01-16] MEDS: MORPHINE 2 MG SYG IVP PRN ×3 (04:21→19:50)
[2023-01-16 04:55] LABS: CREATININE 1.6 mg/dL (0.5-1.5); MAGNESIUM 1.2 mg/dL (1.80-2.40); POTASSIUM 3.5 mmol/L (3.5-5.1)
[2023-01-16] MEDS: DEXTROSE 5 % AND 0.9 % NACL 1,000 ML IV SCH ×3 (05:20→22:20)
[2023-01-16] MEDS: PSYLLIUM SEED 1 EACH PACKET PO SCH (08:51)
[2023-01-16] MEDS: FAMOTIDINE 20MG VIAL IV SCH ×2 (08:51→19:49)
[2023-01-16] MEDS: HONEY 1 APPL/ML TUBE TP SCH (08:51)
[2023-01-16] MEDS: SODIUM BICARBONATE 650 MG TAB PO SCH ×3 (08:52→19:49)
[2023-01-16] MEDS: KCL 20 MEQ ERTAB PO PRN ×4 (08:52→19:50)
[2023-01-16] MEDS: MAGNESIUM 2GM PREMIX 50ML 50 ML IV PRN ×2 (08:53→17:04)
[2023-01-16] MEDS ORDERED: GLUCAGON 1MG KIT 1 MG ML IM PRN (09:00)
[2023-01-16] MEDS ORDERED: SODIUM BICARB 50MEQ 50ML VIAL IV SCH (09:00)
[2023-01-16] MEDS ORDERED: POTASSIUM CHLORIDE 10% ELIXIR 20 MEQ/15 ML UDCUP PO PRN (09:00)
[2023-01-16] MEDS ORDERED: POTASSIUM CHLORIDE 20MEQ/100ML 100 ML IV PRN ×2 (09:00)
[2023-01-16] MEDS ORDERED: DEXTROSE 50%-WATER 50 ML DISP.SYRIN IV PRN (09:00)
[2023-01-16 10:51] LABS: ABG BASE EXCESS -2.3 mmol/L (-2.0-3.0); ABG HCO3 20.3 mmol/L (21.0-28.0); ABG OXYGEN SATURATION 96.9 % (95.0-99.0); ABG PCO2 30 mmHg (35-48); ABG PH 7.452 (7.35-7.450); DEVICE COMMENT RR; PO2, ARTERIAL BG 84.6 mmHg (83.0-108.0)
[2023-01-16] MEDS: NOREPINEPHRIN 4MG/NS 250ML 250 ML IV SCH (11:52)
[2023-01-16] MEDS ORDERED: LACTATED RINGERS 1000ML 1,323 ML IV ONE (16:30)
[2023-01-16 16:31] LABS: CREATININE 1.3 mg/dL (0.5-1.5); POTASSIUM 3.3 mmol/L (3.5-5.1)
[2023-01-16 16:33] LABS: INR 0.95 (0.85-1.15); PROTHROMBIN TIME 11.1 SEC (9.6-11.6)
[2023-01-16] MEDS: ACETAMINOPHEN 325 MG TAB PO PRN (16:37)
[2023-01-16] MEDS: HEPARIN 5,000 UNIT VIAL SQ SCH (17:01)
[2023-01-17] VITALS (17 sets, daily range): BP systolic 100–154; BP diastolic 55–81; PULSE 44–73; RESP 13–24; O2SAT 97–98
[2023-01-17] MEDS: HEPARIN 5,000 UNIT VIAL SQ SCH ×4 (00:30→17:21)
[2023-01-17] MEDS: DIPHENOXYLATE HCL/ATROPINE 2.5/0.025 MG TAB PO SCH ×3 (01:00→17:10)
[2023-01-17] MEDS: MEROPENEM 1 GM in 0.9%NACL 100ML 100 ML IV SCH (01:30)
[2023-01-17] MEDS: PSYLLIUM SEED 1 EACH PACKET PO SCH ×2 (09:00→12:36)
[2023-01-17] MEDS: FAMOTIDINE 20MG VIAL IV SCH ×2 (09:00→20:58)
[2023-01-17] MEDS: HONEY 1 APPL/ML TUBE TP SCH (09:00)
[2023-01-17] MEDS: SODIUM BICARBONATE 650 MG TAB PO SCH ×3 (09:00→21:00)
[2023-01-17] MEDS: DEXTROSE 5 % AND 0.9 % NACL 1,000 ML IV SCH (10:37)
[2023-01-17 11:17] LABS: BASOPHILS # (AUTO) 0.05 K/uL (0.00-0.20); BASOPHILS % (AUTO) 0.7 % (0.0-5.0); EOSINOPHILS # (AUTO) 0.23 K/uL (0.00-0.70); EOSINOPHILS % (AUTO) 3.4 % (0.0-8.0); HEMATOCRIT 29.9 % (42-54); IMMATURE GRANULOCYTE ABSOLUTE 0.03 K/uL (0-1); LYMPHOCYTES # (AUTO) 0.6 K/uL (1.0-4.8); MEAN CORPUSCULAR HEMOGLOBIN 31.6 pg (27.0-33.0); MEAN CORPUSCULAR HGB CONC 33.4 g/dL (32.0-36.0); MEAN CORPUSCULAR VOLUME 94.6 fL (79-99); MONOCYTES # (AUTO) 0.5 K/uL (0.1-1.0); MONOCYTES % (AUTO) 6.8 % (3.0-13.0); NEUTROPHILS # (AUTO) 5.4 K/uL (1.8-7.7); NEUTROPHILS % (AUTO) 79.7 % (40.0-77.0); PLATELET COUNT (AUTO) 194 K/uL (130-400); RED BLOOD CELL COUNT(AUTO) 3.16 MIL/uL (4.50-6.20); RED CELL DISTRIBUTION WIDTH 14.4 % (11.0-15.5); WHITE BLOOD COUNT (AUTO) 6.8 K/uL (4.8-10.8)
[2023-01-17 13:03] LABS: BILIRUBIN,TOTAL 0.2 mg/dL (0.2-1.0); CREATININE 1.2 mg/dL (0.5-1.5); TOTAL PROTEIN, SERUM 4.7 g/dL (6.0-8.3)
[2023-01-17 13:04] LABS: POTASSIUM 2.9 mmol/L (3.5-5.1)
[2023-01-17] MEDS ORDERED: POTASSIUM CHLORIDE 20MEQ/100ML 100 ML IV PRN (14:00)
[2023-01-17] MEDS: POTASSIUM CHLORIDE 20MEQ/10ML 20 MEQ in LACTATED RINGERS 1000ML 1,000 ML IV SCH ×3 (14:14→23:40)
[2023-01-17 14:27] LABS: CREATININE 1.1 mg/dL (0.5-1.5); POTASSIUM 3.3 mmol/L (3.5-5.1)
[2023-01-17] MEDS ORDERED: LACTATED RINGERS 1000ML 1,323 ML IV ONE (14:30)
[2023-01-17 14:32] LABS: ALBUMIN 2.4 g/dL (3.5-5.0); BILIRUBIN,TOTAL 0.3 mg/dL (0.2-1.0); TOTAL PROTEIN, SERUM 5.6 g/dL (6.0-8.3)
[2023-01-17] MEDS: OCTREOTIDE ACETATE 100 MCG/ML AMP SQ SCH ×2 (15:01→23:39)
[2023-01-17] MEDS: KCL 20 MEQ ERTAB PO PRN (15:03)
[2023-01-17] MEDS: ACETAMINOPHEN 325 MG TAB PO PRN ×3 (15:06→22:31)
[2023-01-17] MEDS: ONDANSETRON 4MG INJ IV PRN ×2 (15:17→20:59)
[2023-01-17] MEDS: MIDODRINE HCL 5 MG TABLET PO SCH (20:59)
[2023-01-17] MEDS: MORPHINE 2 MG SYG IVP PRN ×2 (21:26→22:31)
[2023-01-18] VITALS (33 sets, daily range): BP systolic 97–148; BP diastolic 38–113; PULSE 39–74; RESP 10–53; O2SAT 92–98
[2023-01-18] MEDS: DIPHENOXYLATE HCL/ATROPINE 2.5/0.025 MG TAB PO SCH ×3 (01:07→16:57)
[2023-01-18 04:28] LABS: BASOPHILS # (AUTO) 0.08 K/uL (0.00-0.20); BASOPHILS % (AUTO) 1.1 % (0.0-5.0); EOSINOPHILS # (AUTO) 0.48 K/uL (0.00-0.70); EOSINOPHILS % (AUTO) 6.3 % (0.0-8.0); HEMATOCRIT 34.3 % (42-54); IMMATURE GRANULOCYTE ABSOLUTE 0.02 K/uL (0-1); LYMPHOCYTES # (AUTO) 1.2 K/uL (1.0-4.8); LYMPHOCYTES % (AUTO) 15.5 % (21.0-51.0); MEAN CORPUSCULAR HEMOGLOBIN 31.6 pg (27.0-33.0); MEAN CORPUSCULAR HGB CONC 32.7 g/dL (32.0-36.0); MEAN CORPUSCULAR VOLUME 96.9 fL (79-99); MONOCYTES # (AUTO) 0.7 K/uL (0.1-1.0); MONOCYTES % (AUTO) 8.7 % (3.0-13.0); NEUTROPHILS # (AUTO) 5.2 K/uL (1.8-7.7); NEUTROPHILS % (AUTO) 68.1 % (40.0-77.0); PLATELET COUNT (AUTO) 182 K/uL (130-400); RED BLOOD CELL COUNT(AUTO) 3.54 MIL/uL (4.50-6.20); RED CELL DISTRIBUTION WIDTH 14.2 % (11.0-15.5); WHITE BLOOD COUNT (AUTO) 7.6 K/uL (4.8-10.8)
[2023-01-18 04:47] LABS: ALBUMIN 2.2 g/dL (3.5-5.0); BILIRUBIN,TOTAL 0.3 mg/dL (0.2-1.0); MAGNESIUM 1.2 mg/dL (1.80-2.40); POTASSIUM 4.5 mmol/L (3.5-5.1); TOTAL PROTEIN, SERUM 5.2 g/dL (6.0-8.3)
[2023-01-18] MEDS: HEPARIN 5,000 UNIT VIAL SQ SCH ×2 (06:32→16:57)
[2023-01-18] MEDS: POTASSIUM CHLORIDE 20MEQ/10ML 20 MEQ in LACTATED RINGERS 1000ML 1,000 ML IV SCH ×4 (06:34→23:25)
[2023-01-18] MEDS: OCTREOTIDE ACETATE 100 MCG/ML AMP SQ SCH ×3 (07:06→23:18)
[2023-01-18] MEDS: MAGNESIUM 2GM PREMIX 50ML 50 ML IV PRN (07:45)
[2023-01-18] MEDS: MORPHINE 2 MG SYG IVP PRN (08:14)
[2023-01-18] MEDS: ONDANSETRON 4MG INJ IV PRN (08:14)
[2023-01-18] MEDS: FAMOTIDINE 20MG VIAL IV SCH ×2 (08:14→21:17)
[2023-01-18] MEDS: PSYLLIUM SEED 1 EACH PACKET PO SCH (09:30)
[2023-01-18] MEDS: SODIUM BICARBONATE 650 MG TAB PO SCH ×2 (09:30→21:18)
[2023-01-18] MEDS: HONEY 1 APPL/ML TUBE TP SCH (09:32)
[2023-01-18] MEDS: MIDODRINE HCL 5 MG TABLET PO SCH ×3 (09:32→21:00)
[2023-01-18] MEDS ORDERED: POTASSIUM PHOS 15 mMOL+NS250ML 250 ML IV PRN (12:00)
[2023-01-19] VITALS (8 sets, daily range): BP systolic 126–155; BP diastolic 63–75; PULSE 42–50; RESP 17–22; O2SAT 96–97
[2023-01-19] MEDS: DIPHENOXYLATE HCL/ATROPINE 2.5/0.025 MG TAB PO SCH ×3 (00:05→16:44)
[2023-01-19] MEDS: MORPHINE 2 MG SYG IVP PRN ×3 (00:29→16:44)
[2023-01-19] MEDS: HEPARIN 5,000 UNIT VIAL SQ SCH ×2 (05:17→16:54)
[2023-01-19 05:57] LABS: BASOPHILS # (AUTO) 0.06 K/uL (0.00-0.20); BASOPHILS % (AUTO) 0.7 % (0.0-5.0); EOSINOPHILS # (AUTO) 0.48 K/uL (0.00-0.70); HEMATOCRIT 30.6 % (42-54); IMMATURE GRANULOCYTE ABSOLUTE 0.02 K/uL (0-1); LYMPHOCYTES # (AUTO) 1.3 K/uL (1.0-4.8); LYMPHOCYTES % (AUTO) 15.7 % (21.0-51.0); MEAN CORPUSCULAR HEMOGLOBIN 31.8 pg (27.0-33.0); MEAN CORPUSCULAR HGB CONC 33.7 g/dL (32.0-36.0); MEAN CORPUSCULAR VOLUME 94.4 fL (79-99); MONOCYTES # (AUTO) 0.7 K/uL (0.1-1.0); MONOCYTES % (AUTO) 8.2 % (3.0-13.0); NEUTROPHILS # (AUTO) 5.6 K/uL (1.8-7.7); NEUTROPHILS % (AUTO) 69.2 % (40.0-77.0); PLATELET COUNT (AUTO) 171 K/uL (130-400); RED BLOOD CELL COUNT(AUTO) 3.24 MIL/uL (4.50-6.20)
[2023-01-19 06:08] LABS: MAGNESIUM 1.3 mg/dL (1.80-2.40); POTASSIUM 4.5 mmol/L (3.5-5.1)
[2023-01-19] MEDS: OCTREOTIDE ACETATE 100 MCG/ML AMP SQ SCH ×3 (06:24→23:03)
[2023-01-19] MEDS: MAGNESIUM 2GM PREMIX 50ML 50 ML IV PRN (07:51)
[2023-01-19] MEDS: PSYLLIUM SEED 1 EACH PACKET PO SCH (09:00)
[2023-01-19] MEDS: POTASSIUM CHLORIDE 20MEQ/10ML 20 MEQ in LACTATED RINGERS 1000ML 1,000 ML IV SCH ×2 (10:28→16:55)
[2023-01-19] MEDS: HONEY 1 APPL/ML TUBE TP SCH (10:29)
[2023-01-19] MEDS: MIDODRINE HCL 5 MG TABLET PO SCH ×3 (10:30→21:41)
[2023-01-19] MEDS: SODIUM BICARBONATE 650 MG TAB PO SCH ×2 (10:30→21:41)
[2023-01-19] MEDS: FAMOTIDINE 20MG VIAL IV SCH ×2 (10:30→21:41)
[2023-01-19] MEDS: ONDANSETRON 4MG INJ IV PRN (17:35)
[2023-01-20] MEDS: DIPHENOXYLATE HCL/ATROPINE 2.5/0.025 MG TAB PO SCH ×3 (00:27→17:25)
[2023-01-20] MEDS: POTASSIUM CHLORIDE 20MEQ/10ML 20 MEQ in LACTATED RINGERS 1000ML 1,000 ML IV SCH ×3 (03:05→17:29)
[2023-01-20 03:17] VITALS: BP 147/76; PULSE 46; RESP 16
[2023-01-20 05:36] LABS: CREATININE 1.2 mg/dL (0.5-1.5); MAGNESIUM 1.4 mg/dL (1.80-2.40); POTASSIUM 4.3 mmol/L (3.5-5.1)
[2023-01-20] MEDS: HEPARIN 5,000 UNIT VIAL SQ SCH ×2 (05:39→17:29)
[2023-01-20] MEDS: OCTREOTIDE ACETATE 100 MCG/ML AMP SQ SCH ×3 (06:17→23:40)
[2023-01-20] MEDS: MAGNESIUM 2GM PREMIX 50ML 50 ML IV PRN (06:18)
[2023-01-20 08:00] VITALS: BP 134/72; PULSE 51; RESP 17; O2SAT 97
[2023-01-20] MEDS: PSYLLIUM SEED 1 EACH PACKET PO SCH (09:00)
[2023-01-20] MEDS: FAMOTIDINE 20MG VIAL IV SCH ×2 (09:32→21:36)
[2023-01-20] MEDS: SODIUM BICARBONATE 650 MG TAB PO SCH ×2 (09:32→21:36)
[2023-01-20] MEDS: ONDANSETRON 4MG INJ IV PRN ×3 (09:32→23:40)
[2023-01-20] MEDS: MIDODRINE HCL 5 MG TABLET PO SCH ×3 (09:32→21:36)
[2023-01-20] MEDS: HONEY 1 APPL/ML TUBE TP SCH (09:33)
[2023-01-20] MEDS: MORPHINE 2 MG SYG IVP PRN ×3 (09:40→23:40)
[2023-01-20 12:00] VITALS: BP 121/73; PULSE 43; RESP 18
[2023-01-20] MEDS: ACETAMINOPHEN 325 MG TAB PO PRN (13:13)
[2023-01-20 16:00] VITALS: BP 159/83; PULSE 43; RESP 18
[2023-01-20 19:25] VITALS: BP 152/79; PULSE 46; RESP 18
[2023-01-20 23:03] VITALS: BP 121/63; PULSE 46; RESP 20
[2023-01-21] VITALS (7 sets, daily range): BP systolic 118–162; BP diastolic 56–80; PULSE 38–52; RESP 16–20; O2SAT 95–97
[2023-01-21] MEDS: DIPHENOXYLATE HCL/ATROPINE 2.5/0.025 MG TAB PO SCH ×3 (01:10→16:38)
[2023-01-21] MEDS: POTASSIUM CHLORIDE 20MEQ/10ML 20 MEQ in LACTATED RINGERS 1000ML 1,000 ML IV SCH ×3 (03:26→18:39)
[2023-01-21] MEDS: OCTREOTIDE ACETATE 100 MCG/ML AMP SQ SCH ×3 (06:29→22:26)
[2023-01-21] MEDS: HEPARIN 5,000 UNIT VIAL SQ SCH ×2 (06:30→18:33)
[2023-01-21] MEDS: FAMOTIDINE 20MG VIAL IV SCH ×2 (10:17→20:11)
[2023-01-21] MEDS: PSYLLIUM SEED 1 EACH PACKET PO SCH (10:17)
[2023-01-21] MEDS: MIDODRINE HCL 5 MG TABLET PO SCH ×3 (10:17→20:11)
[2023-01-21] MEDS: HONEY 1 APPL/ML TUBE TP SCH (10:49)
[2023-01-21] MEDS: ONDANSETRON 4MG INJ IV PRN (13:12)
[2023-01-21] MEDS: MORPHINE 2 MG SYG IVP PRN (18:32)
[2023-01-22] VITALS: BP 143/68; PULSE 48; RESP 20
[2023-01-22] MEDS: DIPHENOXYLATE HCL/ATROPINE 2.5/0.025 MG TAB PO SCH ×3 (00:06→17:57)
[2023-01-22] MEDS: ONDANSETRON 4MG INJ IV PRN ×4 (00:06→22:18)
[2023-01-22] MEDS: MORPHINE 2 MG SYG IVP PRN ×4 (00:07→22:18)
[2023-01-22] MEDS: POTASSIUM CHLORIDE 20MEQ/10ML 20 MEQ in LACTATED RINGERS 1000ML 1,000 ML IV SCH ×2 (02:51→11:06)
[2023-01-22 04:00] VITALS: BP 152/82; PULSE 46; RESP 18
[2023-01-22] MEDS: OCTREOTIDE ACETATE 100 MCG/ML AMP SQ SCH ×4 (06:03→23:00)
[2023-01-22] MEDS: HEPARIN 5,000 UNIT VIAL SQ SCH ×2 (06:04→17:58)
[2023-01-22 06:11] LABS: HEMATOCRIT 31.5 % (42-54); MEAN CORPUSCULAR HEMOGLOBIN 31.4 pg (27.0-33.0); MEAN CORPUSCULAR HGB CONC 32.1 g/dL (32.0-36.0); MEAN CORPUSCULAR VOLUME 97.8 fL (79-99); RED BLOOD CELL COUNT(AUTO) 3.22 MIL/uL (4.50-6.20); RED CELL DISTRIBUTION WIDTH 13.9 % (11.0-15.5); WHITE BLOOD COUNT (AUTO) 8.5 K/uL (4.8-10.8)
[2023-01-22 06:14] LABS: CREATININE 1.1 mg/dL (0.5-1.5); MAGNESIUM 1.1 mg/dL (1.80-2.40); POTASSIUM 5.8 mmol/L (3.5-5.1)
[2023-01-22 08:00] VITALS: BP 145/77; PULSE 41; RESP 18; O2SAT 95
[2023-01-22] MEDS: MIDODRINE HCL 5 MG TABLET PO SCH ×3 (09:00→20:02)
[2023-01-22] MEDS: PSYLLIUM SEED 1 EACH PACKET PO SCH (09:17)
[2023-01-22] MEDS: FAMOTIDINE 20MG VIAL IV SCH ×2 (09:18→20:02)
[2023-01-22] MEDS: HONEY 1 APPL/ML TUBE TP SCH (09:18)
[2023-01-22] MEDS: MAGNESIUM 2GM PREMIX 50ML 50 ML IV PRN ×2 (10:39→15:06)
[2023-01-22 12:00] VITALS: BP 119/61; PULSE 40; RESP 17
[2023-01-22] MEDS: KAYEXALATE 15GM/60ML PO SCH (13:55)
[2023-01-22 16:00] VITALS: BP 127/70; PULSE 44; RESP 18
[2023-01-22 20:00] VITALS: BP 112/79; PULSE 59; RESP 19; O2SAT 95
[2023-01-22] MEDS: PROMETHAZINE HCL 25 MG/ML 1ML AMPULE IM PRN ×2 (20:03→20:07)
[2023-01-22] MEDS: ACETAMINOPHEN 325 MG TAB PO PRN (20:03)
[2023-01-23] VITALS: BP 154/79; PULSE 49; RESP 18
[2023-01-23] MEDS: OCTREOTIDE ACETATE 100 MCG/ML AMP SQ SCH ×2 (00:42→23:00)
[2023-01-23] MEDS: DIPHENOXYLATE HCL/ATROPINE 2.5/0.025 MG TAB PO SCH ×2 (00:42→00:55)
[2023-01-23] MEDS: HEPARIN 5,000 UNIT VIAL SQ SCH (05:30)
[2023-01-23] MEDS: PSYLLIUM SEED 1 EACH PACKET PO SCH (09:00)
[2023-01-23] MEDS: HONEY 1 APPL/ML TUBE TP SCH (09:00)
[2023-01-23] MEDS: KAYEXALATE 15GM/60ML PO SCH (13:30)
[2023-01-23] MEDS: MIDODRINE HCL 5 MG TABLET PO SCH (21:00)
[2023-01-23] MEDS: FAMOTIDINE 20MG VIAL IV SCH (21:00)
[2023-01-24] VITALS: BP 144/75; PULSE 47; RESP 18
[2023-01-24] MEDS: DIPHENOXYLATE HCL/ATROPINE 2.5/0.025 MG TAB PO SCH ×2 (00:32→09:14)
[2023-01-24 00:35] LABS: CREATININE 1.2 mg/dL (0.5-1.5); MAGNESIUM 1.8 mg/dL (1.80-2.40); POTASSIUM 4.8 mmol/L (3.5-5.1)
[2023-01-24 04:00] VITALS: BP 121/68; PULSE 45; RESP 18
[2023-01-24] MEDS: HEPARIN 5,000 UNIT VIAL SQ SCH (04:33)
[2023-01-24 08:00] VITALS: O2SAT 100
[2023-01-24 08:36] VITALS: BP 142/75; PULSE 46; RESP 16
[2023-01-24] MEDS: PSYLLIUM SEED 1 EACH PACKET PO SCH (09:14)
[2023-01-24] MEDS: HONEY 1 APPL/ML TUBE TP SCH (09:14)
[2023-01-24] MEDS: FAMOTIDINE 20MG VIAL IV SCH (09:14)
[2023-01-24] MEDS: MIDODRINE HCL 5 MG TABLET PO SCH (09:14)
[2023-01-24 11:00] VITALS: BP 101/75; PULSE 114; RESP 17
== END 2023-01-24 14:25 | disposition left against medical advice (07) | DRG 871 ==
LOC: EDH 13:51 → EDHIP 19:38 → 2CH 01-15 13:48 → 3AH 01-19 00:47
PROVIDERS: ADMIT Internal Medicine Infectious Disease; ATTEND Internal Medicine Infectious Disease
PROC: 02HV33Z Insertion of Infusion Device into Superior Vena Cava, Percutaneous Approach (ICD-10-PCS; principal; 2023-01-16)
DX: A41.9 Sepsis, unspecified organism (principal); L89.153 Pressure ulcer of sacral region, stage 3; N17.0 Acute kidney failure with tubular necrosis; R65.21 Severe sepsis with septic shock; K56.609 Unspecified intestinal obstruction, unspecified as to partial versus complete obstruction; N30.00 Acute cystitis without hematuria; E11.22 Type 2 diabetes mellitus with diabetic chronic kidney disease; I12.9 Hypertensive chronic kidney disease with stage 1 through stage 4 chronic kidney disease, or unspecified chronic kidney disease; E86.1 Hypovolemia; L89.612 Pressure ulcer of right heel, stage 2; E86.0 Dehydration; E83.42 Hypomagnesemia; E66.09 Other obesity due to excess calories; E78.00 Pure hypercholesterolemia, unspecified; E87.6 Hypokalemia; F14.90 Cocaine use, unspecified, uncomplicated; I25.10 Atherosclerotic heart disease of native coronary artery without angina pectoris; K31.89 Other diseases of stomach and duodenum; N18.2 Chronic kidney disease, stage 2 (mild); Z91.199 Patient's noncompliance with other medical treatment and regimen due to unspecified reason; Z83.3 Family history of diabetes mellitus; Z93.2 Ileostomy status; Z95.1 Presence of aortocoronary bypass graft; Z95.5 Presence of coronary angioplasty implant and graft; Z68.22 Body mass index [BMI] 22.0-22.9, adult
CPT/HCPCS: 36415; 36600; 71045; 74176; 80048; 80053; 80305; 81001; 82550; 82803; 82948; 83605; 83735; 83880; 84100; 84145; 84443; 84484; 85025; 85027; 85610; 87040; 87088; 93005; 97039; C1751; C1894; G0378; J0692; J1644; J2185; J2270; J2354; J2405; J2543; J2550; J3370; J3475; J3480; J3490; J7030; J7120